=== PATIENT | female | born 1980 | race Caucasian/White ===

== ENCOUNTER → 2016-10-14 | Outpatient (CLI) | payer OTHER ==
[~2016-10-14] MED LIST: ACET-2267 PO; AMOX-358 PO; BPR150TCR PO; BUPR-168 PO; CATHETER FLUSH 10 ML SYR IV PRN; CEFD300C3 PO; CLIN-62 PO; CLIN150C2 PO; CLIN300C11 PO; CYAN250014 PO; DESV50TA PO; DOCU-143 PO; ESTR10TA PO; FLC100T1 PO; FLC150T PO; HORMONE CREAM TOP; HYDR-1231 PO; HYDR-2890 PO; HYDR-3583 PO; HYDR-3714 PO; HYDR-3812 PO; HYOS0.1217 PO; IBUP-15 PO; IBUP-2055 PO; IOHEXOL 350 MG/ML 100 ML (OMNIPAQUE 350) VIAL IV ONE; LEVO750T6 PO; LISD40CA3 PO; METR500T PO; MINO100C2 PO; MTR500T PO; MULT1CAP27 PO; MUPI15CR TP; NAPR-243 PO; NITR100C3 PO; NS 100 ML (IVPB) BAG IV ONE; NYST1000 PO; OMEG10005 PO; ONDA-42 SL; OXYC-197 PO; PHEN200T27 PO; PHEN37.555 PO; SULF-222 PO; SULF1TAB35 PO; SULF1TAB38 PO; TETR500C2 PO; TRAM50TA2 PO; TRM50T PO; VICODIN; VICODIN 5 MG
--- OUTSIDE RECORDS SUMMARY | 2016-10-14 09:13 | XMS REPORT | Continuity of Care Document ---
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 Name Role Phone FINN SALAS DO PCP Insurance Providers Payer Name Policy Number Subscriber Name Relationship [facility] [id number] Deirdre Milligan 18 Self / Same As Patient Advance Directives Directive Response Recorded Date/Time Advance Directives No 02/19/16 10:00am Health Care Power of Associate Director Of Biostatistics No 02/19/16 10:00am Organ Donor Yes 02/19/16 10:00am Problems Active Problems Medical Problem Onset Date Status Abscess of abdominal wall Unknown Acute Abscess of breast Unknown Acute Cellulitis Unknown Acute Cellulitis of abdominal wall Unknown Acute Diarrhea Unknown Acute Encounter for incision and drainage procedure Unknown Acute Generalized abdominal pain Unknown Acute Generalized abdominal pain Unknown Acute Impetigo Unknown Acute Leukocytosis Unknown Acute Nausea and vomiting Unknown Acute Pain, abdominal, RLQ Unknown Acute Pain, abdominal, RUQ Unknown Acute Rectal bleeding Unknown Acute Vomiting and diarrhea Unknown Acute Vomiting and diarrhea Unknown Acute Wound check, abscess Unknown Acute Medications Current Home Medications Medication Dose Units Route Directions Days/Qty Instructions Start Date Docusate Sodium 100 Mg 100 Mg Oral Twice A Day 30 02/19/16 Hydrocodone/Acetaminophen 1 Each 1 Tab Oral Every 4HRS as needed for 20 02/19/16 Past Home Medications Medication Directions Ordered Status Estradiol 10 Mcg Tablet, 10 Mg Oral Twice A Day 08/28/10 Discontinued Naproxen 500 Mg Tablet, 1 Each Oral Three Times A Day And Prn 08/28/10 Discontinued Tramadol Hcl 50 Mg Tab, 50 Mg Oral Q4-6HOURS as needed 08/28/10 Discontinued Bupropion Hcl 75 Mg Tab, 150 Mg Oral Daily 01/16/11 Discontinued [Vicodin 5MG] , 01/21/11 Discontinued Hydrocodone Bit/Acetaminophen 1 Each Tablet, 1 Each Oral As Needed 06/16/11 Discontinued Desvenlafaxine Succinate 50 Mg Tab.sr.24h, 50 Mg Oral Daily 10/17/11 Discontinued [Hormone Cream] , Topically Daily 10/17/11 Discontinued Metronidazole 500 Mg Tab, 1 Each Oral Four Times Daily 10/26/11 Discontinued Trimethoprim/Sulfamethoxazole 1 Ea Tablet, 1 Ea Oral Twice A Day 10/26/11 Discontinued Fluconazole 100 Mg Tablet, 1 Each Oral Daily 10/26/11 Discontinued Tetracycline Hcl 500 Mg Capsule, 500 Mg Oral Four Times Daily 10/26/11 Discontinued Acetaminophen/Hydrocodone Bitart 1 Tab Tab, 1 - 2 Ea Oral Q 4 - 6 Hr Prn 07/27 Discontinued Nystatin (Mycostatin Oral Suspension) 60 Ml Btl, 0 Oral Four Times Daily 07/27 Discontinued Multivitamins 1 Each Capsule, 1 Each Oral Daily 03/05/12 Discontinued [place]-3 Fatty Acids 1,000 Mg Capsule, 1000 Mg Oral Daily 03/05/12 Discontinued Lisdexamfetamine Dimesylate 40 Mg Capsule, 40 Mg Oral Daily 10/21/12 Discontinued Trimethoprim/Sulfamethoxazole 1 Ea Tablet, 1 Ea Oral Twice A Day 03/21/13 Discontinued Phenazopyridine Hcl 200 Mg Tablet, 1 Each Oral Three Times A Day And Prn 03/27 Discontinued Tramadol Hcl 50 Mg Tablet, 50 Mg Oral Every 4HRS 03/21/13 Discontinued Levofloxacin 750 Mg Tablet, 750 Mg Oral Daily 07/18/13 Discontinued Clindamycin Hcl 150 Mg Cap, 3 Each Oral Every 8HRS 07/18/13 Discontinued Trimethoprim/Sulfamethoxazole 1 Ea Tablet, 1 Ea Oral Twice A Day 07/18/13 Discontinued Fluconazole 150 Mg Tablet, 1 Each Oral Once 07/18/13 Discontinued Phentermine Hcl 37.5 Mg Capsule, 37.5 Mg Oral As Needed 03/15/14 Discontinued Acetaminophen/Hydrocodone Bitart 1 Each Tablet, 1 Each Oral Every 4HRS as needed for Pain 07/01/14 Discontinued Clindamycin Hcl 150 Mg Capsule, 150 Mg Oral Three Times A Day 02/15/15 Discontinued Trimethoprim/Sulfamethoxazole 1 Ea Tablet, 1 Tab Oral Twice A Day 02/15/15 Discontinued Metronidazole Tab, 500 Mg Oral Twice A Day 02/15/15 Discontinued Hydrocodone Bit/Acetaminophen 1 Tab Tablet, 1 Tab Oral Every 4HRS as needed for Pain 02/15/15 Discontinued Clindamycin Hcl 150 Mg Capsule, 150 Mg Oral Every 6 Hours 02/15/15 Discontinued Hyoscyamine Sulfate (Levsin) 0.125 Mg/Tab Tab.rapdis, 1 Each Oral Every 4HRS as needed for Cramps 03/29/15 Discontinued Ondansetron Hcl 4 Mg Tab, 4 Mg Sublingual Every 4HRS as needed for Nausea Discontinued Hydrocodone Bit/Acetaminophen 1 Tab Tablet, 1 Tab Oral Every 6 Hours as needed for Pain 03/29/15 Discontinued Ibuprofen 200 Mg Tablet, 800 Mg Oral Every 6 Hours 05/30/15 Discontinued Clindamycin Hcl 300 Mg Capsule, 450 Mg Oral Every 6 Hours 05/30/15 Discontinued Ibuprofen 200 Mg Tablet, 800 Mg Oral Every 6 Hours as needed for Pain Discontinued Amoxicillin/Potassium Clav 1 Each Tablet, 1 Each Oral Twice A Day 06/11/15 Discontinued Amoxicillin/Potassium Clav 1 Each Tablet, 1 Tab Oral Twice A Day 06/26/15 Discontinued Ibuprofen 200 Mg Tablet, 600 Mg Oral Every 6 Hours as needed for Pain Discontinued Sulfamethoxazole/Trimethoprim 1 Each Tablet, 1 Each Oral Twice A Day Discontinued Minocycline Hcl 100 Mg Capsule, 100 Mg Oral Twice A Day 12/20/15 Discontinued Tramadol Hcl 50 Mg Tablet, 50 Mg Oral Every 4HRS as needed for Pain 12/20/15 Discontinued Social History Social History Problem Response Recorded Date/Time Alcohol Use Denies Use 02/19/2016 10:00am Recreational Drug Use No 02/19/2016 10:00am Recent Foreign Travel No 03/15/2014 9:57am Recent Infectious Disease Exposure No 03/15/2014 9:57am Hospitalization with Isolation Denies 03/15/2014 9:57am Sexually Transmitted Disease No 02/19/2016 10:00am HIV/AIDS No 02/19/2016 10:00am Do you dip or chew tobacco? No 12/20/2015 10:15pm Sexually Transmitted Disease No 02/19/2016 10:00am Hospitalization with Isolation Denies 03/15/2014 9:57am Hx Sexually Transmitted Disorders No 10/26/2012 11:18am Hospital Discharge Instructions No hospital discharge instructions. Plan of Care Prescriptions See Medication Section Functional Status No functional status results. Allergies, Adverse Reactions, Alerts Allergen Type Severity Reaction Status Last Updated ciprofloxacin HCl Allergy Unknown Active 12/20/15 ciprofloxacin ([id number]) Allergy Unknown Active 12/20/15 duloxetine ([id number]) Allergy Unknown Active 12/20/15 Immunizations No immunization records. Vital Signs No known vital signs results. Results Microbiology Results Procedure Source Result Collection Date/Time Result Date/Time Anaerobic Culture Tissue, Abdomen No anaerobes isolated 03/29/2016 10:59am 04/02/2016 10:59am Wound Culture Tissue, Abdomen STAPHYLOCOCCUS AUREUS 03/29/2016 10:59am 10:59am Anaerobic Culture Tissue, Abdominal No anaerobes isolated 05/10/2016 10: 00am 05/13/2016 12:33pm Wound Culture Tissue, Abdominal STAPHYLOCOCCUS AUREUS 05/10/2016 10:00am 7:28am Procedures No known history of procedures. Encounters Encounter Location Arrival/Admit Date Discharge/Depart Date Attending Provider Discharged Recurring [facility] 05/10/16 9:40am 11:59pm EMILIANA HUNT MD
--- NOTE | 2016-10-14 10:02 | Diagnostic Imaging Report ---
PROCEDURE: CT abdomen with contrast only. TECHNIQUE: Multiple contiguous axial images were obtained through the abdomen after the administration of intravenous contrast. INDICATION: Infected mesh. 100 mL of Omnipaque 350 is administered intravenously. FINDINGS: The lung bases are clear. The liver, the spleen, the adrenals, and the pancreas appear unremarkable. Cholecystectomy clips are seen. There are hernia defects in the anterior abdominal wall above the level of the umbilicus with two separate defects and question of a third small defect all around the midline above the umbilicus level along the anterior abdominal wall. Radiopaque markers of a mesh are seen along the anterior abdominal wall below the level of the umbilicus. There is diastases of the recti and bulging of the abdominal contents around the umbilicus level. There is no fluid collection or abscess. The herniated content is mostly omental fat in the above-mentioned hernias with minimal portion of bowel loops projecting into the anterior bulge and in the diastasis area and into one of the abdominal wall defects without CT evidence of incarceration or obstruction. The appendix is normal. The kidneys have symmetric enhancement and contrast excretion. No peritoneal fluid collection or free fluid in the abdomen identified. The osseous structures appear grossly unremarkable. IMPRESSION: There is diastasis of the recti with supraumbilical small ventral hernias. No fluid collection or abscess seen. Dictated by: Dictated on workstation # [id number]
== END ==
LOC: RAD 09:09
PROVIDERS: ATTEND Surgery
DX: Q79.59 Other congenital malformations of abdominal wall (principal); K43.9 Ventral hernia without obstruction or gangrene
CPT/HCPCS: 74160

== ENCOUNTER 2016-10-24 10:40 | Outpatient (CLI) | payer OTHER ==
[~2016-10-24] VITALS: Ht 165.1 cm; Wt 101.2 kg
[~2016-10-24 10:40] MED LIST changes: -ACET-2267 PO; -CATHETER FLUSH 10 ML SYR IV PRN; -CYAN250014 PO; -IOHEXOL 350 MG/ML 100 ML (OMNIPAQUE 350) VIAL IV ONE; -NS 100 ML (IVPB) BAG IV ONE; -OXYC-197 PO
--- OUTSIDE RECORDS SUMMARY | 2016-10-24 10:46 | XMS REPORT | Continuity of Care Document ---
Author Author [facility] Organization [facility] Address Unknown Phone Unavailable Care Team Providers Care Workers Compensation Coordinator Name Role Phone FINN SALAS DO PCP Insurance Providers Payer Name Policy Number Subscriber Name Relationship [facility] [id number] Deirdre Milligan 18 Self / Same As Patient Advance Directives Directive Response Recorded Date/Time Advance Directives No 02/19/16 10:00am Health Care Power of General Supervisor No 02/19/16 10:00am Organ Donor Yes 02/19/16 [...] Capsule, 1 Each Oral Daily 03/05/12 Discontinued [place]-3 Fatty Acids 1,000 Mg Capsule, 1000 Mg [...] ciprofloxacin HCl Allergy Unknown Active 12/20/15 ciprofloxacin ([id number]) Allergy Unknown Active 12/20/15 duloxetine ([id number]) Allergy Unknown Active 12/20/15 Immunizations No immunization [...] Discharge/Depart Date Attending Provider Discharged Recurring [facility] 05/10/16 9:40am 11:59pm EMILIANA HUNT MD
[2016-10-24 10:49] VITALS: BP 128/78
[2016-10-24 11:12] LABS: BASOPHILS % (AUTO) 0 % (0-10); EOSINOPHILS # (AUTO) 0.1 10^3/uL (0.0-0.3); EOSINOPHILS % (AUTO) 1 % (0-10); LYMPHOCYTES # (AUTO) 2.5 X 10^3 (1.0-4.0); LYMPHOCYTES % (AUTO) 25 % (12-44); MEAN CORPUSCULAR HEMOGLOBIN 31 PG (25-34); MEAN CORPUSCULAR HGB CONC 34 G/DL (32-36); MEAN CORPUSCULAR VOLUME 93 FL (80-99); MEAN PLATELET VOLUME 10.4 FL (7.4-10.4); MONOCYTES # (AUTO) 0.6 X 10^3 (0.0-1.0); MONOCYTES % (AUTO) 6 % (0-12); NEUTROPHILS # (AUTO) 6.6 X 10^3 (1.8-7.8); NEUTROPHILS % (AUTO) 67 % (42-75); PLATELET COUNT 204 10^3/uL (130-400); RED BLOOD COUNT 4.71 10^6/uL (4.35-5.85); RED CELL DISTRIBUTION WIDTH 12.4 % (10.0-14.5); WHITE BLOOD COUNT 9.8 10^3/uL (4.3-11.0)
== END 2016-10-24 11:05 | disposition home or self-care (01) ==
LOC: PREOP 10:40
PROVIDERS: ATTEND Surgery
DX: Z01.812 Encounter for preprocedural laboratory examination (principal); Z11.2 Encounter for screening for other bacterial diseases; T81.4XXA Infection following a procedure, initial encounter
CPT/HCPCS: 36415; 85025; 87081

== ENCOUNTER 2016-10-30 07:45 | Inpatient (IN) | payer OTHER ==
[~2016-10-30] VITALS: Ht 165.1 cm; Wt 101.2 kg
--- OUTSIDE RECORDS SUMMARY | 2016-10-30 07:48 | XMS REPORT | Continuity of Care Document ---
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 Name Role Phone FINN SALAS DO PCP Insurance Providers Payer Name Policy Number Subscriber Name Relationship [facility] [id number] Deirdre Milligan 18 Self / Same As Patient Advance Directives Directive Response Recorded Date/Time Advance Directives No 02/19/16 10:00am Health Care Power of Psychiatric Nursing Aide No 02/19/16 10:00am Organ Donor Yes 02/19/16 [...] Capsule, 1 Each Oral Daily 03/05/12 Discontinued [place]-3 Fatty Acids 1,000 Mg Capsule, 1000 Mg [...] ciprofloxacin HCl Allergy Unknown Active 12/20/15 ciprofloxacin ([id number]) Allergy Unknown Active 12/20/15 duloxetine ([id number]) Allergy Unknown Active 12/20/15 Immunizations No immunization [...] Discharge/Depart Date Attending Provider Discharged Recurring [facility] 05/10/16 9:40am 11:59pm EMILIANA HUNT MD
--- OUTSIDE RECORDS SUMMARY | 2016-10-30 07:49 | XMS REPORT | Continuity of Care Document ---
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 Name Role Phone FINN SALAS DO PCP Insurance Providers Payer Name Policy Number Subscriber Name Relationship [facility] [id number] Deirdre Milligan 18 Self / Same As Patient Advance Directives Directive Response Recorded Date/Time Advance Directives No 02/19/16 10:00am Health Care Power of Field Training Manager No 02/19/16 10:00am Organ Donor Yes 02/19/16 [...] Capsule, 1 Each Oral Daily 03/05/12 Discontinued [place]-3 Fatty Acids 1,000 Mg Capsule, 1000 Mg [...] ciprofloxacin HCl Allergy Unknown Active 12/20/15 ciprofloxacin ([id number]) Allergy Unknown Active 12/20/15 duloxetine ([id number]) Allergy Unknown Active 12/20/15 Immunizations No immunization [...] Date Attending Provider Discharged Recurring [facility] 05/10/16 9:40am 11:59pm EMILIANA HUNT MD
[2016-10-30] MEDS ORDERED: VANCOMYCIN 1 GM ADD-VANTAGE VIAL IV ONE (07:51)
[2016-10-30] MEDS ORDERED: SODIUM CHLORIDE (ADD-VANTAGE) 250 ML ONE (07:51)
[2016-10-30] MEDS ORDERED: metroNIDAZOLE 500MG/100ML IVPB 100 ML ONE (07:51)
[2016-10-30] MEDS ORDERED: MIDAZOLAM 2 MG/2 ML (VERSED) VIAL ONE ×2 (07:52→08:07)
[2016-10-30] MEDS ORDERED: ONDANSETRON 4 MG/2 ML (SDV) Z0FRAN ONE ×2 (07:53→08:06)
[2016-10-30] MEDS ORDERED: FAMOTIDINE 20MG/2ML IV (PEPCID) ONE (07:53)
[2016-10-30] MEDS ORDERED: BUP/EPI 0.25% 1:200,000 (MARCAINE) 30 ML VIAL ONE (07:54)
[2016-10-30] MEDS ORDERED: ONDANSETRON 4 MG/2 ML (SDV) Z0FRAN IV ONE (08:00)
[2016-10-30] MEDS ORDERED: MIDAZOLAM 2 MG/2 ML (VERSED) VIAL IV ONE (08:00)
[2016-10-30] MEDS ORDERED: metroNIDAZOLE 500 MG/100 ML IVPB (PRE-MIX) IV ONE (08:00)
[2016-10-30] MEDS ORDERED: FAMOTIDINE 20MG/2ML IV (PEPCID) IV ONE (08:00)
[2016-10-30] MEDS ORDERED: VANCOMYCIN 1 GM/NS 250 ML IVPB IV ONE ×2 (08:00)
[2016-10-30] MEDS ORDERED: LACTATED RINGERS 1,000 ML IV ONE ×3 (08:06→10:52)
[2016-10-30] MEDS ORDERED: SUCCINYLCHOLINE INJ 100 MG/5 ML SYR ONE ×2 (08:06→10:16)
[2016-10-30] MEDS ORDERED: proPOfol 200 MG/20 ML (DIPRIVAN) VIAL IV ONE (08:06)
[2016-10-30] MEDS ORDERED: LIDOCAINE PF 2% 10 ML (XYLOCAINE) AMP ONE (08:06)
[2016-10-30] MEDS ORDERED: ROCURONIUM 50 MG/5 ML (ZEMURON) VIAL IV ONE (08:06)
[2016-10-30] MEDS ORDERED: fentaNYL INJECTION 100 MCG/2 ML AMP ONE ×3 (08:07→10:56)
[2016-10-30] MEDS ORDERED: DEXAMETHASONE PF 10 MG/ML (DECADRON) VIAL ONE (08:09)
[2016-10-30] MEDS ORDERED: LIDOCAINE 1% 10 MG/ML 0.2 ML SYR (FOR IV START) ONE (08:26)
[2016-10-30] MEDS: LACTATED RINGERS 1,000 ML IV PRN ×2 (08:27→09:30)
[2016-10-30 08:30] VITALS: BP 124/69
--- NOTE | 2016-10-30 08:48 | Progress Note-Pre Operative ---
Pre-Operative Progress Note H&P Reviewed The H&P was reviewed, patient examined and no changes noted. Date H&P Reviewed: Oct 30, 2016 Time H&P Reviewed: 08:48 Pre-Operative Diagnosis: Persistent abdominal sinus with infected mesh BRAYDON OAKLEY MD Oct 30, 2016 8:48 am
[2016-10-30] MEDS ORDERED: MEPERIDINE (DEMEROL) INJ 50 MG/ML IVP PRN (09:00)
[2016-10-30] MEDS ORDERED: ONDANSETRON 4 MG/2 ML (SDV) Z0FRAN IVP PRN (09:00)
[2016-10-30] MEDS ORDERED: LIDOCAINE 1% INJ 20 ML (XYLOCAINE) VIAL INJ ONE (10:00)
[2016-10-30] MEDS ORDERED: SEVOFLURANE (ULTANE) 15 ML INHAL SOLN ONE ×2 (10:16→11:03)
[2016-10-30] MEDS ORDERED: NEOSTIGMINE (BLOXIVERZ ) 1 MG/1ML 10 ML VIAL ONE (10:22)
[2016-10-30] MEDS ORDERED: GLYCOPYRROLATE 0.2 MG/ML (ROBINUL) 2 ML VIAL ONE (10:22)
[2016-10-30] MEDS ORDERED: morphine INJ 10 MG/ML 1ML (SYR OR VIAL) ONE (11:40)
[2016-10-30] MEDS ORDERED: HYDROmorphone (DILAUDID) 2 MG/ML VIAL ONE (11:41)
[2016-10-30] MEDS: morphine INJ 10 MG/ML 1ML (SYR OR VIAL) IVP PRN ×2 (11:46→12:00)
--- NOTE | 2016-10-30 12:04 | Progress Note-Post Operative ---
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 Small bowel resection Anesthesia Type Gen. Estimated blood loss (mL): 200 mL Specimen(s) collected infected mesh and enterocutaneous fistula BRAYDON OAKLEY MD Oct 30, 2016 12:04 pm
[2016-10-30] MEDS: HYDROmorphone (DILAUDID) 2 MG/ML VIAL IVP PRN ×2 (12:10→12:20)
[2016-10-30 13:00] VITALS: BP 104/71
[2016-10-30] MEDS: ONDANSETRON 4 MG/2 ML (SDV) Z0FRAN IVP PRN ×2 (13:01→18:52)
[2016-10-30] MEDS: LACTATED RINGERS 1,000 ML IV SCH ×2 (13:13→15:57)
[2016-10-30] MEDS ORDERED: KETOROLAC 30 MG/ML VIAL IVP ONE (14:30)
[2016-10-30 15:35] VITALS: BP 102/66
[2016-10-30] MEDS: ceFAZolin INJECTION 1,000 MG in NS (IVPB) 50 ML IV SCH ×2 (15:57→23:12)
[2016-10-30] MEDS: fentaNYL INJECTION 100 MCG/2 ML AMP IV PRN ×3 (15:57→20:09)
[2016-10-30 17:00] VITALS: BP 104/70
[2016-10-30] MEDS: metroNIDAZOLE 500MG/100ML IVPB 100 ML IV SCH (17:38)
[2016-10-30] MEDS ORDERED: SCOPOLAMINE 1.5 MG (TRANSDERM-SCOP) PATCH TOP SCH (20:00)
[2016-10-30 20:10] VITALS: BP 99/66
[2016-10-31] VITALS (7 sets, daily range): BP systolic 97–114; BP diastolic 54–71
[2016-10-31] MEDS: metroNIDAZOLE 500MG/100ML IVPB 100 ML IV SCH (00:37)
[2016-10-31] MEDS: fentaNYL INJECTION 100 MCG/2 ML AMP IV PRN (02:24)
[2016-10-31] MEDS: LACTATED RINGERS 1,000 ML IV SCH ×2 (04:40→12:04)
--- NOTE | 2016-10-31 08:56 | Anesthesia-General Post-Op ---
General Patient Condition Mental Status/LOC: Same as Preop Cardiovascular: Satisfactory Nausea/Vomiting: Absent Respiratory: Satisfactory Pain: Controlled Complications: Absent Post Op Complications Complications None Follow Up Care/Instructions Patient Instructions None needed. Anesthesia/Patient Condition Patient Condition Patient is doing well, no complaints, stable vital signs, no apparent adverse anesthesia problems. No complications reported per nursing. NICOLE SNEED CRNA Oct 31, 2016 08:56
[2016-10-31] MEDS: oxyCODONE/APAP 5/325MG (PERCOCET 5) TABLET PO PRN ×3 (09:18→18:50)
[2016-10-31] MEDS ORDERED: CATHETER FLUSH 10 ML SYR IV PRN (12:00)
[2016-10-31] MEDS: ENOXAPARIN 40 MG/0.4 ML (LOVENOX) SYR SC SCH (12:30)
--- NOTE | 2016-10-31 13:31 | OPERATIVE REPORT ---
PROCEDURE PHYSICIAN: BRAYDON OAKLEY DATE OF PROCEDURE: 10/30/2016 PREOPERATIVE DIAGNOSIS: 1. Persistent abdominal sinus. 2. Infected polypropylene mesh. POSTOPERATIVE DIAGNOSIS: 1. Enterocutaneous fistula. 2. Infected polypropylene mesh. OPERATION: 1. Exploratory laparotomy. 2. Removal of infected polypropylene mesh. 3. Small bowel resection with anastomosis. SURGEON: Chris. ANESTHESIA: General anesthesia. BLOOD LOSS: 200 mL. FLUIDS: 2200 mL of crystalloids. TYPE OF WOUND: Type III (contaminant wound). INDICATION FOR THE PROCEDURE: This lady underwent laparoscopic cholecystectomy with repair of a ventral hernia with permanent mesh in 2009. She has suffered persistent and unresolved drainage from the central aspect of the wound. Two years ago, she had undergone wound exploration and removal of what was reported as infected mesh. However, her symptoms continued and therefore, further exploration with a view to encountering additional pieces of the infected mesh and possibly performing small bowel resection were discussed with her. Informed consent was obtained after reviewing the operative details and highlighting increased complications and the possibility of persistent symptoms requiring additional surgery. DESCRIPTION OF PROCEDURE: She underwent mechanical bowel preparation including oral antibiotics the day before surgery. She was brought to the operating room and general anesthesia induced using an endotracheal tube. A gram of vancomycin and 500 mg of Flagyl were administered intravenously as prophylaxis against infection. Sequential compression devices were placed around her legs, to minimize the risk of venous thrombosis. A Foy catheter was placed to decompress the bladder during surgery. It was removed at the end of the operation. Abdomen was prepared and draped in the usual sterile manner. An elliptical incision about 12 cm long was made, incorporating the draining sinus at the center of the wound. The anterior rectus sheath was defined. Probing of the sinus led to a conglomerate mass incorporating pieces of polypropylene mesh, metallic tackers used to anchor the mesh and a segment of the small bowel. There was involvement of the small bowel leading to an enterocutaneous fistula. All the tackers were removed individually. The mass involving the infected mesh and the associated segment of the small bowel leading to enterocutaneous fistula were . The small bowel was resected (a total 15 cm in length) and a [id number] anastomosis created using a [id number]-75 stapler. The common enterotomy was closed using a TA 55 stapler. 3-0 silk suture was placed along the crotch of the anastomosis to avoid any tension on the staple line. The bowel was then placed back in the peritoneal cavity, which was thoroughly irrigated with saline. Further exploration did not reveal any other abnormality. Omentum was from the superior aspect of the incision and the transverse colon was found to be uninvolved. The fascia was then approximated using number 2 Prolene in a continuous fashion. Subcutaneous tissue was gently approximated using 0 PDS. Skin was left open in anticipation of healing by secondary intention. She tolerated the procedure well, was extubated in the operating room and taken to the recovery room in a stable condition. Auxier, sponges, and instruments were correct at the end of the operation. Job ID: [id number] Dictated Date: 10/30/2016 11:07:39 Transportation Equipment Painter Date: 10/31/2016 13:20:48 / yoel GEORGE
--- NOTE | 2016-10-31 16:35 | Progress Note-Standard ---
Standard Progress Note Progress Notes/Assess & Plan Progress/Assessment & Plan 10/31/16:pain control better. Postoperative nausea vomiting resolved. Tolerating a soft diet. Wound inspected and found to be acceptable. Encourage ambulation. 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
[2016-11-01 00:29] VITALS: BP 95/60
[2016-11-01] MEDS: oxyCODONE/APAP 5/325MG (PERCOCET 5) TABLET PO PRN ×2 (00:42→08:37)
[2016-11-01 08:00] VITALS: BP 116/74
[2016-11-01] MEDS ORDERED: OXYC-197 PO (08:47)
--- NOTE | 2016-11-01 08:48 | Discharge Inst-Simple/Standard ---
Discharge Inst-Standard Discharge Medications New, Converted or Re-Newed RX: RX on Chart Patient Instructions/Follow Up Plan of Care/Instructions/FU: dressing changes Xeroform and ABDs once a day. Follow-up with me in 10 days Activity as Tolerated: No Goal: no lifting over 10 pounds Discharge Diet: No Restrictions BRAYDON OAKLEY MD Nov 01, 2016 08:48
[2016-11-01] MEDS ORDERED: MAGNESIUM CITRATE 300 ML BTL PO NR (11:00)
[2016-11-01] MEDS: ENOXAPARIN 40 MG/0.4 ML (LOVENOX) SYR SC SCH (11:55)
[2016-11-01] MEDS ORDERED: ONDANSETRON 4 MG (ZOFRAN) ORAL DISSOLVE TAB PO NR (13:15)
[2016-11-01] MEDS ORDERED: ONDANSETRON 4 MG (ZOFRAN) ORAL DISSOLVE TAB ONE (13:17)
[2016-11-01 14:19] VITALS: BP 116/74
[2016-11-02] MEDS ORDERED: SCOPOLAMINE PATCH REMOVAL TP SCH (19:59)
== END 2016-11-01 14:24 | disposition home or self-care (01) | DRG 330 ==
LOC: SDC 07:45 → 4TH 12:02
PROVIDERS: ADMIT Surgery; ATTEND Surgery
PROC: 0DC80ZZ Extirpation of Matter from Small Intestine, Open Approach (ICD-10-PCS; 2016-10-30)
PROC: 0DT80ZZ Resection of Small Intestine, Open Approach (ICD-10-PCS; principal; 2016-10-30 08:45)
DX: K63.2 Fistula of intestine (principal); T85.79XA Infection and inflammatory reaction due to other internal prosthetic devices, implants and grafts, initial encounter; K21.9 Gastro-esophageal reflux disease without esophagitis; F17.210 Nicotine dependence, cigarettes, uncomplicated; E66.01 Morbid (severe) obesity due to excess calories; Z68.37 Body mass index [BMI] 37.0-37.9, adult
CPT/HCPCS: 88300; 88305; 94664

== ENCOUNTER 2017-01-21 22:47 | Inpatient (IN) | payer OTHER ==
[~2017-01-21] VITALS: Ht 165.1 cm; Wt 97.2 kg
[~2017-01-21 22:47] MED LIST changes: +OXYC-197 PO
[2017-01-21 23:37] LABS: BILIRUBIN,URINE NEGATIVE (NEGATIVE); KETONES,URINE 1+ (NEGATIVE); LEUKOCYTE ESTERASE ,URINE 2+ (NEGATIVE); NITRITE,URINE NEGATIVE (NEGATIVE); PH,URINE 5 (5-9); PROTEIN,URINE 2+ (NEGATIVE); UROBILINOGEN,URINE 4 MG/DL (NORMAL)
[2017-01-21 23:43] LABS: BASOPHILS % (AUTO) 0 % (0-10); EOSINOPHILS # (AUTO) 0.2 10^3/uL (0.0-0.3); EOSINOPHILS % (AUTO) 1 % (0-10); LYMPHOCYTES # (AUTO) 3.1 X 10^3 (1.0-4.0); LYMPHOCYTES % (AUTO) 26 % (12-44); MEAN CORPUSCULAR HEMOGLOBIN 31 PG (25-34); MEAN CORPUSCULAR HGB CONC 34 G/DL (32-36); MEAN CORPUSCULAR VOLUME 92 FL (80-99); MEAN PLATELET VOLUME 10.2 FL (7.4-10.4); MONOCYTES % (AUTO) 8 % (0-12); NEUTROPHILS # (AUTO) 7.7 X 10^3 (1.8-7.8); NEUTROPHILS % (AUTO) 64 % (42-75); PLATELET COUNT 220 10^3/uL (130-400); RED BLOOD COUNT 4.71 10^6/uL (4.35-5.85); RED CELL DISTRIBUTION WIDTH 12.4 % (10.0-14.5)
[2017-01-21 23:50] LABS: SQUAMOUS EPITHELIAL CELL,UR 0-2 /HPF
[2017-01-22] VITALS (7 sets, daily range): BP systolic 93–110; BP diastolic 59–68
[2017-01-22] LABS: ALANINE AMINOTRANSFERASE 26 U/L (0-55); ALBUMIN 4.3 G/DL (3.2-4.5); ANION GAP 11 MMOL/L (5-14); ASPARTATE AMINO TRANSFERASE 18 U/L (5-34); BILIRUBIN,TOTAL 0.4 MG/DL (0.1-1.0); BLOOD UREA NITROGEN 10 MG/DL (7-18); BUN/CREATININE RATIO 10; CALCIUM 9.6 MG/DL (8.5-10.1); CARBON DIOXIDE 27 MMOL/L (21-32); CHLORIDE 104 MMOL/L (98-107); CREATININE SERUM 1.02 MG/DL (0.60-1.30); GFR ESTIMATED > 60; GLUCOSE 100 MG/DL (70-105); POTASSIUM 3.6 MMOL/L (3.6-5.0); SODIUM 142 MMOL/L (135-145); TOTAL PROTEIN 7.3 G/DL (6.4-8.2)
[2017-01-22] MEDS ORDERED: NS IV 1000 ML 1,000 ML IV ONE (00:19)
[2017-01-22] MEDS ORDERED: RT-ALBUTEROL/IPRATROPIUM 3 ML (DUONEB) VIAL INH ONE (00:30)
--- NOTE | 2017-01-22 01:56 | ED Abdominal Pain ---
General Chief Complaint: Abdominal/GI Problems Stated Complaint: POST SURGERY STOMACH PAIN,DIZZY Nursing Triage Note: PT REPORTS TO ER WITH COMPLAINTS OF ABDOMINAL PAIN. SHE HAS HAD SHARP SPASMS OVER THE PAST TWO WEEKS AND WITHIN THE LAST TWO DAYS HER ABDOMEN HAS BECOME DISTENDED AND SHE IS EXPERIENCING MORE RADIATING PAIN AND BLOATING. SHE HAD SURGERY ON Oct AND STATES THAT THE PAIN IS CENTERED AROUND HER INCISION SITE. PT HAS A FOLLOW-UP APPOINTMENT WITH DR. OAKLEY TOMORROW 01/22 BUT STATES THAT THE PAIN WAS TOO BAD TO WAIT. Sepsis Screen: No Definite Risk Source of Information: Patient Exam Limitations: No Limitations History of Present Illness Time Seen By Provider: 23:05 Initial Comments This 36-year-old young woman presents to the emergency room with complaints of abdominal pain increasing in intensity over the past 2 weeks. She has a history of an enterocutaneous fistula and infected polypropylene mesh for which she underwent surgery October 31. She had the mesh removed and a small bowel resection performed by Dr. Oakley. She did fairly well postoperatively but the past 2 weeks pain and spasms have been increasing. She feels bloated and swollen. She reports a small hole has developed in her abdominal scar that is draining a small amount of fluid. She reports her pain now is actually worse then it was before her surgery. She has had no measured fevers but she has felt feverish subjectively over the past couple of days. Associated symptoms include loose stools and nausea. She feels overly full when eating. She has had some recent wheezing as well. She denies urinary symptoms. She also reports some recent wheezing. Allergies and Home Medications Allergies Coded Allergies: ciprofloxacin (Unverified Allergy, Unknown, 12/20/15) ciprofloxacin HCl (Unverified Allergy, Unknown, 12/20/15) duloxetine (Verified Allergy, Unknown, 12/20/15) Home Medications Oxycodone HCl/Acetaminophen 1 Each Tablet, 1 EACH PO Q4H PRN for ABDOMINAL PAIN , #30 Prescribed by: BRAYDON OAKLEY on 11/01/16 4733 Review of Systems Constitutional: see HPI EENTM: No Symptoms Reported Respiratory: No Symptoms Reported Cardiovascular: No Symptoms Reported Gastrointestinal: See HPI Genitourinary: No Symptoms Reported Musculoskeletal: no symptoms reported Skin: see HPI Psychiatric/Neurological: No Symptoms Reported Endocrine: No Symptoms Reported Hematologic/Lymphatic: No Symptoms Reported Past Jemgkdv-Pmxjqg-Egluqk Hx Patient Social History Alcohol Use: Denies Use Recreational Drug Use: No Smoking Status: Current Everyday Smoker Type Used: Cigarettes 2nd Hand Smoke Exposure: Yes Recent Foreign Travel: No Contact w/Someone Who Travel: No Recent Infectious Disease Expo: No Recent Hopitalizations: No Immunizations Up To Date Tetanus Booster (TDap): Less than 5yrs Date of Pneumonia Vaccine: Sep 15, 2009 Date of Influenza Vaccine: Jul 11, 2016 Seasonal Allergies Seasonal Allergies: No Surgeries HX Surgeries: Yes (LT BREAST BX AND MULTIPLE LT BREAST DEBRIDEMENTS, HERNIA SX x6, C/S x4) Surgeries: Abdominal (enterocutaneous fistula. 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 Genitourinary Hx Genitourinary Disorders: Yes (HX OF URINARY TRACT INFECTIONS) Genitourinary Disorders: UTI-Chronic Gastrointestinal Hx Gastrointestinal Disorders: Yes (UMBILICAL & INCISIONAL HERNIA, GASTRITIS) Gastrointestinal Disorders: Abdominal Hernia, Gastroesophageal Reflux, Gall Bladder Disease Musculoskeletal Hx Musculoskeletal Disorders: Yes Musculoskeletal Disorders: Degenerate Disk Disease, Scoliosis Endocrine Hx Endocrine Disorders: No HEENT HX ENT Disorders: No Loss of Vision: Denies Hearing Impairment: Denies Cancer Hx Cancer: No Psychosocial Hx Psychiatric Problems: Yes Behavioral Health Disorders: ADD/ADHD, Depression Integumentary HX Skin/Integumentary Disorder: Yes (CHRONIC BREAST INFECTIONS, ABDOMINAL WALL CELLULITIS) Skin/Integumentary Disorders: Psoriasis Blood Transfusions Hx Blood Disorders: No Adverse Reaction to a Blood Tr: No Family Medical History Significant Family History: Cancer, GI Disease Family Medial History: Arthritis 19 MOTHER Asthma 19 MOTHER G8 BROTHER Cardiovascular disease 19 FATHER Colon cancer Deafness or hearing loss 19 MOTHER (grandfather) Diabetes mellitus 19 FATHER Drug abuse G8 BROTHER Gastroenteritis G8 SISTER (CROHNS) Headache disorder 19 MOTHER Hypertension 19 FATHER 19 MOTHER Myocardial infarction 19 FATHER Psychosocial problem 19 MOTHER Respiratory disorder 19 FATHER Physical Exam Vital Signs VS - Last 72 Hours, by Label 01/21/17 01/22/17 23:08 00:28 Temp 98.8 Pulse 121 Resp 24 B/P (MAP) 133/102 Pulse Ox 97 97 O2 Delivery Room Air Capillary Refill : Less Than 3 Seconds General Appearance: WD/WN, no apparent distress HEENT: PERRL/EOMI, normal ENT inspection, pharynx normal Neck: normal inspection Respiratory: no respiratory distress, no accessory muscle use, wheezing Cardiovascular: regular rate, rhythm, no edema, no murmur Gastrointestinal: normal bowel sounds, soft, tenderness (tenderness in the area surrounding her scar. 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 as tested, no motor/sensory deficits, alert, normal mood/affect, oriented x 3 Skin: normal color, warm/dry Focused Exam Lactic Acid Level Progress/Results/Core Measures Results/Orders Lab Results Laboratory Tests Test 01/21/17 23:27 01/21/17 23:32 Range/Units Urine Color LIANNA H Urine Clarity SLIGHTLY CLOUDY Urine pH 5 5-9 Urine Specific [place] 1.030 H 1.016-1.022 Urine Protein 2+ H NEGATIVE Urine Glucose (UA) NEGATIVE NEGATIVE Urine Ketones 1+ H NEGATIVE Urine Nitrite NEGATIVE NEGATIVE Urine Bilirubin NEGATIVE NEGATIVE Urine Urobilinogen 4 H NORMAL MG/DL Urine Leukocyte Esterase 2+ H NEGATIVE Urine RBC (Auto) NEGATIVE NEGATIVE Urine RBC NONE /HPF Urine WBC 2-5 /HPF Urine Squamous Epithelial Cells 0-2 /HPF Urine Crystals NONE /LPF Urine Bacteria FEW H /HPF Urine Casts NONE /LPF Urine Mucus LARGE H /LPF Urine Culture Indicated YES White Blood Count 12.0 H 4.3-11.0 10^3/uL Red Blood Count 4.71 4.35-5.85 10^6/uL Hemoglobin 14.8 11.5-16.0 G/DL Hematocrit 44 35-52 % Mean Corpuscular Volume 92 80-99 FL Mean Corpuscular Hemoglobin 31 25-34 PG Mean Corpuscular Hemoglobin Concent 34 32-36 G/DL Red Cell Distribution Width 12.4 10.0-14.5 % Platelet Count 220 130-400 10^3/uL Mean Platelet Volume 10.2 7.4-10.4 FL Neutrophils (%) (Auto) 64 42-75 % Lymphocytes (%) (Auto) 26 12-44 % Monocytes (%) (Auto) 8 0-12 % Eosinophils (%) (Auto) 1 0-10 % Basophils (%) (Auto) 0 0-10 % Neutrophils # (Auto) 7.7 1.8-7.8 X 10^3 Lymphocytes # (Auto) 3.1 1.0-4.0 X 10^3 Monocytes # (Auto) 1.0 0.0-1.0 X 10^3 Eosinophils # (Auto) 0.2 0.0-0.3 10^3/uL Basophils # (Auto) 0.0 0.0-0.1 10^3/uL Sodium Level 142 135-145 MMOL/L Potassium Level 3.6 3.6-5.0 MMOL/L Chloride Level 104 98-107 MMOL/L Carbon Dioxide Level 27 21-32 MMOL/L Anion Gap 11 5-14 MMOL/L Blood Urea Nitrogen 10 7-18 MG/DL Creatinine 1.02 0.60-1.30 MG/DL Estimat Glomerular Filtration Rate > 60 BUN/Creatinine Ratio 10 Glucose Level 100 70-105 MG/DL Calcium Level 9.6 8.5-10.1 MG/DL Total Bilirubin 0.4 0.1-1.0 MG/DL Aspartate Amino Transf (AST/SGOT) 18 5-34 U/L Alanine Aminotransferase (ALT/SGPT) 26 0-55 U/L Alkaline Phosphatase 80 40-136 U/L Total Protein 7.3 6.4-8.2 G/DL Albumin 4.3 3.2-4.5 G/DL My Orders Orders - TYE ADKINS MD Cbc With Automated Diff (01/21/17 23:04) Comprehensive Metabolic Panel (01/21/17 23:04) Ua Culture If Indicated (01/21/17 23:04) Saline Lock/Iv-Start (01/21/17 23:04) Urine Culture (01/21/17 23:27) Ns Iv 1000 Ml (Sodium Chloride 0.9%) (01/22/17 00:19) Ct Abdomen/Pelvis W (01/22/17 00:19) Albuterol/Ipra Inhalation Soln (Duoneb I (01/22/17 00:30) Svn Sm Volume Nebulizer Rt-Rfs (01/22/17 00:19) Wound Culture (01/22/17 00:21) Blood Culture (01/22/17 01:46) Lactic Acid Analyzer (01/22/17 01:46) Piperacillin Sodium/Tazobactam (Zosyn Vi (01/22/17 02:00) Fentanyl Injection (Sublimaze Injection (01/22/17 02:00) Medications Given in ED Current Medications Medications Dose Ordered Sig/Sheila Route Start Time Stop Time Status Last Admin Dose Admin Albuterol/ Ipratropium 3 ml ONCE ONCE INH 01/22/17 00:30 01/22/17 00:31 DC 01/22/17 00:28 3 ML Sodium Chloride 1,000 ml @ 0 mls/hr Q0M ONCE IV 01/22/17 00:19 01/22/17 00:21 DC 01/22/17 00:52 1,000 MLS/HR Vital Signs/I&O Vital Sign - Last 12Hours 01/21/17 01/22/17 23:08 00:28 Temp 98.8 Pulse 121 Resp 24 B/P (MAP) 133/102 Pulse Ox 97 97 O2 Delivery Room Air Blood Pressure Mean: 112 Progress Note : Progress Note CT viewed by me and report reviewed. Infectious process cannot be ruled out. Cellulitis with suspected sepsis is now considered. Case was reviewed with Dr. Echeverria. We agree that the patient should be admitted and started on IV antibiotics. Zosyn was ordered to initiate in the emergency room after blood cultures drawn. Fentanyl was ordered for pain. Diagnostic Imaging Diagonstic Imaging: CT Plain Films/CT/US/NM/MRI: abdomen, pelvis Comments CT abdomen and pelvis viewed by me and [facility] report reviewed. There are inflammatory changes surrounding the post surgical scar. There is a low- density fluid collection measuring 1.5 x 2 cm. Seroma versus infectious process suspected. Departure Communication Time/Spoke to Admitting Phy: 01:[address] Echeverria Impression Impression: Primary Impression: Sepsis Qualified Codes: A41.9 - Sepsis, unspecified organism Additional Impression: Abdominal wall cellulitis Disposition: ADMITTED INPATIENT Condition: Improved Time/Decision to Admit Time: 01:40 Departure-Patient Inst. Referrals: FABI ABDALLA DO (PCP/Family) Primary Care Physician TYE ADKINS MD January 22, 2017 01:56
[2017-01-22] MEDS ORDERED: fentaNYL INJECTION 100 MCG/2 ML AMP IVP ONE (02:00)
[2017-01-22] MEDS ORDERED: PIPERACILLIN SODIUM/TAZOBACTAM 4.5 GM in NS (IVPB) 100 ML IV ONE (02:00)
[2017-01-22] MEDS ORDERED: NS IV 1000 ML 1,000 ML ONE (03:56)
[2017-01-22] MEDS ORDERED: fentaNYL INJECTION 100 MCG/2 ML AMP IV PRN (04:00)
[2017-01-22] MEDS: NS IV 1000 ML 1,000 ML IV SCH ×2 (04:13→12:13)
[2017-01-22] MEDS ORDERED: ONDANSETRON 4 MG/2 ML (SDV) Z0FRAN IV PRN (04:15)
[2017-01-22] MEDS ORDERED: VANCOMYCIN 1 GM/NS 250 ML IVPB IV ONE ×2 (04:15)
[2017-01-22] MEDS: PIPERACILLIN/TAZOBACTAM 4.5 GM/NS100 ML IVPB IV SCH ×6 (06:25→21:12)
--- NOTE | 2017-01-22 07:24 | Diagnostic Imaging Report ---
PROCEDURE: CT abdomen and pelvis with contrast. TECHNIQUE: Multiple contiguous axial images were obtained through the abdomen and pelvis after administration of intravenous contrast. INDICATION: Abdominal pain. History of bowel resection three months ago. Persistent pain. Comparison with 10/14/2016. FINDINGS: Lung bases are clear. Liver appears normal. Gallbladder is absent. Bile ducts are normal. Pancreas and spleen are normal. Adrenal glands are normal. The kidneys appear normal. There is normal enhancement of the abdominal organs and vessels following IV contrast. Aorta appears normal. The bowel gas pattern is normal with no distended loops of bowel. Anastomotic suture line in the left lower abdomen appears widely patent. The appendix is visualized and normal. The colon is decompressed. There are few diverticula in the sigmoid colon with no evidence of diverticulitis. Uterus is absent. There is no free air or free fluid present. Midline abdominal incision is noted. There is mild induration along the incision line. There is a small area of decreased density measuring approximately 2 x 1.4 cm near the umbilicus that likely represent small seroma. IMPRESSION: 1. No evidence of bowel obstruction. Anastomotic suture line in right lower quadrant is widely patent. No evidence of anastomotic leak. 2. Mild induration along the midline incision with a small fluid collection near the umbilicus and subcutaneous fat. This likely represents seroma. Clinical correlation. These findings are in agreement with the preliminary report. Dictated by: Dictated on workstation # [id number]
[2017-01-22] MEDS: VANCOMYCIN 1250 MG/NS 250 ML IVPB IV SCH ×2 (10:03)
[2017-01-22] MEDS ORDERED: IBUP-2055 PO (11:25)
[2017-01-22] MEDS ORDERED: CYAN250014 PO (11:25)
[2017-01-22] MEDS ORDERED: ACET-2267 PO (11:25)
[2017-01-22] MEDS ORDERED: IBUPROFEN 600 MG (MOTRIN) TAB PO ONE (14:25)
--- NOTE | 2017-01-22 17:30 | History & Physicial ---
History of Present Illness History of Present Illness Reason for visit/HPI Increased abdominal pain Date of Admission January 22, 2017 at 1:53 am I consulted on this patient on 01/22/17 17:28 Attending Physician Braydon Oakley MD Admitting Physician Anders Fernandes DO Consult Allergies and Home Medications Allergies Coded Allergies: ciprofloxacin (Unverified Allergy, Unknown, 12/20/15) ciprofloxacin HCl (Unverified Allergy, Unknown, 12/20/15) duloxetine (Verified Allergy, Unknown, 12/20/15) Home Medications Acetaminophen 500 Mg Tablet, 500-1,000 MG PO Q6H PRN for PAIN-MILD, (Reported) ALTERNATE WITH ADVIL Cyanocobalamin (Vitamin B-12) 2,500 Mcg Tab.chew, 2,500 MCG PO DAILY, (Reported) Ibuprofen 200 Mg Tablet, 400-600 MG PO Q6H PRN for PAIN-MILD, (Reported) TAKES 2-3 (200MG) TABLETS Past Redxkcc-Bcnbaw-Clxbnv Hx Patient Social History Alcohol Use: Denies Use Recreational Drug Use: No Smoking Status: Current Everyday Smoker Type Used: Cigarettes 2nd Hand Smoke Exposure: Yes Physical Abuse Screen: No Sexual Abuse: No Recent Foreign Travel: No Contact w/other who traveled: No Recent Hopitalizations: No Recent Infectious Disease Expo: No Immunizations Up To Date Tetanus Booster (TDap): Less than 5yrs Date of Pneumonia Vaccine: Sep 15, 2009 Date of Influenza Vaccine: Jul 11, 2016 Seasonal Allergies Seasonal Allergies: No Surgeries HX Surgeries: Yes (LT BREAST BX AND MULTIPLE LT BREAST DEBRIDEMENTS, HERNIA SX x6, C/S x4) Surgeries: Abdominal (enterocutaneous fistula. Partial small bowel resection) , Breast, Section, Gallbladder, 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 Respiratory Hx Respiratory Disorders: Yes Cardiovascular Hx Cardiovascular Disorders: Yes (MITRAL VALVE PROLAPSE) Cardiac Disorders: Heart Murmur Neurological Hx Neurological Disorders: Yes Neurological Disorders: Headaches /Migraines 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 System Hx 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 Disorders: No Sexually Transmitted Disease: No HIV/AIDS: No Female 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 Disorders: Endometriosis Genitourinary Hx Genitourinary Disorders: Yes (HX OF URINARY TRACT INFECTIONS) Genitourinary Disorders: UTI-Chronic Gastrointestinal Hx Gastrointestinal Disorders: Yes (UMBILICAL & INCISIONAL HERNIA, GASTRITIS) Gastrointestinal Disorders: Abdominal Hernia Musculoskeletal Hx Musculoskeletal Disorders: Yes Musculoskeletal Disorders: Degenerate Disk Disease, Scoliosis Endocrine Hx Endocrine Disorders: No HEENT HX ENT Disorders: No Loss of Vision: Denies Hearing Impairment: Denies Cancer Hx Cancer: No Psychosocial Hx Psychiatric Problems: Yes Behavioral Health Disorders: ADD/ADHD, Depression Integumentary HX Skin/Integumentary Disorder: Yes (CHRONIC BREAST INFECTIONS, ABDOMINAL WALL CELLULITIS) Skin/Integumentary Disorders: Psoriasis Blood Transfusions Hx Blood Disorders: No Adverse Reaction to a Blood Tr: No Family Medical History Significant Family History: Cancer, GI Disease Family Hx: Arthritis 19 MOTHER Asthma 19 MOTHER G8 BROTHER Cardiovascular disease 19 FATHER Colon cancer Deafness or hearing loss 19 MOTHER (grandfather) Diabetes mellitus 19 FATHER Drug abuse G8 BROTHER Gastroenteritis G8 SISTER (CROHNS) Headache disorder 19 MOTHER Hypertension 19 FATHER 19 MOTHER Myocardial infarction 19 FATHER Psychosocial problem 19 MOTHER Respiratory disorder 19 FATHER Constitutional: no symptoms reported EENTM: no symptoms reported Respiratory: no symptoms reported Cardiovascular: no symptoms reported Gastrointestinal: abdominal pain (LLQ) Genitourinary: no symptoms reported Musculoskeletal: no symptoms reported Skin: no symptoms reported Psychiatric/Neurological: Anxiety, Emotional Problems Physical Exam Vital Signs Vital Sign - Last 12Hours 01/21/17 23:08 Temp 98.8 Pulse 121 Resp 24 B/P (MAP) 133/102 Pulse Ox 97 O2 Delivery Room Air Capillary Refill : Less Than 3 Seconds General Appearance: Anxious HEENT: Normal ENT Inspection Neck: Normal Inspection Respiratory: Lungs Clear Cardiovascular: Regular Rate, Rhythm Gastrointestinal: Non Tender, Soft Neurologic/Psychiatric: Alert, Oriented x3 Comments Mild erythema along the central aspect of the midline scar. No drainage Assessment/Plan Assessment and Plan Cellulitis of abdominal wall Problems: Clinical Quality Measures DVT/VTE Risk/Contraindication: Risk Factor Score Per Nursin RFS Level Per Nursing on Admit: 4+=Very High BRAYDON OAKLEY MD January 22, 2017 5:30 pm
[2017-01-22] MEDS ORDERED: IBUPROFEN 600 MG (MOTRIN) TAB PO SCH (18:00)
[2017-01-22] MEDS ORDERED: IBUPROFEN 600 MG (MOTRIN) TAB PO PRN (18:30)
[2017-01-22] MEDS ORDERED: HYDROcodone/APAP 5 MG/325 MG (LORTAB) TAB PO PRN (18:30)
[2017-01-22] MEDS ORDERED: CATHETER FLUSH 10 ML SYR IV PRN (18:45)
[2017-01-22] MEDS: CATHETER FLUSH 10 ML SYR IV SCH (22:00)
[2017-01-23] VITALS: BP 109/65
[2017-01-23] MEDS: VANCOMYCIN 1250 MG/NS 250 ML IVPB IV SCH ×2 (01:38)
[2017-01-23 04:00] VITALS: BP 94/55
[2017-01-23] MEDS: CATHETER FLUSH 10 ML SYR IV SCH (05:07)
[2017-01-23] MEDS: PIPERACILLIN/TAZOBACTAM 4.5 GM/NS100 ML IVPB IV SCH ×2 (05:07)
[2017-01-23 08:10] VITALS: BP 97/52
[2017-01-23] MEDS ORDERED: TROUGH ORDER-PHARMACY XX NR (10:00)
--- NOTE | 2017-01-24 11:38 | Physician Query ---
PQ-Conflicting Diagnosis Admission/Discharge Admission Date: January 22, 2017 at 01:53 Discharge Date: January 23, 2017 at 09:45 The medical record reflects the following clinical scenario: History/Risk Factors: Recent small bowel resection and removal of mesh. Clinical Findings: Pain at incision site. Mild erythema along the central aspect of the midline scar. WBC 12.0, T 98.8, Pulse 121, Resp 24 BP 133/102 Treatment: IV Vancomycin IV Piperacillin/Tazobactam/Sodium Chloride Question: Do you agree with the impression of the (Sepsis) per ED physician, Dr. Elmore. Please document a response below. PHYSICIAN RESPONSE Do you agree w/Consulting Dx?: No Please remember a lack of response to the above will prompt a phone page by [facility]/ coding staff. In responding to this query, please exercise your independent professional judgment. The purpose of this communication is to more accurately reflect the complexity of your patients condition. The fact that a question is asked does not imply that any particular answer is desired or expected. Thank you for your timely response to this clarification. Requestors name: Diana Darling [facility] Phone # ext [phone] or [phone] THIS PHYSICIAN QUERY FORM IS A PERMANENT PART OF THE MEDICAL RECORD DIANA DARLING January 24, 2017 11:38 BRAYDON OAKLEY MD January 25, 2017 22:38
== END 2017-01-23 09:45 | disposition home or self-care (01) | DRG 863 ==
LOC: EDUNIT# 22:47 → ER 22:49 → 4TH 01-22 01:53
PROVIDERS: ADMIT Surgery; ATTEND Surgery
DX: T81.4XXA Infection following a procedure, initial encounter (principal); L03.311 Cellulitis of abdominal wall; F17.210 Nicotine dependence, cigarettes, uncomplicated; I34.1 Nonrheumatic mitral (valve) prolapse; K21.9 Gastro-esophageal reflux disease without esophagitis; F41.9 Anxiety disorder, unspecified; Z90.49 Acquired absence of other specified parts of digestive tract
CPT/HCPCS: 36415; 74177; 80053; 81000; 83605; 85025; 87040; 87070; 87077; 87088; 87186; 87205; 94640; 96361; 96365; 96375

== ENCOUNTER 2017-01-28 22:30 | Emergency (ER) | payer OTHER ==
[~2017-01-28] VITALS: Ht 165.1 cm; Wt 90.7 kg
[~2017-01-28 22:30] MED LIST changes: +ACET-2267 PO; +CYAN250014 PO
[2017-01-29 01:05] LABS: MEAN CORPUSCULAR HEMOGLOBIN 31 PG (25-34); MEAN CORPUSCULAR VOLUME 94 FL (80-99); RED BLOOD COUNT 4.36 10^6/uL (4.35-5.85); WHITE BLOOD COUNT 11.1 10^3/uL (4.3-11.0)
[2017-01-29 01:06] LABS: BASOPHILS % (AUTO) 0 % (0-10); EOSINOPHILS # (AUTO) 0.3 10^3/uL (0.0-0.3); EOSINOPHILS % (AUTO) 3 % (0-10); LYMPHOCYTES # (AUTO) 2.8 X 10^3 (1.0-4.0); LYMPHOCYTES % (AUTO) 25 % (12-44); MEAN CORPUSCULAR HGB CONC 33 G/DL (32-36); MEAN PLATELET VOLUME 9.7 FL (7.4-10.4); MONOCYTES % (AUTO) 9 % (0-12); NEUTROPHILS # (AUTO) 6.9 X 10^3 (1.8-7.8); NEUTROPHILS % (AUTO) 62 % (42-75); PLATELET COUNT 257 10^3/uL (130-400); RED CELL DISTRIBUTION WIDTH 12.2 % (10.0-14.5)
[2017-01-29 01:07] LABS: ALANINE AMINOTRANSFERASE 20 U/L (0-55); ANION GAP 12 MMOL/L (5-14); ASPARTATE AMINO TRANSFERASE 15 U/L (5-34); BILIRUBIN,TOTAL 0.3 MG/DL (0.1-1.0); BLOOD UREA NITROGEN 12 MG/DL (7-18); BUN/CREATININE RATIO 13; CALCIUM 9.4 MG/DL (8.5-10.1); CARBON DIOXIDE 26 MMOL/L (21-32); CHLORIDE 105 MMOL/L (98-107); CREATININE SERUM 0.91 MG/DL (0.60-1.30); GFR ESTIMATED > 60; GLUCOSE 98 MG/DL (70-105); POTASSIUM 3.3 MMOL/L (3.6-5.0); SODIUM 143 MMOL/L (135-145); TOTAL PROTEIN 6.9 G/DL (6.4-8.2); hs C REACTIVE PROTEIN 2.42 MG/DL (0.00-0.50)
[2017-01-29] MEDS ORDERED: KETOROLAC 30 MG/ML VIAL IVP ONE (01:15)
[2017-01-29] MEDS ORDERED: DOXYCYCLINE 100 MG (VIBRAMYCIN) TABLET PO ONE (01:15)
[2017-01-29] MEDS ORDERED: DOXY100T2 PO (01:56)
--- NOTE | 2017-01-29 01:56 | ED Integumentary General ---
General Chief Complaint: Skin/Wound Problems Stated Complaint: ILLNESS Source: patient Exam Limitations: no limitations History of Present Illness Time seen by provider: 23:16 Initial Comments This 36-year-old woman presents to the emergency room with complaints of increasing abdominal wall pain and tenderness. 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 She was having difficulty sleeping due to the pain. She was unable to contact her surgeon this evening. She was recently admitted for treatment of abdominal wall cellulitis. Wound cultures were reviewed and demonstrated staph aureus. The old surgical wound on her abdomen at the center of the affected area is no longer draining but there is significant heat and erythema. There is also an area of fullness to the right of her surgical scar. Allergies and Home Medications Allergies Coded Allergies: ciprofloxacin (Unverified Allergy, Unknown, 12/20/15) ciprofloxacin HCl (Unverified Allergy, Unknown, 12/20/15) duloxetine (Verified Allergy, Unknown, 12/20/15) Home Medications Acetaminophen 500 Mg Tablet, 500-1,000 MG PO Q6H PRN for PAIN-MILD, (Reported) ALTERNATE WITH ADVIL Cyanocobalamin (Vitamin B-12) 2,500 Mcg Tab.chew, 2,500 MCG PO DAILY, (Reported) Doxycycline Hyclate 100 Mg Tablet, 100 MG PO BID, #20 Prescribed by: TYE ROGERS on 01/29/17 0156 Ibuprofen 200 Mg Tablet, 400-600 MG PO Q6H PRN for PAIN-MILD, (Reported) TAKES 2-3 (200MG) TABLETS Constitutional: no symptoms reported EENTM: no symptoms reported Respiratory: no symptoms reported Cardiovascular: no symptoms reported Gastrointestinal: see HPI Genitourinary: no symptoms reported : No Musculoskeletal: no symptoms reported Skin: see HPI Psychiatric/Neurological: No Symptoms Reported Endocrine: No Symptoms Reported Past Gnrtxvz-[id number]-Wjlqxp Hx Patient Social History Type Used: Cigarettes 2nd Hand Smoke Exposure: Yes Recent Foreign Travel: No Contact w/Someone Who Travel: No Recent Hopitalizations: No Immunizations Up To Date Tetanus Booster (TDap): Less than 5yrs Date of Pneumonia Vaccine: Sep 15, 2009 Date of Influenza Vaccine: Jul 11, 2016 Seasonal Allergies Seasonal Allergies: No Surgeries HX Surgeries: Yes (LT BREAST BX AND MULTIPLE LT BREAST DEBRIDEMENTS, HERNIA SX x6, C/S x4) Surgeries: Abdominal (repair of enterocutaneous fistula and removal of infected mesh), Breast, Section, Gallbladder, 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 Respiratory Hx Respiratory Disorders: Yes Respiratory Disorders: Pneumonia Cardiovascular Hx Cardiac Disorders: Yes (MITRAL VALVE PROLAPSE) Cardiac Disorders: Heart Murmur Neurological Hx Neurological Disorders: Yes Neurological Disorders: Headaches /Migraines 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 System Hx 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 Disorders: No Sexually Transmitted Disease: No HIV/AIDS: No Female 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 Disorders: Endometriosis [employer] History: 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 Genitourinary Hx Genitourinary Disorders: Yes (HX OF URINARY TRACT INFECTIONS) Genitourinary Disorders: UTI-Chronic Gastrointestinal Hx Gastrointestinal Disorders: Yes (UMBILICAL & INCISIONAL HERNIA, GASTRITIS) Gastrointestinal Disorders: Abdominal Hernia Musculoskeletal Hx Musculoskeletal Disorders: Yes Musculoskeletal Disorders: Degenerate Disk Disease, Scoliosis Endocrine Hx Endocrine Disorders: No HEENT HX ENT Disorders: No Loss of Vision: Denies Hearing Impairment: Denies Cancer Hx Cancer: No Psychosocial Hx Psychiatric Problems: Yes Behavioral Health Disorders: ADD/ADHD, Depression Integumentary HX Skin/Integumentary Disorder: Yes (CHRONIC BREAST INFECTIONS, ABDOMINAL WALL CELLULITIS) Skin/Integumentary Disorders: Psoriasis Blood Transfusions Hx Blood Disorders: No Adverse Reaction to a Blood Tr: No Family Medical History Significant Family History: Cancer, GI Disease Family Medial History: Arthritis 19 MOTHER Asthma 19 MOTHER G8 BROTHER Cardiovascular disease 19 FATHER Colon cancer Deafness or hearing loss 19 MOTHER (grandfather) Diabetes mellitus 19 FATHER Drug abuse G8 BROTHER Gastroenteritis G8 SISTER (CROHNS) Headache disorder 19 MOTHER Hypertension 19 FATHER 19 MOTHER Myocardial infarction 19 FATHER Psychosocial problem 19 MOTHER Respiratory disorder 19 FATHER Physical Exam Vital Signs Vital Sign - Last 12Hours 01/28/ 22:55 Temp 98.6 Pulse 97 Resp 20 B/P (MAP) 128/79 Pulse Ox 95 O2 Delivery Room Air Capillary Refill : General Appearance: WD/WN, no apparent distress HEENT: normal ENT inspection Neck: normal inspection Cardiovascular: regular rate, rhythm, no edema, no murmur Respiratory: lungs clear, normal breath sounds, no respiratory distress, no accessory muscle use Gastrointestinal: normal bowel sounds, soft, other (fullness to the right of the central abdominal incisional scar. No active draining. Warmth and patchy erythema surrounding the surgical scar) Extremities: normal inspection, no pedal edema Neurologic/Psychiatric: windows consultant II-XII nml as tested, no motor/sensory deficits, alert, normal mood/affect, oriented x 3, EOM palsy, depressed affect Skin: normal color, warm/dry, other (see above) Progress/Results/Core Measures Results/Orders Lab Results Laboratory Tests Test 01/28/17 23:23 Range/Units White Blood Count 11.1 H 4.3-11.0 10^3/uL Red Blood Count 4.36 4.35-5.85 10^6/uL Hemoglobin 13.5 11.5-16.0 G/DL Hematocrit 41 35-52 % Mean Corpuscular Volume 94 80-99 FL Mean Corpuscular Hemoglobin 31 25-34 PG Mean Corpuscular Hemoglobin Concent 33 32-36 G/DL Red Cell Distribution Width 12.2 10.0-14.5 % Platelet Count 257 130-400 10^3/uL Mean Platelet Volume 9.7 7.4-10.4 FL Neutrophils (%) (Auto) 62 42-75 % Lymphocytes (%) (Auto) 25 12-44 % Monocytes (%) (Auto) 9 0-12 % Eosinophils (%) (Auto) 3 0-10 % Basophils (%) (Auto) 0 0-10 % Neutrophils # (Auto) 6.9 1.8-7.8 X 10^3 Lymphocytes # (Auto) 2.8 1.0-4.0 X 10^3 Monocytes # (Auto) 1.0 0.0-1.0 X 10^3 Eosinophils # (Auto) 0.3 0.0-0.3 10^3/uL Basophils # (Auto) 0.0 0.0-0.1 10^3/uL Sodium Level 143 135-145 MMOL/L Potassium Level 3.3 L 3.6-5.0 MMOL/L Chloride Level 105 98-107 MMOL/L Carbon Dioxide Level 26 21-32 MMOL/L Anion Gap 12 5-14 MMOL/L Blood Urea Nitrogen 12 7-18 MG/DL Creatinine 0.91 0.60-1.30 MG/DL Estimat Glomerular Filtration Rate > 60 BUN/Creatinine Ratio 13 Glucose Level 98 70-105 MG/DL Calcium Level 9.4 8.5-10.1 MG/DL Total Bilirubin 0.3 0.1-1.0 MG/DL Aspartate Amino Transf (AST/SGOT) 15 5-34 U/L Alanine Aminotransferase (ALT/SGPT) 20 0-55 U/L Alkaline Phosphatase 70 40-136 U/L C-Reactive Protein High Sensitivity 2.42 H 0.00-0.50 MG/DL Total Protein 6.9 6.4-8.2 G/DL Albumin 4.0 3.2-4.5 G/DL My Orders Orders - TYE ADKINS MD Cbc With Automated Diff (01/28/17 23:23) Comprehensive Metabolic Panel (01/28/17 23:23) Hs C Reactive Protein (01/28/17 23:23) Ketorolac Injection (Toradol Injection) (01/29/17 01:15) Doxycycline Hyclate Tablet (Vibramycin T (01/29/17 01:15) Rx-Hydrocodone/Apap 5-325 Mg (Rx-Vicodin (01/29/17 02:00) Medications Given in ED Current Medications Medications Dose Ordered Sig/Sheila Route Start Time Stop Time Status Last Admin Dose Admin Acetaminophen/ Hydrocodone Bitart 1 ea Q4H PRN PO 01/29/17 02:00 01/29/17 04:06 DC 01/29/17 02:04 1 EA Doxycycline Hyclate 100 mg ONCE ONCE PO 01/29/17 01:15 01/29/17 01:16 DC 01/29/17 01:23 100 MG Ketorolac Tromethamine 30 mg ONCE ONCE IVP 01/29/17 01:15 01/29/17 01:16 DC 01/29/17 01:23 30 MG Vital Signs/I&O Vital Sign - Last 12Hours 01/28/17 01/29/17 22:55 02:04 Temp 98.6 Pulse 97 101 Resp 20 18 B/P (MAP) 128/79 Pulse Ox 95 99 O2 Delivery Room Air Progress Note : Progress Note Labs were reviewed. Cultures from prior admission were reviewed. She was given Toradol for pain management. A take-home packet of hydrocodone was dispensed. Margins of the cellulitis were marked. Bedside ultrasound was performed by this provider. There was a small pocket of approximately 1 cm in diameter about 1 cm beneath the skin surface in the most fluctuant area. This appeared to be simple fluid and could relate to extension of seroma versus abscess. I elected to defer further management to Dr. Oakley. Patient was started on doxycycline for treatment of cellulitis based on prior culture. Departure Impression Impression: Primary Impression: Cellulitis of abdominal wall Disposition: HOME, SELF-CARE Condition: Improved Departure-Patient Inst. Decision time for Depature: 01:45 Referrals: FABI ABDALLA DO (PCP/Family) Primary Care Physician Patient Instructions: Cellulitis (Skin Infection), Adult (DC) Add. Discharge Instructions: Complete the doxycycline as prescribed. Follow-up with Dr. Oakley as soon as possible. Call his office early in the morning. Return to the ER if symptoms worsen. You may use ibuprofen up to 800 mg every 8 hours as needed for pain. Use hydrocodone for pain not controlled by ibuprofen. All discharge instructions reviewed with patient and/or family. Voiced understanding. Scripts Doxycycline Hyclate (Doxycycline Hyclate) 100 Mg Tablet 100 MG PO BID, #20 TAB Prov: TYE ADKINS MD 01/29/17 Work/School Note: Work Release Form Date Seen in the Emergency Department: January 29, 2017 Return to Work: January 30, 2017 Copy Copies To 1: BRAYDON OAKLEY MD, JOSHUA T MD January 29, 2017 01:56
[2017-01-29] MEDS ORDERED: RX-HYDROCODONE/APAP 5/325 MG #4 TAB PK PO PRN (02:00)
[2017-01-29 02:04] VITALS: BP 112/82
== END 2017-01-29 02:04 | disposition home or self-care (01) ==
LOC: EDUNIT# 22:30 → ER 01-29 00:39
DX: L03.311 Cellulitis of abdominal wall (principal)
CPT/HCPCS: 36415; 80053; 85025; 86141; 96374

== ENCOUNTER → 2017-04-03 | Outpatient (CLI) | payer OTHER ==
[~2017-04-03] MED LIST changes: +CATHETER FLUSH 10 ML SYR IV PRN; +DOXY100T2 PO; +HYDR-3820 PO; +IOHEXOL 350 MG/ML 100 ML (OMNIPAQUE 350) VIAL IV ONE; +NS 100 ML (IVPB) BAG IV ONE
--- NOTE | 2017-04-03 09:47 | Diagnostic Imaging Report ---
PROCEDURE: CT abdomen with contrast only. TECHNIQUE: Multiple contiguous axial images were obtained through the abdomen after the administration of intravenous contrast. INDICATION: History of abdominal surgery with bowel resection and fistula repair. Mesh removal. Persistent abdominal pain with leakage from wound site. COMPARISON: 01/22/2017. FINDINGS: Included views of the lung bases are clear. Area of stranding within the subcutaneous fat of the anterior abdomen is again identified, midline. Overall appearance is improved. Previous described small fluid collection is no longer identified. There is no soft tissue emphysema. No unexpected radiopaque foreign bodies are seen. Included small bowel loops are nondistended. Appendix is only partially included on this exam. Portions of the included appendix are within normal limits. There is no loculated fluid collection, free fluid, or free air within the abdomen. The kidneys, adrenal glands, spleen, pancreas, and liver have a normal CT appearance. No abnormal mesenteric or retroperitoneal adenopathy is seen. Bony structures show no acute abnormalities. IMPRESSION: 1. Persistent induration of the subcutaneous fat of the anterior abdomen, midline. Previous described focal fluid collection has since resolved. 2. No new acute abnormalities or other adverse change is seen within the abdomen. Dictated by: Dictated on workstation # [id number]
== END ==
LOC: RAD 08:03
PROVIDERS: ATTEND Surgery
DX: R10.9 Unspecified abdominal pain (principal); Z98.890 Other specified postprocedural states
CPT/HCPCS: 74160

== ENCOUNTER 2017-05-11 23:33 | Inpatient (IN) | payer OTHER ==
[~2017-05-11] VITALS: Ht 165.1 cm; Wt 99.5 kg
[~2017-05-11 23:33] MED LIST changes: -CATHETER FLUSH 10 ML SYR IV PRN; -HYDR-3820 PO; -IOHEXOL 350 MG/ML 100 ML (OMNIPAQUE 350) VIAL IV ONE; -NS 100 ML (IVPB) BAG IV ONE
[2017-05-12] MEDS ORDERED: NS IV 1000 ML 1,000 ML IV ONE (00:41)
[2017-05-12] MEDS ORDERED: ONDANSETRON 4 MG/2 ML (SDV) Z0FRAN IVP ONE (00:45)
--- NOTE | 2017-05-12 00:45 | ED Abdominal Pain ---
General Chief Complaint: Abdominal/GI Problems Stated Complaint: AB PAIN CRAMPING HEART FLUTTERS WEAK Nursing Triage Note: c/o nausea with abdominal skin infection. patient reports fever and not being able to eat much Sepsis Screen: No Definite Risk Source of Information: Patient, Other Exam Limitations: No Limitations History of Present Illness Time Seen By Provider: 00:36 Initial Comments Patient presents to ER by private conveyance with chief complaint of midline umbilical abdominal pain and drainage from a draining fistula. She has had a history of colon resection by a Dr. Oakley, General Surgery most recently in October,. Since then she has developed a draining fistula tract and then put on a couple courses of antibiotics. She was last seen about a month ago by a surgeon in time they discussed doing otherwise antibiotics or a cleanout. She is not having a surgery scheduled at this time. 2 weeks ago her tract started getting larger and draining from 3 different sites in the middle of her abdomen. She has having fevers this morning of 102 agrees Fahrenheit MAXIMUM TEMPERATURE. She is having some nausea but very little vomiting She is also very anorexic. She is had a bowel movement yesterday that was very little output which she attributes to the fact she has not been eating much because she has poor appetite. She is very frustrated with her course. She smokes a pack of cigarettes per day. She is not diabetic. She is not presently on antibiotic's. Allergies and Home Medications Allergies Coded Allergies: ciprofloxacin (Unverified Allergy, Unknown, 12/20/15) ciprofloxacin HCl (Unverified Allergy, Unknown, 12/20/15) duloxetine (Verified Allergy, Unknown, 12/20/15) Review of Systems Constitutional: chills, diaphoresis, fever, malaise EENTM: No Eye Pain, No Ear Pain Respiratory: Denies Cough, Denies Shortness of Air Cardiovascular: Denies Chest Pain, Denies Irregular Heart Rate, Denies Lightheadedness Gastrointestinal: See HPI, Abdomen Distended, Abdominal Pain, Denies Constipated, Denies Diarrhea, Nausea, Vomiting Genitourinary: Denies Burning, Denies Discharge, Denies Drainage Musculoskeletal: No back pain, No joint pain Skin: No dryness, No pruritus, No rash Psychiatric/Neurological: Denies Headache, Denies Numbness, Denies Paresthesia Past Bodqdxi-Uhfysu-Xswxbc Hx Patient Social History Alcohol Use: Denies Use Recreational Drug Use: No Smoking Status: Current Everyday Smoker Type Used: Cigarettes 2nd Hand Smoke Exposure: Yes Recent Foreign Travel: No Contact w/Someone Who Travel: No Recent Infectious Disease Expo: No Recent Hopitalizations: No Immunizations Up To Date Tetanus Booster (TDap): Less than 5yrs Date of Pneumonia Vaccine: Sep 15, 2009 Date of Influenza Vaccine: Jul 11, 2016 Seasonal Allergies Seasonal Allergies: No Surgeries History of Surgeries: Yes (LT BREAST BX AND MULTIPLE LT BREAST DEBRIDEMENTS, HERNIA SX x6, C/S x4) Surgeries: Abdominal, Breast, Section, Gallbladder, 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 Respiratory History of Respiratory Disorde: Yes Respiratory Disorders: Pneumonia Currently Using CPAP: No Currently Using BIPAP: No Cardiovascular History of Cardiac Disorders: Yes (MITRAL VALVE PROLAPSE) Cardiac Disorders: Heart Murmur Neurological History of Neurological Disord: Yes Neurological Disorders: Headaches /Migraines 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 System Hx 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 Disorders: No Sexually Transmitted Disease: No HIV/AIDS: No Female 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 Disorders: 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 Genitourinary History of Genitourinary Disor: No Genitourinary Disorders: UTI-Chronic Gastrointestinal History of Gastrointestinal Di: Yes (UMBILICAL & INCISIONAL HERNIA, GASTRITIS) Gastrointestinal Disorders: Abdominal Hernia Musculoskeletal History of Musculoskeletal Dis: Yes Musculoskeletal Disorders: Degenerate Disk Disease, Scoliosis Endocrine History of Endocrine Disorders: No HEENT Loss of Vision: Denies Hearing Impairment: Denies Cancer History of Cancer: No Psychosocial History of Psychiatric Problem: Yes Behavioral Health Disorders: ADD/ADHD, Depression Integumentary History of Skin or Integumenta: Yes (CHRONIC BREAST INFECTIONS, ABDOMINAL WALL CELLULITIS) Skin/Integumentary Disorders: Psoriasis Blood Transfusions History of Blood Disorders: No Adverse Reaction to a Blood Tr: No Family Medical History Significant Family History: Cancer, GI Disease Family Medial History: Arthritis 19 MOTHER Asthma 19 MOTHER G8 BROTHER Cardiovascular disease 19 FATHER Colon cancer Deafness or hearing loss 19 MOTHER (grandfather) Diabetes mellitus 19 FATHER Drug abuse G8 BROTHER Gastroenteritis G8 SISTER (CROHNS) Headache disorder 19 MOTHER Hypertension 19 FATHER 19 MOTHER Myocardial infarction 19 FATHER Psychosocial problem 19 MOTHER Respiratory disorder 19 FATHER Physical Exam Vital Signs VS - Last 72 Hours, by Label 05/12/17 00:07 Temp 100.5 Pulse 139 Resp 18 B/P (MAP) 123/74 Pulse Ox 99 Capillary Refill : Less Than 3 Seconds General Appearance: WD/WN, mild distress HEENT: PERRL/EOMI, pharynx normal Neck: supple, normal inspection Respiratory: lungs clear, normal breath sounds, no respiratory distress Cardiovascular: normal peripheral pulses, regular rate, rhythm, no edema Peripheral Pulses: 2+ Dorsalis Pedis (R), 2+ Left Dors-Pedis (L) Gastrointestinal: normal bowel sounds, soft, no organomegaly, distended, guarding, tenderness, other (no mesenteric signs. There is a what appears to be possible fistula with a yellow purulent looking drainage without malodor to the right side of the umbilicus and the scar line from the previous surgeries. Quite tender to palpation around this area and mildly erythematous and indurated with an area of fluctuance directly under.) Extremities: non-tender, normal inspection, no pedal edema, normal capillary refill Neurologic/Psychiatric: alert, oriented x 3 Skin: normal color, warm/dry Lymphatic: no adenopathy Focused Exam Evaluation Lactate Level Laboratory Tests 05/12/17 00:20: Lactic Acid Level 0.70 Lactic Acid Level Laboratory Tests Test 05/12/17 00:20 Lactic Acid Level 0.70 MMOL/L (0.50-2.00) Progress/Results/Core Measures Results/Orders Lab Results Laboratory Tests Test 05/12/17 00:20 Range/Units White Blood Count 14.7 H 4.3-11.0 10^3/uL Red Blood Count 4.43 4.35-5.85 10^6/uL Hemoglobin 13.5 11.5-16.0 G/DL Hematocrit 41 35-52 % Mean Corpuscular Volume 92 80-99 FL Mean Corpuscular Hemoglobin 31 25-34 PG Mean Corpuscular Hemoglobin Concent 33 32-36 G/DL Red Cell Distribution Width 12.0 10.0-14.5 % Platelet Count 226 130-400 10^3/uL Mean Platelet Volume 10.0 7.4-10.4 FL Neutrophils (%) (Auto) 77 H 42-75 % Lymphocytes (%) (Auto) 13 12-44 % Monocytes (%) (Auto) 9 0-12 % Eosinophils (%) (Auto) 1 0-10 % Basophils (%) (Auto) 0 0-10 % Neutrophils # (Auto) 11.3 H 1.8-7.8 X 10^3 Lymphocytes # (Auto) 2.0 1.0-4.0 X 10^3 Monocytes # (Auto) 1.3 H 0.0-1.0 X 10^3 Eosinophils # (Auto) 0.1 0.0-0.3 10^3/uL Basophils # (Auto) 0.0 0.0-0.1 10^3/uL Sodium Level 141 135-145 MMOL/L Potassium Level 3.6 3.6-5.0 MMOL/L Chloride Level 106 98-107 MMOL/L Carbon Dioxide Level 22 21-32 MMOL/L Anion Gap 13 5-14 MMOL/L Blood Urea Nitrogen 12 7-18 MG/DL Creatinine 0.86 0.60-1.30 MG/DL Estimat Glomerular Filtration Rate > 60 BUN/Creatinine Ratio 14 Glucose Level 109 H 70-105 MG/DL Lactic Acid Level 0.70 0.50-2.00 MMOL/L Calcium Level 9.4 8.5-10.1 MG/DL Phosphorus Level 1.7 L 2.3-4.7 MG/DL Magnesium Level 1.9 1.8-2.4 MG/DL Total Bilirubin 0.4 0.1-1.0 MG/DL Aspartate Amino Transf (AST/SGOT) 16 5-34 U/L Alanine Aminotransferase (ALT/SGPT) 19 0-55 U/L Alkaline Phosphatase 90 40-136 U/L Total Protein 7.5 6.4-8.2 GM/DL Albumin 4.0 3.2-4.5 GM/DL Lipase 12 8-78 U/L My Orders Orders - HAMMAD BEARD Cbc With Automated Diff (05/12/17 00:41) Comprehensive Metabolic Panel (05/12/17 00:41) Lactic Acid Analyzer (05/12/17 00:41) Lipase (05/12/17 00:41) Magnesium (05/12/17 00:41) Ua Culture If Indicated (05/12/17 00:41) Phosphorus (05/12/17 00:41) Ct Abdomen/Pelvis W (05/12/17 00:41) Saline Lock/Iv-Start (05/12/17 00:41) Ns Iv 1000 Ml (Sodium Chloride 0.9%) (05/12/17 00:41) Ondansetron Injection (Zofran Injectio (05/12/17 00:45) Iohexol Injection (Omnipaque 350 Mg/Ml 1 (05/12/17 01:15) Ns (Ivpb) (Sodium Chloride 0.9% Ivpb Bag (05/12/17 01:15) Medications Given in ED Current Medications Medications Dose Ordered Sig/Sheila Route Start Time Stop Time Status Last Admin Dose Admin Iohexol 100 ml ONCE ONCE IV 05/12/17 01:15 05/12/17 02:00 DC 05/12/17 01:12 100 ML Ondansetron HCl 4 mg ONCE ONCE IVP 05/12/17 00:45 05/12/17 00:46 DC 05/12/17 01:23 4 MG Sodium Chloride 80 ml ONCE ONCE IV 05/12/17 01:15 05/12/17 02:00 DC 05/12/17 01:12 80 ML Sodium Chloride 1,000 ml @ 0 mls/hr Q0M ONCE IV 05/12/17 00:41 05/12/17 00:44 DC 05/12/17 01:23 0 MLS/HR Vital Signs/I&O Vital Sign - Last 12Hours 05/12/17 00:07 Temp 100.5 Pulse 139 Resp 18 B/P (MAP) 123/74 Pulse Ox 99 Blood Pressure Mean: 90 Diagnostic Imaging Diagonstic Imaging: CT Plain Films/CT/US/NM/MRI: abdomen (with contrast), pelvis Comments Postsurgical changes noted within the anterior abdominal wall where there is a small fluid collection in subcutaneous space measuring 3.3 x 2.5 cm. Findings may represent resolving hematoma, seroma or abscess. Ventral wall hernia containing nonobstructive small bowel. There is a mild bowel wall thickening of the proximal small bowel loops which may represent nonspecific enteritis. Incidentally the lower thorax is unremarkable, gallbladder surgically absent, the liver spleen pancreas and adrenal glands are unremarkable. The kidney ureters and urinary bladder are unremarkable. The surgical changes are seen in the small bowel. The appendix is unremarkable. Noninflamed clinic diverticulosis. Prominent right ileocolic lymph nodes. No acute osseous abnormalities noted. Reviewed: Reviewed Night Hawk Study, Reviewed by Me Consults Consults : Consulting Physician: LOTUS LEWIS DO Consults Notes Discussed the case with the surgeon and he recommends we go ahead and put the patient in under Dr. Oakley name but he will cover until Liya comes on duty tomorrow. He will call Dr. Oakley in the morning and passed the case over. He recommends no antibiotics but fluids are okay. Make her nothing by mouth at this time. Departure Communication Time/Spoke to Admitting Phy: 02:[address] Lewis who will take care of the patient until he transitions care to Dr. Oakley who will be admitting physician tomorrow morning. Dr. Oakley is education program specialist tomorrow morning. When the case and he wants no antibiotic is okay with IV fluids. Nothing by mouth as of now. She's not had anything to eat or drink since prior to arrival. Impression Impression: Primary Impression: Abscess of abdominal wall Disposition: ADMITTED INPATIENT Condition: Stable Admissions Decision to Admit Reason: Admit from ER (General) Decision to Admit/Date: May 12, 2017 Time/Decision to Admit Time: 02:18 Departure-Patient Inst. Referrals: FABI ABDALLA DO (PCP/Family) Primary Care Physician Copy Copies To 1: FABI ABDALLA DO Copies To 2: BRAYDON OAKLEY MD, TITUS J May 12, 2017 00:45
[2017-05-12 00:51] LABS: BASOPHILS % (AUTO) 0 % (0-10); EOSINOPHILS # (AUTO) 0.1 10^3/uL (0.0-0.3); EOSINOPHILS % (AUTO) 1 % (0-10); LYMPHOCYTES % (AUTO) 13 % (12-44); MEAN CORPUSCULAR HEMOGLOBIN 31 PG (25-34); MEAN CORPUSCULAR HGB CONC 33 G/DL (32-36); MEAN CORPUSCULAR VOLUME 92 FL (80-99); MONOCYTES # (AUTO) 1.3 X 10^3 (0.0-1.0); MONOCYTES % (AUTO) 9 % (0-12); NEUTROPHILS # (AUTO) 11.3 X 10^3 (1.8-7.8); NEUTROPHILS % (AUTO) 77 % (42-75); PLATELET COUNT 226 10^3/uL (130-400); RED BLOOD COUNT 4.43 10^6/uL (4.35-5.85); WHITE BLOOD COUNT 14.7 10^3/uL (4.3-11.0)
[2017-05-12 01:02] LABS: ALANINE AMINOTRANSFERASE 19 U/L (0-55); ANION GAP 13 MMOL/L (5-14); ASPARTATE AMINO TRANSFERASE 16 U/L (5-34); BILIRUBIN,TOTAL 0.4 MG/DL (0.1-1.0); BLOOD UREA NITROGEN 12 MG/DL (7-18); BUN/CREATININE RATIO 14; CALCIUM 9.4 MG/DL (8.5-10.1); CARBON DIOXIDE 22 MMOL/L (21-32); CHLORIDE 106 MMOL/L (98-107); CREATININE SERUM 0.86 MG/DL (0.60-1.30); GFR ESTIMATED > 60; GLUCOSE 109 MG/DL (70-105); LIPASE 12 U/L (8-78); MAGNESIUM 1.9 MG/DL (1.8-2.4); PHOSPHORUS 1.7 MG/DL (2.3-4.7); POTASSIUM 3.6 MMOL/L (3.6-5.0); SODIUM 141 MMOL/L (135-145); TOTAL PROTEIN 7.5 GM/DL (6.4-8.2)
[2017-05-12] MEDS ORDERED: NS 100 ML (IVPB) BAG IV ONE (01:15)
[2017-05-12] MEDS ORDERED: IOHEXOL 350 MG/ML 100 ML (OMNIPAQUE 350) VIAL IV ONE (01:15)
[2017-05-12] MEDS ORDERED: POTASSIUM PHOSPHATE INJ 15 MM in NS (IVPB) 250 ML IV ONE (02:15)
[2017-05-12 02:18] LABS: BILIRUBIN,URINE NEGATIVE (NEGATIVE); KETONES,URINE NEGATIVE (NEGATIVE); LEUKOCYTE ESTERASE ,URINE 1+ (NEGATIVE); NITRITE,URINE NEGATIVE (NEGATIVE); PH,URINE 8 (5-9); PROTEIN,URINE 1+ (NEGATIVE); UROBILINOGEN,URINE NORMAL (NORMAL)
[2017-05-12 02:25] LABS: WBC,URINE RARE /HPF
[2017-05-12 02:50] VITALS: BP 122/59
[2017-05-12] MEDS ORDERED: NS IV 1000 ML 1,000 ML IV SCH (03:15)
[2017-05-12] MEDS: 1/2 NS IV SOLUTION 1,000 ML IV SCH ×3 (03:40→20:19)
[2017-05-12] MEDS: fentaNYL INJECTION 100 MCG/2 ML AMP IV PRN ×6 (03:40→21:13)
[2017-05-12 05:48] VITALS: BP 99/54
[2017-05-12 06:15] LABS: BASOPHILS % (AUTO) 0 % (0-10); EOSINOPHILS # (AUTO) 0.1 10^3/uL (0.0-0.3); EOSINOPHILS % (AUTO) 0 % (0-10); LYMPHOCYTES % (AUTO) 15 % (12-44); MEAN CORPUSCULAR HEMOGLOBIN 31 PG (25-34); MEAN CORPUSCULAR HGB CONC 33 G/DL (32-36); MEAN CORPUSCULAR VOLUME 92 FL (80-99); MEAN PLATELET VOLUME 10.3 FL (7.4-10.4); MONOCYTES # (AUTO) 1.3 X 10^3 (0.0-1.0); MONOCYTES % (AUTO) 10 % (0-12); NEUTROPHILS # (AUTO) 10.2 X 10^3 (1.8-7.8); NEUTROPHILS % (AUTO) 75 % (42-75); PLATELET COUNT 201 10^3/uL (130-400); RED BLOOD COUNT 4.04 10^6/uL (4.35-5.85); WHITE BLOOD COUNT 13.6 10^3/uL (4.3-11.0)
[2017-05-12 06:31] LABS: ANION GAP 10 MMOL/L (5-14); BLOOD UREA NITROGEN 9 MG/DL (7-18); BUN/CREATININE RATIO 12; CALCIUM 8.5 MG/DL (8.5-10.1); CARBON DIOXIDE 21 MMOL/L (21-32); CHLORIDE 109 MMOL/L (98-107); CREATININE SERUM 0.76 MG/DL (0.60-1.30); GFR ESTIMATED > 60; GLUCOSE 91 MG/DL (70-105); PHOSPHORUS 2.2 MG/DL (2.3-4.7); POTASSIUM 3.8 MMOL/L (3.6-5.0); SODIUM 140 MMOL/L (135-145)
[2017-05-12] MEDS: ONDANSETRON 4 MG/2 ML (SDV) Z0FRAN IV PRN ×2 (07:53→16:27)
--- NOTE | 2017-05-12 07:57 | History & Physicial ---
History of Present Illness History of Present Illness Reason for visit/HPI patient came to the emergency room yesterday with a temperature of 102. Patient complaining of abdominal pain and cramping and heart fluttering. 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 Patient had surgery plan. Patient states she's been miserable for 2 weeks and not able to eat much. Patient states she has leakage from 3 spots by the umbilicus on her abdomen. Patient admits to headache and dizziness. Patient has history of mitral valve and heart murmur. Surgeries. 4 C-sections, 6 hernia repairs, and bowel resection for mesh in bowel. Date of Admission May 12, 2017 at 02:15 Time Seen by Provider: 07:45 I consulted on this patient on 05/12/17 07:51 Attending Physician Mati Perez MD Admitting Physician Anders Abdalla DO Consult LOTUS LEWIS DO Allergies and Home Medications Allergies Coded Allergies: ciprofloxacin (Unverified Allergy, Unknown, 12/20/15) ciprofloxacin HCl (Unverified Allergy, Unknown, 12/20/15) duloxetine (Verified Allergy, Unknown, 12/20/15) Past Vmblmkm-Zdffaw-Dwadlk Hx Patient Social History Employed/Student: employed Alcohol Use: Denies Use Recreational Drug Use: No Smoking Status: Current Everyday Smoker Type Used: Cigarettes 2nd Hand Smoke Exposure: Yes Physical Abuse Screen: No Sexual Abuse: No Recent Foreign Travel: No Contact w/other who traveled: No Recent Hopitalizations: No Recent Infectious Disease Expo: No Immunizations Up To Date Tetanus Booster (TDap): Less than 5yrs Date of Pneumonia Vaccine: Sep 15, 2009 Date of Influenza Vaccine: Jul 11, 2016 Seasonal Allergies Seasonal Allergies: No Surgeries Yes (LT BREAST BX AND MULTIPLE LT BREAST DEBRIDEMENTS, HERNIA SX x6, C/S x4) Abdominal, Breast, Section, Gallbladder, 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 Respiratory Yes Currently Using CPAP: No Currently Using BIPAP: No Cardiovascular Yes (MITRAL VALVE PROLAPSE) Heart Murmur Neurological Yes Headaches /Migraines 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 System Hx 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 Disorders: No Sexually Transmitted Disease: No HIV/AIDS: No Female 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 Disorders: 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 Genitourinary No UTI-Chronic Gastrointestinal Yes (UMBILICAL & INCISIONAL HERNIA, GASTRITIS) Abdominal Hernia Musculoskeletal Yes Degenerate Disk Disease, Scoliosis Endocrine History of Endocrine Disorders: No HEENT Loss of Vision: Denies Hearing Impairment: Denies Cancer No Psychosocial History of Psychiatric Problem: Yes Behavioral Health Disorders: ADD/ADHD, Depression Integumentary History of Skin or Integumenta: Yes (CHRONIC BREAST INFECTIONS, ABDOMINAL WALL CELLULITIS) Skin/Integumentary Disorders: Psoriasis Blood Transfusions History of Blood Disorders: No Adverse Reaction to a Blood Tr: No Family Medical History Significant Family History: Cancer, GI Disease Family Hx: Arthritis 19 MOTHER Asthma 19 MOTHER G8 BROTHER Cardiovascular disease 19 FATHER Colon cancer Deafness or hearing loss 19 MOTHER (grandfather) Diabetes mellitus 19 FATHER Drug abuse G8 BROTHER Gastroenteritis G8 SISTER (CROHNS) Headache disorder 19 MOTHER Hypertension 19 FATHER 19 MOTHER Myocardial infarction 19 FATHER Psychosocial problem 19 MOTHER Respiratory disorder 19 FATHER Constitutional: fever, weakness EENTM: no symptoms reported Respiratory: no symptoms reported Cardiovascular: palpitations Gastrointestinal: LLQ, abdominal pain, other (pain by umbilicus) Psychiatric/Neurological: No Symptoms Reported Physical Exam Vital Signs Vital Sign - Last 12Hours 05/12/17 05/12/17 00:07 02:45 Temp 100.5 Pulse 139 Resp 18 B/P (MAP) 123/74 Pulse Ox 99 O2 Delivery Room Air Capillary Refill : Less Than 3 Seconds General Appearance: No Apparent Distress, WD/WN Eyes: Bilateral Eye Normal Inspection HEENT: Normal ENT Inspection Neck: Full Range of Motion, Normal Inspection Respiratory: Chest Non Tender, No Accessory Muscle Use, No Respiratory Distress Cardiovascular: Regular Rate, Rhythm Gastrointestinal: Soft, Other (drainage around the umbilicus) Assessment/Plan Assessment and Plan abdominal fistula. Abdominal abscess around the umbilicus. Tachycardia. Febrile. Leukocytosis Problems: Clinical Quality Measures DVT/VTE Risk/Contraindication: Risk Factor Score Per Nursin RFS Level Per Nursing on Admit: 3=High ANDERS ABDALLA DO May 12, 2017 07:57
[2017-05-12] MEDS ORDERED: ACETAMINOPHEN 500 MG TAB (TYLENOL) PO PRN (08:00)
[2017-05-12 08:05] VITALS: BP 116/68
[2017-05-12] MEDS: ACETAMINOPHEN 500 MG TAB (TYLENOL) PO PRN ×2 (08:21→12:19)
--- NOTE | 2017-05-12 09:03 | Diagnostic Imaging Report ---
INDICATION: Abdominal pain, nausea, and vomiting. Wound leakage with history of hernia repair. TECHNIQUE: A CT of the abdomen and pelvis was obtained with IV contrast bolus. COMPARISON: 04/03/2017. FINDINGS: The visualized portions of the lung bases are clear. There are no pleural fluid collections. There is no free intraperitoneal air. The liver shows mild low-density change, compatible with fatty infiltration. The patient has had cholecystectomy. The spleen, adrenals, and pancreas are normal. The kidneys bilaterally appear unremarkable. There is no retroperitoneal mass. There are some mildly prominent nodes in the right lower quadrant mesentery which may be reactive. There is no ascites or overt bowel obstruction. There is a residual ventral hernia in the anterior abdominal wall to the left of the midline in the periumbilical region. This contains some loops of small bowel which are not obstructed. There is a small fluid collection in the midline in the upper pelvis measuring about 2.8 x 2.7 cm. IMPRESSION: There is a residual hernia in the left periumbilical region which contains some fat as well as bowel loops which are nonobstructed. There is some scarring in the anterior abdominal wall. There is a small fluid collection in the midline in the upper pelvis in the anterior abdominal wall measuring about 2.8 x 2.7 cm. This may represent a seroma, hematoma, or abscess. There is a surgical anastomosis in the right side of the abdomen. The patient has had cholecystectomy. There are some mildly prominent nodes in the right lower quadrant mesentery which may be reactive, consider followup as clinically warranted. Dictated by: Dictated on workstation # [id number]
[2017-05-12] MEDS ORDERED: VANCOMYCIN INJECTION 1,000 MG in NS (IVPB) 250 ML IV SCH (09:15)
[2017-05-12] MEDS ORDERED: VANCOMYCIN 1500 MG/NS 500 ML IVPB IV NR ×2 (10:00)
[2017-05-12 12:00] VITALS: BP 111/57
[2017-05-12] MEDS ORDERED: diphenhydrAMINE 50 MG/ML INJ (BENADRYL) IV ONE (12:15)
--- NOTE | 2017-05-12 14:54 | Progress Note-Pre Operative ---
Pre-Operative Progress Note H&P Reviewed The H&P was reviewed, patient examined and no changes noted. Date Seen by Provider: May 12, 2017 Time Seen by Provider: 14:53 Date H&P Reviewed: May 12, 2017 Time H&P Reviewed: 14:53 Pre-Operative Diagnosis: aBSCESS OF ABDOMINAL WALL BRAYDON OAKLEY MD May 12, 2017 2:54 pm
[2017-05-12] MEDS ORDERED: morphine INJ 10 MG/ML 1ML (SYR OR VIAL) ONE (15:05)
[2017-05-12] MEDS ORDERED: fentaNYL INJECTION 100 MCG/2 ML AMP ONE ×2 (15:05→18:51)
[2017-05-12 15:35] VITALS: BP 115/75
[2017-05-12] MEDS ORDERED: LACTATED RINGERS 1,000 ML IV PRN (18:48)
[2017-05-12] MEDS ORDERED: proPOfol 200 MG/20 ML (DIPRIVAN) VIAL IV ONE (18:50)
[2017-05-12] MEDS ORDERED: LIDOCAINE PF 2% 5 ML (XYLOCAINE) VIAL ONE (18:50)
[2017-05-12] MEDS ORDERED: MIDAZOLAM 2 MG/2 ML (VERSED) VIAL ONE (18:51)
[2017-05-12] MEDS ORDERED: FAMOTIDINE 20MG/2ML IV (PEPCID) IV ONE (19:00)
[2017-05-12] MEDS ORDERED: SCOPOLAMINE 1.5 MG (TRANSDERM-SCOP) PATCH TOP ONE (19:00)
[2017-05-12] MEDS ORDERED: ONDANSETRON 4 MG/2 ML (SDV) Z0FRAN IV ONE (19:00)
[2017-05-12] MEDS ORDERED: LACTATED RINGERS 1,000 ML IV ONE (19:35)
[2017-05-12] MEDS ORDERED: SEVOFLURANE (ULTANE) 15 ML INHAL SOLN ONE (19:40)
--- NOTE | 2017-05-12 19:48 | Operative Report ---
Operative Report Date of Procedure/Surgery May 12, 2017 Surgeon (s) BRAYDON OAKLEY MD Carpenter Foreman (s): Le Rey(Medical student) Post-Operative Diagnosis same Procedure Performed incision and drainage of abscess of abdominal wall Description of Procedure Anesthesia Type: General Estimated blood loss (mL): minimal Specimen(s) collected/removed pus Description of the Procedure Indication for procedure: This lady presented with what appeared to be a subcutaneous abscess involving a midline abdominal scar resulting from previous excision of an enterocutaneous fistula along with removal of an infected mesh. She was offered drainage under general anesthetic in anticipation of symptom relief. Informed consent was obtained after reviewing the operative details and highlighting the possibility of further recurrence and additional procedures. Description of the procedure: She was placed supine on the operative table and general anesthesia induced using an endotracheal tube. Abdomen was prepared and draped in the usual sterile manner. Pus was found to be extruding from a small sinus just superior lateral to the umbilicus. Therefore, I made an incision about 2 cm long initially. Subsequently, I extended it by additional 2 cm both cephalad and caudad to achieve adequate drainage. The subcutaneous tissue was probed digitally in both directions and I did not encounter any additional pockets. The fascia appeared to be intact. Hemostasis was achieved using cautery and 2 separate Fluker drains were left both superiorly and inferiorly. These were secured using 2-0 silk sutures. A nonadherent dressing was then applied She tolerated the procedure well, was extubated in the operating room and taken to the recovery room in a stable condition. Findings of the Procedure see operative report Allergies and Home Medications Allergies Coded Allergies: vancomycin (Verified Allergy, Intermediate, RED MAN SYNDRONE, 05/12/17) ciprofloxacin (Unverified Allergy, Unknown, 12/20/15) ciprofloxacin HCl (Unverified Allergy, Unknown, 12/20/15) duloxetine (Verified Allergy, Unknown, 12/20/15) Home Medications No Active Prescriptions or Reported Meds BRAYDON OAKLEY MD May 12, 2017 7:48 pm
[2017-05-12 19:55] VITALS: BP 123/80
[2017-05-12] MEDS ORDERED: MEPERIDINE (DEMEROL) INJ 50 MG/ML IVP PRN (20:15)
[2017-05-12] MEDS ORDERED: ONDANSETRON 4 MG/2 ML (SDV) Z0FRAN IVP PRN (20:15)
[2017-05-12] MEDS ORDERED: PROMETHAZINE INJ 25 MG/ML (PHENERGAN) AMP IVP PRN (20:15)
[2017-05-12] MEDS ORDERED: HYDROmorphone (DILAUDID) 2 MG/ML VIAL IVP PRN (20:15)
[2017-05-12] MEDS ORDERED: morphine INJ 10 MG/ML 1ML (SYR OR VIAL) IVP PRN (20:15)
[2017-05-12] MEDS ORDERED: VANCOMYCIN 1250 MG/NS 250 ML IVPB IV SCH ×2 (21:00)
[2017-05-12] MEDS: CLINDAMYCIN 600 MG/NS 50 ML IVPB IV SCH ×2 (21:14)
[2017-05-12] MEDS ORDERED: CLINDAMYCIN INJECTION 600 MG in NS (IVPB) 50 ML IV SCH (22:00)
[2017-05-12] MEDS: NICOTINE 21 MG (NICODERM) PATCH TD SCH (22:30)
[2017-05-13] VITALS: BP 109/56
[2017-05-13] MEDS: ACETAMINOPHEN 500 MG TAB (TYLENOL) PO PRN ×4 (00:25→23:58)
[2017-05-13] MEDS: 1/2 NS IV SOLUTION 1,000 ML IV SCH ×3 (03:00→21:46)
[2017-05-13] MEDS ORDERED: NS IV ONE ×2 (03:13)
[2017-05-13] MEDS ORDERED: SODIUM PHOSPHATE MM IV ONE ×2 (03:13)
[2017-05-13 04:15] VITALS: BP 120/60
[2017-05-13] MEDS: CLINDAMYCIN 600 MG/NS 50 ML IVPB IV SCH ×6 (05:26→21:46)
[2017-05-13] MEDS: fentaNYL INJECTION 100 MCG/2 ML AMP IV PRN (05:26)
[2017-05-13 05:45] LABS: BASOPHILS % (AUTO) 0 % (0-10); EOSINOPHILS # (AUTO) 0.1 10^3/uL (0.0-0.3); EOSINOPHILS % (AUTO) 1 % (0-10); LYMPHOCYTES # (AUTO) 1.2 X 10^3 (1.0-4.0); LYMPHOCYTES % (AUTO) 10 % (12-44); MEAN CORPUSCULAR HEMOGLOBIN 31 PG (25-34); MEAN CORPUSCULAR HGB CONC 33 G/DL (32-36); MEAN CORPUSCULAR VOLUME 93 FL (80-99); MEAN PLATELET VOLUME 9.8 FL (7.4-10.4); MONOCYTES % (AUTO) 8 % (0-12); NEUTROPHILS # (AUTO) 10.3 X 10^3 (1.8-7.8); NEUTROPHILS % (AUTO) 82 % (42-75); PLATELET COUNT 192 10^3/uL (130-400); RED BLOOD COUNT 4.14 10^6/uL (4.35-5.85); WHITE BLOOD COUNT 12.5 10^3/uL (4.3-11.0)
[2017-05-13 06:06] LABS: ALANINE AMINOTRANSFERASE 14 U/L (0-55); ALBUMIN 3.3 GM/DL (3.2-4.5); ANION GAP 8 MMOL/L (5-14); ASPARTATE AMINO TRANSFERASE 14 U/L (5-34); BILIRUBIN,TOTAL 0.3 MG/DL (0.1-1.0); BLOOD UREA NITROGEN 5 MG/DL (7-18); BUN/CREATININE RATIO 7; CALCIUM 8.1 MG/DL (8.5-10.1); CARBON DIOXIDE 23 MMOL/L (21-32); CHLORIDE 109 MMOL/L (98-107); CREATININE SERUM 0.76 MG/DL (0.60-1.30); GFR ESTIMATED > 60; GLUCOSE 106 MG/DL (70-105); POTASSIUM 3.9 MMOL/L (3.6-5.0); SODIUM 140 MMOL/L (135-145)
--- NOTE | 2017-05-13 07:53 | Progress Note (SOAP) ---
Subjective Time Seen by Provider: 07:50 Subjective/Events-last exam patient had surgery yesterday to open up abscess by umbilicus. Patient ran an elevated temperature last night. Patient temperature this morning is 99. Patient still having a headache. Patient still not feeling good Objective Exam Vital Signs Date Time Temp Pulse Resp B/P (MAP) Pulse Ox O2 Delivery O2 Flow Rate FiO2 05/13/17 06:00 101.2 05/13/17 05:26 102.5 05/13/17 04:45 101.2 05/13/17 04:15 102.5 109 18 120/60 97 Room Air 05/13/17 01:00 97 05/13/17 00:00 100.6 105 22 109/56 92 Room Air 05/12/17 20:55 OxyMask 5.00 05/12/17 19:55 99.6 94 18 123/80 95 OxyMask 5.00 05/12/17 19:00 107 05/12/17 18:42 101.6 05/12/17 15:35 99.3 98 18 115/75 93 Room Air 05/12/17 12:00 97.7 87 18 111/57 93 Room Air 05/12/17 09:00 Room Air 05/12/17 08:05 102.7 113 18 116/68 91 Room Air Capillary Refill : Less Than 3 Seconds General Appearance: No Apparent Distress, WD/WN HEENT: Normal ENT Inspection Neck: Full Range of Motion, Normal Inspection Respiratory: Chest Non Tender, Lungs Clear, No Accessory Muscle Use, No Respiratory Distress Cardiovascular: Regular Rate, Rhythm, No Murmur Results Lab Laboratory Tests 05/13/17 05:30 Laboratory Tests 05/13/17 05:30: White Blood Count 12.5H, Red Blood Count 4.14L, Hemoglobin 12.8, Hematocrit 38, Mean Corpuscular Volume 93, Mean Corpuscular Hemoglobin 31, Mean Corpuscular Hemoglobin Concent 33, Red Cell Distribution Width 12.0, Platelet Count 192, Mean Platelet Volume 9.8, Neutrophils (%) (Auto) 82H, Lymphocytes (%) (Auto) 10L , Monocytes (%) (Auto) 8, Eosinophils (%) (Auto) 1, Basophils (%) (Auto) 0, Neutrophils # (Auto) 10.3H, Lymphocytes # (Auto) 1.2, Monocytes # (Auto) 1.0, Eosinophils # (Auto) 0.1, Basophils # (Auto) 0.0, Sodium Level 140, Potassium Level 3.9, Chloride Level 109H, Carbon Dioxide Level 23, Anion Gap 8, Blood Urea Nitrogen 5L, Creatinine 0.76, Estimat Glomerular Filtration Rate > 60, BUN/ Creatinine Ratio 7, Glucose Level 106H, Calcium Level 8.1L, Total Bilirubin 0.3 , Aspartate Amino Transf (AST/SGOT) 14, Alanine Aminotransferase (ALT/SGPT) 14, Alkaline Phosphatase 73, Total Protein 6.0L, Albumin 3.3 Microbiology 05/12/17 Gram Stain - Final, Resulted 05/12/17 Wound Culture - Preliminary, Resulted Staph, Coag Neg (Online Editor) Assessment/Plan Assessment/Plan Assess & Plan/Chief Complaint abscess around the umbilicus. Headache. Febrile. Patient states this morning temperature better. Headache.. Had surgery yesterday. Patient work in progress Clinical Quality Measures DVT/VTE Risk/Contraindication: Risk Factor Score Per Nursin RFS Level Per Nursing on Admit: 3=High Contraindications-Pharm: Other *list below* FABI ABDALLA DO May 13, 2017 07:53
[2017-05-13] MEDS ORDERED: TROUGH ORDER-PHARMACY XX ONE (08:00)
--- NOTE | 2017-05-13 08:07 | Progress Note-Standard ---
Standard Progress Note Progress Notes/Assess & Plan Date Seen by Provider: May 13, 2017 Time Seen by Provider: 08:06 Progress/Assessment & Plan Fever down, reports headache. Coag neg staph on initial cultures. Will continue wound care and possibly discharge in am. Drains to stay till 05/20 Final Diagnosis Abscess of abdominal wall. BRAYDON OAKLEY MD May 13, 2017 8:07 am
[2017-05-13] MEDS ORDERED: HYDR-3820 PO (08:08)
[2017-05-13] MEDS: NICOTINE 21 MG (NICODERM) PATCH TD SCH (08:16)
[2017-05-13] MEDS: NICOTINE PATCH REMOVAL TP SCH (08:16)
[2017-05-13] MEDS: HYDROcodone/APAP 5 MG/325 MG (LORTAB) TAB PO PRN (08:17)
[2017-05-13 08:55] VITALS: BP 103/56
[2017-05-13] MEDS ORDERED: NICOTINE 21 MG (NICODERM) PATCH TD SCH (09:00)
[2017-05-13 12:54] VITALS: BP 110/58
[2017-05-13] MEDS: IBUPROFEN 600 MG (MOTRIN) TAB PO SCH ×2 (15:13→21:46)
[2017-05-13 16:00] VITALS: BP 107/65
[2017-05-13 19:38] VITALS: BP 99/53
[2017-05-13 21:14] LABS: BILIRUBIN,URINE NEGATIVE (NEGATIVE); KETONES,URINE NEGATIVE (NEGATIVE); LEUKOCYTE ESTERASE ,URINE 1+ (NEGATIVE); NITRITE,URINE NEGATIVE (NEGATIVE); PH,URINE 6.5 (5-9); PROTEIN,URINE NEGATIVE (NEGATIVE); UROBILINOGEN,URINE NORMAL (NORMAL)
[2017-05-14] VITALS (7 sets, daily range): BP systolic 98–133; BP diastolic 55–82
[2017-05-14] MEDS: HYDROcodone/APAP 5 MG/325 MG (LORTAB) TAB PO PRN (01:28)
[2017-05-14] MEDS: 1/2 NS IV SOLUTION 1,000 ML IV SCH ×4 (05:43→23:36)
[2017-05-14] MEDS: IBUPROFEN 600 MG (MOTRIN) TAB PO SCH ×3 (05:43→21:27)
[2017-05-14] MEDS: CLINDAMYCIN 600 MG/NS 50 ML IVPB IV SCH ×6 (05:44→21:27)
[2017-05-14 06:38] LABS: BASOPHILS % (AUTO) 0 % (0-10); EOSINOPHILS # (AUTO) 0.1 10^3/uL (0.0-0.3); EOSINOPHILS % (AUTO) 1 % (0-10); LYMPHOCYTES % (AUTO) 15 % (12-44); MEAN CORPUSCULAR HEMOGLOBIN 31 PG (25-34); MEAN CORPUSCULAR HGB CONC 33 G/DL (32-36); MEAN CORPUSCULAR VOLUME 92 FL (80-99); MEAN PLATELET VOLUME 9.7 FL (7.4-10.4); MONOCYTES # (AUTO) 1.4 X 10^3 (0.0-1.0); MONOCYTES % (AUTO) 10 % (0-12); NEUTROPHILS # (AUTO) 10.1 X 10^3 (1.8-7.8); NEUTROPHILS % (AUTO) 74 % (42-75); PLATELET COUNT 185 10^3/uL (130-400); RED BLOOD COUNT 3.95 10^6/uL (4.35-5.85); RED CELL DISTRIBUTION WIDTH 11.9 % (10.0-14.5); WHITE BLOOD COUNT 13.6 10^3/uL (4.3-11.0)
[2017-05-14 06:55] LABS: ANION GAP 11 MMOL/L (5-14); BLOOD UREA NITROGEN 5 MG/DL (7-18); BUN/CREATININE RATIO 7; CALCIUM 8.3 MG/DL (8.5-10.1); CARBON DIOXIDE 22 MMOL/L (21-32); CHLORIDE 110 MMOL/L (98-107); CREATININE SERUM 0.71 MG/DL (0.60-1.30); GFR ESTIMATED > 60; GLUCOSE 99 MG/DL (70-105); POTASSIUM 3.5 MMOL/L (3.6-5.0); SODIUM 143 MMOL/L (135-145)
--- NOTE | 2017-05-14 07:52 | Progress Note (SOAP) ---
Subjective Time Seen by Provider: 07:45 Subjective/Events-last exam patient feeling a little better. Patient had an elevated temperature last night. White blood cell count increased a little. Cutaneous fistula. Headache. Objective Exam Vital Signs Date Time Temp Pulse Resp B/P (MAP) Pulse Ox O2 Delivery O2 Flow Rate FiO2 05/14/17 07:24 98.5 90 20 108/68 95 Room Air 05/14/17 04:15 98.6 97 20 98/58 93 Room Air 05/14/17 01:45 100.7 05/14/17 01:25 101.0 05/14/17 01:00 104 05/14/17 00:45 101.6 05/14/17 00:45 101.6 05/14/17 00:20 102.1 101 20 106/55 97 Room Air 05/13/17 23:58 102.1 05/13/17 20:30 Room Air 05/13/17 19:38 97.8 90 20 99/53 91 Room Air 05/13/17 19:00 98 05/13/17 17:45 97.8 05/13/17 16:50 99.5 05/13/17 16:00 100.6 124 21 107/65 92 Room Air 05/13/17 12:54 102.7 110 22 110/58 90 Room Air 05/13/17 12:36 102.5 05/13/17 09:00 Room Air 05/13/17 08:55 99.8 111 18 103/56 90 Room Air Capillary Refill : Less Than 3 Seconds General Appearance: No Apparent Distress, WD/WN HEENT: Normal ENT Inspection Neck: Full Range of Motion, Normal Inspection Respiratory: Chest Non Tender, Lungs Clear, No Accessory Muscle Use, No Respiratory Distress Cardiovascular: Regular Rate, Rhythm Gastrointestinal: soft Results Lab Laboratory Tests 05/14/17 06:20 Laboratory Tests 05/13/17 21:05: Urine Color YELLOW, Urine Clarity SLIGHTLY CLOUDY, Urine pH 6.5, Urine Specific [place] 1.010L, Urine Protein NEGATIVE, Urine Glucose (UA) NEGATIVE, Urine Ketones NEGATIVE, Urine Nitrite NEGATIVE, Urine Bilirubin NEGATIVE, Urine Urobilinogen NORMAL, Urine Leukocyte Esterase 1+H, Urine RBC (Auto) NEGATIVE, Urine RBC NONE, Urine WBC 2-5, Urine Squamous Epithelial Cells 10-25H, Urine Crystals NONE, Urine Bacteria TRACE, Urine Casts NONE, Urine Mucus NEGATIVE, Urine Culture Indicated NO 05/14/17 06:20: White Blood Count 13.6H, Red Blood Count 3.95L, Hemoglobin 12.2, Hematocrit 37, Mean Corpuscular Volume 92, Mean Corpuscular Hemoglobin 31, Mean Corpuscular Hemoglobin Concent 33, Red Cell Distribution Width 11.9, Platelet Count 185, Mean Platelet Volume 9.7, Neutrophils (%) (Auto) 74, Lymphocytes (%) (Auto) 15, Monocytes (%) (Auto) 10, Eosinophils (%) (Auto) 1, Basophils (%) (Auto) 0, Neutrophils # (Auto) 10.1H, Lymphocytes # (Auto) 2.0, Monocytes # (Auto) 1.4H, Eosinophils # (Auto) 0.1, Basophils # (Auto) 0.0, Sodium Level 143, Potassium Level 3.5L, Chloride Level 110H, Carbon Dioxide Level 22, Anion Gap 11, Blood Urea Nitrogen 5L, Creatinine 0.71, Estimat Glomerular Filtration Rate > 60, BUN/ Creatinine Ratio 7, Glucose Level 99, Calcium Level 8.3L Microbiology 05/12/17 MRSA Screen - Final, Complete MRSA not isolated 05/12/17 Gram Stain - Final, Resulted 05/12/17 Wound Culture, Resulted Pending Assessment/Plan Assessment/Plan Assess & Plan/Chief Complaint abscess around the umbilicus. Headache. Febrile. Patient states this morning temperature better. Headache.. Had surgery yesterday. Patient work in progress. . 05/14/70. Abscess around the umbilicus. Headache. Febrile last night. Patient feeling a little better. White blood cell count was in wrong direction Clinical Quality Measures DVT/VTE Risk/Contraindication: Risk Factor Score Per Nursin RFS Level Per Nursing on Admit: 3=High Contraindications-Pharm: Other *list below* FABI ABDALLA DO May 14, 2017 07:52
[2017-05-14] MEDS: NICOTINE PATCH REMOVAL TP SCH (09:42)
[2017-05-14] MEDS: NICOTINE 21 MG (NICODERM) PATCH TD SCH (09:42)
[2017-05-14] MEDS: ACETAMINOPHEN 500 MG TAB (TYLENOL) PO PRN ×2 (10:16→23:36)
--- NOTE | 2017-05-14 13:04 | Anesthesia-General Post-Op ---
General Patient Condition Mental Status/LOC: Same as Preop Cardiovascular: Satisfactory Nausea/Vomiting: Absent Respiratory: Satisfactory Pain: Controlled Complications: Absent Post Op Complications Complications None Follow Up Care/Instructions Patient Instructions None needed. Anesthesia/Patient Condition Patient Condition Patient is doing well, no complaints, stable vital signs, no apparent adverse anesthesia problems. No complications reported per nursing. [place] [facility] [place] No DEV MAST CRNA May 14, 2017 13:04
--- NOTE | 2017-05-14 13:09 | Diagnostic Imaging Report ---
EXAMINATION: PA and lateral chest at 0954 hours. INDICATION: Fever. FINDINGS: The heart size is within normal limits and stable when compared to 06/25/2015. The lungs are clear. There is no sign of failure, pneumonia, or pleural effusion to suggest an acute abnormality. The mediastinum is not widened. The osseous structures are intact. IMPRESSION: There is no evidence for active disease. Dictated by: Dictated on workstation # [id number]
--- NOTE | 2017-05-14 13:10 | Progress Note-Standard ---
Standard Progress Note Progress Notes/Assess & Plan Date Seen by Provider: May 14, 2017 Time Seen by Provider: 13:00 Progress/Assessment & Plan Fever last night but better today. Headache. No N/V. No Diarrhea/constipation. Minimal abdominal tenderness. Abdominal incision with [place] drains in place with SS drainage. Dressing C/D/I. Mild erythema noted around incision. WBC slightly increased. Will continue to monitor labs. Continue with wound care and IV abx. Final Diagnosis abdominal wall abscess MACEY JOSEPH APRN May 14, 2017 1:10 pm
--- NOTE | 2017-05-14 15:16 | Progress Note-Standard ---
Standard Progress Note Progress Notes/Assess & Plan Date Seen by Provider: May 14, 2017 Time Seen by Provider: 15:00 Progress/Assessment & Plan patient seen and evaluated and agree with denise HANKINS. subcutaneous abscess x2. complicated hx with multiple wound infections, recurrent hernias, infected meshes, and small bowel fistulas. patient a heavy smoker. C&S staph and corynebacterium ss to clinda. JANIE GALLARDO MD May 14, 2017 15:16
[2017-05-15 03:10] VITALS: BP 100/65
[2017-05-15] MEDS: CLINDAMYCIN 600 MG/NS 50 ML IVPB IV SCH ×4 (05:57→14:44)
[2017-05-15] MEDS: IBUPROFEN 600 MG (MOTRIN) TAB PO SCH ×2 (05:58→14:44)
[2017-05-15 06:44] LABS: BASOPHILS % (AUTO) 0 % (0-10); EOSINOPHILS # (AUTO) 0.2 10^3/uL (0.0-0.3); EOSINOPHILS % (AUTO) 2 % (0-10); LYMPHOCYTES # (AUTO) 1.9 X 10^3 (1.0-4.0); LYMPHOCYTES % (AUTO) 19 % (12-44); MEAN CORPUSCULAR HEMOGLOBIN 30 PG (25-34); MEAN CORPUSCULAR HGB CONC 33 G/DL (32-36); MEAN CORPUSCULAR VOLUME 93 FL (80-99); MEAN PLATELET VOLUME 10.2 FL (7.4-10.4); MONOCYTES # (AUTO) 0.8 X 10^3 (0.0-1.0); MONOCYTES % (AUTO) 8 % (0-12); NEUTROPHILS # (AUTO) 7.2 X 10^3 (1.8-7.8); NEUTROPHILS % (AUTO) 72 % (42-75); PLATELET COUNT 195 10^3/uL (130-400); RED BLOOD COUNT 3.68 10^6/uL (4.35-5.85)
[2017-05-15 07:09] LABS: ALANINE AMINOTRANSFERASE 18 U/L (0-55); ANION GAP 6 MMOL/L (5-14); ASPARTATE AMINO TRANSFERASE 18 U/L (5-34); BILIRUBIN,TOTAL 0.2 MG/DL (0.1-1.0); BLOOD UREA NITROGEN 5 MG/DL (7-18); BUN/CREATININE RATIO 7; CALCIUM 8.2 MG/DL (8.5-10.1); CARBON DIOXIDE 27 MMOL/L (21-32); CHLORIDE 111 MMOL/L (98-107); CREATININE SERUM 0.71 MG/DL (0.60-1.30); GFR ESTIMATED > 60; GLUCOSE 100 MG/DL (70-105); POTASSIUM 3.4 MMOL/L (3.6-5.0); SODIUM 144 MMOL/L (135-145); TOTAL PROTEIN 5.5 GM/DL (6.4-8.2)
[2017-05-15] MEDS ORDERED: PIPERACILLIN SODIUM/TAZOBACTAM 4.5 GM in NS (IVPB) 100 ML IV NR (08:00)
[2017-05-15] MEDS: NICOTINE PATCH REMOVAL TP SCH (08:11)
[2017-05-15] MEDS: NICOTINE 21 MG (NICODERM) PATCH TD SCH (08:11)
--- NOTE | 2017-05-15 08:12 | Progress Note (SOAP) ---
Subjective Time Seen by Provider: 08:10 Subjective/Events-last exam patient spiked temperature of 103. Patient has multiple organisms from culture. Added Zosyn. White blood cell count better. Still has drainage from abscess Objective Exam Vital Signs Date Time Temp Pulse Resp B/P (MAP) Pulse Ox O2 Delivery O2 Flow Rate FiO2 05/15/17 03:10 98.5 85 18 100/65 96 Room Air 05/15/17 02:31 99.0 05/15/17 01:00 91 05/14/17 23:36 103.0 05/14/17 23:20 97.9 104 20 106/67 93 Room Air 05/14/17 21:00 Room Air 05/14/17 19:20 98.9 90 20 112/71 94 Room Air 05/14/17 19:00 97 05/14/17 15:35 99.6 86 18 121/75 95 Room Air 05/14/17 11:55 98.9 109 20 133/82 95 Room Air 05/14/17 10:16 98.5 Capillary Refill : Less Than 3 Seconds General Appearance: No Apparent Distress, WD/WN HEENT: Normal ENT Inspection Neck: Full Range of Motion, Normal Inspection Respiratory: Chest Non Tender, Lungs Clear, Normal Breath Sounds, No Accessory Muscle Use, No Respiratory Distress Cardiovascular: Regular Rate, Rhythm, No Murmur Results Lab Laboratory Tests 05/15/17 06:10 Laboratory Tests 05/15/17 06:10: White Blood Count 10.0, Red Blood Count 3.68L, Hemoglobin 11.2L, Hematocrit 34L , Mean Corpuscular Volume 93, Mean Corpuscular Hemoglobin 30, Mean Corpuscular Hemoglobin Concent 33, Red Cell Distribution Width 12.0, Platelet Count 195, Mean Platelet Volume 10.2, Neutrophils (%) (Auto) 72, Lymphocytes (%) (Auto) 19 , Monocytes (%) (Auto) 8, Eosinophils (%) (Auto) 2, Basophils (%) (Auto) 0, Neutrophils # (Auto) 7.2, Lymphocytes # (Auto) 1.9, Monocytes # (Auto) 0.8, Eosinophils # (Auto) 0.2, Basophils # (Auto) 0.0, Sodium Level 144, Potassium Level 3.4L, Chloride Level 111H, Carbon Dioxide Level 27, Anion Gap 6, Blood Urea Nitrogen 5L, Creatinine 0.71, Estimat Glomerular Filtration Rate > 60, BUN/ Creatinine Ratio 7, Glucose Level 100, Calcium Level 8.2L, Total Bilirubin 0.2, Aspartate Amino Transf (AST/SGOT) 18, Alanine Aminotransferase (ALT/SGPT) 18, Alkaline Phosphatase 75, Total Protein 5.5L, Albumin 3.0L Microbiology 05/12/17 MRSA Screen - Final, Complete MRSA not isolated 05/12/17 Gram Stain - Final, Resulted 05/12/17 Anaerobic Culture - Preliminary, Resulted Prob Anaerobic Gram Neg Ángel Prob Anaerobic Gram Pos Cocci 05/12/17 Surgical Culture - Preliminary, Resulted Corynebacterium Species Assessment/Plan Assessment/Plan Assess & Plan/Chief Complaint abscess around the umbilicus. Headache. Febrile. Patient states this morning temperature better. Headache.. Had surgery yesterday. Patient work in progress. . 05/14/70. Abscess around the umbilicus. Headache. Febrile last night. Patient feeling a little better. White blood cell count was in wrong direction. . 05/15/17. Abscess around the umbilicus. Still has some drainage. Cultures came back multiple organisms. Patient ran a temperature 103 last night area White blood cell count improved. Clinical Quality Measures DVT/VTE Risk/Contraindication: Risk Factor Score Per Nursin RFS Level Per Nursing on Admit: 3=High Contraindications-Pharm: Other *list below* FABI ABDALLA DO May 15, 2017 08:12
[2017-05-15 08:55] VITALS: BP 115/72
--- NOTE | 2017-05-15 10:30 | Progress Note-Standard ---
Standard Progress Note Progress Notes/Assess & Plan Date Seen by Provider: May 15, 2017 Time Seen by Provider: 10:25 Progress/Assessment & Plan Seen with Dr. Goyal. Spiked fever last night, switched to zosyn. WBC improved. No Headache. No N/V. No Diarrhea does report constipation. Minimal abdominal tenderness. Abdominal incision with [place] drains in place with SS drainage. Dressing C/D/I. Mild erythema noted around incision. Will continue to monitor labs. Continue with wound care and IV abx. Will plan to DC tomorrow AM. Final Diagnosis Abdominal abscess MACEY JOSEPH APRN May 15, 2017 10:30 am
[2017-05-15] MEDS: 1/2 NS IV SOLUTION 1,000 ML IV SCH (10:52)
[2017-05-15] MEDS ORDERED: POLYETHYLENE GLYCOL 17 GM (MIRALAX) PACK PO SCH (11:00)
[2017-05-15 12:00] VITALS: BP 116/71
[2017-05-15] MEDS ORDERED: PIPERACILLIN SODIUM/TAZOBACTAM 4.5 GM in NS (IVPB) 100 ML IV SCH (14:00)
[2017-05-15 16:00] VITALS: BP 108/63
[2017-05-15] MEDS ORDERED: SULF1TAB35 PO (19:50)
== END 2017-05-15 20:10 | disposition home or self-care (01) | DRG 357 ==
LOC: EDUNIT# 23:33 → ER 23:35 → 4TH 05-12 02:15
PROVIDERS: ADMIT Surgery; ATTEND Surgery
PROC: 0W9F0ZZ Drainage of Abdominal Wall, Open Approach (ICD-10-PCS; principal; 2017-05-12 19:06)
DX: K63.2 Fistula of intestine (principal); L02.211 Cutaneous abscess of abdominal wall; F17.210 Nicotine dependence, cigarettes, uncomplicated; I34.1 Nonrheumatic mitral (valve) prolapse; F90.9 Attention-deficit hyperactivity disorder, unspecified type; F32.9 Major depressive disorder, single episode, unspecified; Z90.49 Acquired absence of other specified parts of digestive tract
CPT/HCPCS: 36415; 71020; 74177; 80048; 80053; 81000; 83605; 83690; 83735; 84100; 85025; 87040; 87070; 87075; 87077; 87081; 87186; 87205; 93005; 96361; 96374

== ENCOUNTER 2017-05-19 13:30 | Outpatient (RCR) | payer OTHER ==
[2017-05-16 14:53] VITALS: BP 128/76
[2017-05-17 09:07] VITALS: BP 110/67
[2017-05-18 12:15] VITALS: BP 112/68
[~2017-05-19] VITALS: Ht 165.1 cm; Wt 99.5 kg
[2017-05-19 13:30] VITALS: BP 118/72
[~2017-05-19 13:30] MED LIST changes: +HYDR-3820 PO
== END 2017-06-14 | disposition home or self-care (01) ==
LOC: 4TH RCR 13:30
PROVIDERS: ATTEND Family Medicine
DX: Z48.01 Encounter for change or removal of surgical wound dressing (principal)
CPT/HCPCS: 99211; 99212

== ENCOUNTER 2017-05-20 12:53 | Outpatient (RCR) | payer OTHER ==
[2017-05-20 13:06] LABS: BASOPHILS % (AUTO) 0 % (0-10); EOSINOPHILS # (AUTO) 0.2 10^3/uL (0.0-0.3); EOSINOPHILS % (AUTO) 2 % (0-10); LYMPHOCYTES # (AUTO) 2.7 X 10^3 (1.0-4.0); LYMPHOCYTES % (AUTO) 23 % (12-44); MEAN CORPUSCULAR HEMOGLOBIN 31 PG (25-34); MEAN CORPUSCULAR HGB CONC 33 G/DL (32-36); MEAN CORPUSCULAR VOLUME 92 FL (80-99); MEAN PLATELET VOLUME 9.3 FL (7.4-10.4); MONOCYTES # (AUTO) 0.9 X 10^3 (0.0-1.0); MONOCYTES % (AUTO) 8 % (0-12); NEUTROPHILS # (AUTO) 7.6 X 10^3 (1.8-7.8); NEUTROPHILS % (AUTO) 67 % (42-75); PLATELET COUNT 346 10^3/uL (130-400); RED BLOOD COUNT 4.47 10^6/uL (4.35-5.85); RED CELL DISTRIBUTION WIDTH 12.1 % (10.0-14.5); WHITE BLOOD COUNT 11.4 10^3/uL (4.3-11.0)
== END 2017-06-14 | disposition home or self-care (01) ==
LOC: LAB 12:53
PROVIDERS: ATTEND Family Medicine
DX: L02.211 Cutaneous abscess of abdominal wall (principal)
CPT/HCPCS: 36415; 85025

== ENCOUNTER → 2017-07-07 | Outpatient (CLI) | payer OTHER ==
[~2017-07-07] MED LIST changes: +BARIUM SUSPENSION 2.1% (VANILLA SILQ) 450 ML PO ONE; +CATHETER FLUSH 10 ML SYR IV PRN; +IOHEXOL 350 MG/ML 100 ML (OMNIPAQUE 350) VIAL IV ONE; +NS 100 ML (IVPB) BAG IV ONE
--- NOTE | 2017-07-07 12:57 | Diagnostic Imaging Report ---
PROCEDURE: CT abdomen with contrast only. TECHNIQUE: Multiple contiguous axial images were obtained through the abdomen after the administration of intravenous contrast. INDICATION: Abdominal pain and distention. 100 mL of Omnipaque 350 is administered intravenously. COMPARISON: 05/12/2017. FINDINGS: There is minimal atelectasis in the left lung base. The liver, the spleen, the pancreas, and the adrenal glands appear unremarkable. Cholecystectomy clips are seen. The kidneys have symmetric enhancement and contrast excretion. There is no hydronephrosis. The abdominal aorta is normal in caliber. No para-aortic significantly enlarged lymph nodes seen. There is a left periumbilical ventral hernia containing nonobstructed small bowel loops. The hernia is enlarged when compared to the previous exam and the hernia defect at the abdominal wall measures 4.5 cm in transverse dimension and 6.6 cm craniocaudally. The osseous structures appear grossly unremarkable. IMPRESSION: Left periumbilical ventral hernia containing small bowel loops without obstruction is seen. It is larger when compared to the previous exam. Dictated by: Dictated on workstation # [id number]
== END ==
LOC: RAD 11:43
PROVIDERS: ATTEND Surgery
DX: K43.9 Ventral hernia without obstruction or gangrene (principal); Z90.49 Acquired absence of other specified parts of digestive tract
CPT/HCPCS: 74160

== ENCOUNTER 2017-10-12 22:53 | Emergency (ER) | payer SELFPAY ==
[~2017-10-12] VITALS: Ht 165.1 cm; Wt 93.4 kg
[~2017-10-12 22:53] MED LIST changes: +ACHD5005 PO; -BARIUM SUSPENSION 2.1% (VANILLA SILQ) 450 ML PO ONE; -CATHETER FLUSH 10 ML SYR IV PRN; -HYDR-3812 PO; -IBUP-15 PO; +IBUP-16 PO; -IOHEXOL 350 MG/ML 100 ML (OMNIPAQUE 350) VIAL IV ONE; -NS 100 ML (IVPB) BAG IV ONE
--- OUTSIDE RECORDS SUMMARY | 2017-10-12 23:03 | XMS REPORT ---
Author Author IVAN MEJIA [facility] Address [address] [place] [address] Care Team Providers Care Laborer Orchard Name Role Phone IVAN MEJIA Unavailable PROBLEMS Type Condition ICD9-CM Code [id number] Code Onset Dates Condition Status SNOMED Code Problem Gastroesophageal reflux disease with hiatal hernia K21.9 Active 220741073 Problem Abdominal pain, recurrent R10.9 Active 352660145 Problem Abdominal abscess K65.1 Active 80709577 Problem Mitral valve prolapse I34.1 Active 707153398 Problem S/P umbilical hernia repair, follow-up exam Z09 Active 179748971 Problem Hx of umbilical hernia repair Z98.89 Active 333841522 Problem ADHD (attention deficit hyperactivity disorder) F90.9 Active 484478358 Problem Hypercholesterolemia E78.0 Active 87259911 ALLERGIES Unknown Allergies SOCIAL HISTORY No smoking Hx information available PLAN OF CARE VITAL SIGNS MEDICATIONS Medication Instructions Dosage Frequency Start Date End Date Duration Status Adderall XR 30 MG Orally Once a day one daily 24h January, Active RESULTS No Results PROCEDURES No Known procedures IMMUNIZATIONS No Known Immunizations
--- OUTSIDE RECORDS SUMMARY | 2017-10-12 23:06 | XMS REPORT | Continuity of Care Document ---
Author Author [facility] Address Unknown Phone Unavailable Allergies Active Description Code Type Severity Reaction Onset Reported/Identified Relationship to Patient Clinical Status Yes ampicillin [id number] Drug Allergy Unknown N/A 11/21/2006 Yes ampicillin Drug Allergy N/A N/A 09/29/2009 Yes ampicillin Drug Allergy 09/29/2009 Yes Cipro Drug Allergy N/A N/A 07/28/2012 Yes Cipro Drug Allergy 07/28/2012 Yes Cymbalta Drug Allergy N/A N/A 02/23/2013 Yes ciprofloxacin [id number] Drug Allergy Unknown N/A 12/20/2015 Yes ciprofloxacin HCl [id number] Drug Allergy Unknown N/A 12/20/2015 Yes duloxetine [id number] Drug Allergy Unknown N/A 12/20/2015 Yes vancomycin [id number] Drug Allergy Moderate RED MAN SYNDRON 05/12/2017 Medications There is no data. 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, 08/14/1199 EMILIANA HUNT MD Ot L98.491 NON-PRS CHRONIC ULCER SKIN/ SITES LIMITE 08/14/1199 EMILIANA HUNT MD Ot T81.31XA DISRUPTION OF EXTERNAL OPERATION (SURGIC 09/29/2009 SALAS DO, FINN K 780.79 OTHER MALAISE AND FATIGUE 09/29/2009 SALAS DO, FINN K 786.50 CHEST PAIN, UNSPECIFIED 09/29/2009 SALAS DO, FINN K 789.00 ABDOMINAL PAIN UNSPECIFIED SITE 09/29/2009 SALAS DO FINN K 780.79 OTHER MALAISE AND FATIGUE 09/29/2009 SALAS DO FINN K 786.50 CHEST PAIN, UNSPECIFIED 09/29/2009 SALAS DO FINN K 789.00 ABDOMINAL PAIN UNSPECIFIED SITE 09/29/2009 JOSUE MARAVILLA FINN K 780.79 OTHER MALAISE AND FATIGUE 09/29/2009 SALAS DO, FINN K 786.50 CHEST PAIN, UNSPECIFIED 09/29/2009 SALAS DO, FINN K 789.00 ABDOMINAL PAIN UNSPECIFIED SITE 09/29/2009 780.79 OTHER MALAISE AND FATIGUE 09/29/2009 786.50 CHEST PAIN, UNSPECIFIED 09/29/2009 789.00 ABDOMINAL PAIN UNSPECIFIED SITE 09/29/2009 780.79 OTHER MALAISE AND FATIGUE 09/29/2009 786.50 CHEST PAIN, UNSPECIFIED 09/29/2009 789.00 ABDOMINAL PAIN UNSPECIFIED SITE 09/29/2009 780.79 OTHER MALAISE AND FATIGUE 09/29/2009 786.50 CHEST PAIN, UNSPECIFIED 09/29/2009 789.00 ABDOMINAL PAIN UNSPECIFIED SITE 09/29/2009 780.79 OTHER MALAISE AND FATIGUE 09/29/2009 786.50 CHEST PAIN, UNSPECIFIED 09/29/2009 789.00 ABDOMINAL PAIN UNSPECIFIED SITE 09/29/2009 780.79 OTHER MALAISE AND FATIGUE 09/29/2009 786.50 CHEST PAIN, UNSPECIFIED 09/29/2009 789.00 ABDOMINAL PAIN UNSPECIFIED SITE 09/29/2009 SERA HOOD APRNIDI A 780.79 OTHER MALAISE AND FATIGUE 09/29/2009 SERA HOOD APRNIDI A 786.50 CHEST PAIN, UNSPECIFIED 09/29/2009 SERA HOOD APRNIDI A 789.00 ABDOMINAL PAIN UNSPECIFIED SITE 09/29/2009 DAVID SNYDER APRN 780.79 OTHER MALAISE AND FATIGUE 09/29/2009 DAVID SNYDER APRN 786.50 CHEST PAIN, UNSPECIFIED 09/29/2009 DAVID SNYDER APRN 789.00 ABDOMINAL PAIN UNSPECIFIED SITE 09/29/2009 SALAS DO, FINN K 780.79 OTHER MALAISE AND FATIGUE 09/29/2009 SALAS DO, FINN K 786.50 CHEST PAIN, UNSPECIFIED 09/29/2009 SALAS DO, FINN K 789.00 ABDOMINAL PAIN UNSPECIFIED SITE 09/29/2009 SANA HANKINS CAROLE A 780.79 OTHER MALAISE AND FATIGUE 09/29/2009 SANA HANKINS CAROLE A 786.50 CHEST PAIN, UNSPECIFIED 09/29/2009 SERA HOOD APRNIDI A 789.00 ABDOMINAL PAIN UNSPECIFIED SITE 02/08/2010 Ot 620.2 02/08/2010 Ot 784.0 02/08/2010 Ot 789.03 03/29/2010 Ot 550.92 03/29/2010 Ot 552.21 03/29/2010 Ot 575.11 03/29/2010 Ot 620.2 03/29/2010 Ot 786.9 08/28/2010 Ot 726.91 EXOSTOSIS, SITE NOS 08/28/2010 Ot 729.5 PAIN IN LIMB 10/15/2010 FINN SALAS DO 726.91 EXOSTOSIS OF UNSPECIFIED SITE 10/15/2010 FINN SALAS DO 726.91 EXOSTOSIS OF UNSPECIFIED SITE 10/15/2010 FINN SALAS DO 726.91 EXOSTOSIS OF UNSPECIFIED SITE 10/15/2010 726.91 EXOSTOSIS OF UNSPECIFIED SITE 10/15/2010 726.91 EXOSTOSIS OF UNSPECIFIED SITE 10/15/2010 726.91 EXOSTOSIS OF UNSPECIFIED SITE 10/15/2010 726.91 EXOSTOSIS OF UNSPECIFIED SITE 10/15/2010 726.91 EXOSTOSIS OF UNSPECIFIED SITE 10/15/2010 CAROLE HOOD APRN 726.91 EXOSTOSIS OF UNSPECIFIED SITE 10/15/2010 DAVID SNYDER APRN 726.91 EXOSTOSIS OF UNSPECIFIED SITE 10/15/2010 FINN SALAS DO 726.91 EXOSTOSIS OF UNSPECIFIED SITE 10/15/2010 CAROLE HOOD APRN A 726.91 EXOSTOSIS OF UNSPECIFIED SITE 10/19/2010 FINN SALAS DO 726.73 HEEL SPUR 10/19/2010 FINN SALAS DO 729.4 PLANTAR FASCIITIS 10/19/2010 FINN SALAS DO 726.73 HEEL SPUR 10/19/2010 FINN SALAS DO 729.4 PLANTAR FASCIITIS 10/19/2010 FINN SALAS DO 726.73 HEEL SPUR 10/19/2010 FINN SALAS DO 729.4 PLANTAR FASCIITIS 10/19/2010 726.73 HEEL SPUR 10/19/2010 729.4 PLANTAR FASCIITIS 10/19/2010 726.73 HEEL SPUR 10/19/2010 729.4 PLANTAR FASCIITIS 10/19/2010 726.73 HEEL SPUR 10/19/2010 729.4 PLANTAR FASCIITIS 10/19/2010 726.73 HEEL SPUR 10/19/2010 729.4 PLANTAR FASCIITIS 10/19/2010 726.73 HEEL SPUR 10/19/2010 729.4 PLANTAR FASCIITIS 10/19/2010 CAROLE HOOD APRN 726.73 HEEL SPUR 10/19/2010 CAROLE HOOD APRN A 729.4 PLANTAR FASCIITIS 10/19/2010 DAVID SNYDER APRN 726.73 HEEL SPUR 10/19/2010 DAVID SNYDER APRN 729.4 PLANTAR FASCIITIS 10/19/2010 FINN SALAS DO 726.73 HEEL SPUR 10/19/2010 FINN SALAS DO 729.4 PLANTAR FASCIITIS 10/19/2010 CAROLE HOOD APRN A 726.73 HEEL SPUR 10/19/2010 CAROLE HOOD APRN A 729.4 PLANTAR FASCIITIS 11/02/2010 FINN SALAS DO 726.79 TENDONITIS PERONEAL 11/02/2010 FINN SALAS DO 726.79 TENDONITIS PERONEAL 11/02/2010 FINN SALAS DO 726.79 TENDONITIS PERONEAL 11/02/2010 726.79 TENDONITIS PERONEAL 11/02/2010 726.79 TENDONITIS PERONEAL 11/02/2010 726.79 TENDONITIS PERONEAL 11/02/2010 726.79 TENDONITIS PERONEAL 11/02/2010 726.79 TENDONITIS PERONEAL 11/02/2010 CAROLE HOOD APRN A 726.79 TENDONITIS PERONEAL 11/02/2010 DAVID SNYDER APRN 726.79 TENDONITIS PERONEAL 11/02/2010 FINN SALAS DO 726.79 TENDONITIS PERONEAL 11/02/2010 CAROLE HOOD APRN A 726.79 TENDONITIS PERONEAL 12/09/2010 Ot 787.03 VOMITING ALONE 12/09/2010 Ot 789.09 ABDOMINAL PAIN, OTHER SPECIFIED SITE 12/14/2010 FINN SALAS DO 355.5 TARSAL TUNNEL SYNDROME 12/14/2010 FINN SALAS DO 611.71 BREAST PAIN 12/14/2010 SALAS DO, FINN K 355.5 TARSAL TUNNEL SYNDROME 12/14/2010 SALAS DO, FINN K 611.71 BREAST PAIN 12/14/2010 SALAS DO, FINN K 355.5 TARSAL TUNNEL SYNDROME 12/14/2010 SALAS DO, FINN K 611.71 BREAST PAIN 12/14/2010 355.5 TARSAL TUNNEL SYNDROME 12/14/2010 611.71 BREAST PAIN 12/14/2010 355.5 TARSAL TUNNEL SYNDROME 12/14/2010 611.71 BREAST PAIN 12/14/2010 355.5 TARSAL TUNNEL SYNDROME 12/14/2010 611.71 BREAST PAIN 12/14/2010 355.5 TARSAL TUNNEL SYNDROME 12/14/2010 611.71 BREAST PAIN 12/14/2010 355.5 TARSAL TUNNEL SYNDROME 12/14/2010 611.71 BREAST PAIN 12/14/2010 SANA [facility] UNIT NURSE, CAROLE A 355.5 TARSAL TUNNEL SYNDROME 12/14/2010 SANA CORONARY CARE UNIT NURSE, CAROLE A 611.71 BREAST PAIN 12/14/2010 DAVID SNYDER APRN T 355.5 TARSAL TUNNEL SYNDROME 12/14/2010 LILLIAN HANKINS DAVID T 611.71 BREAST PAIN 12/14/2010 SALAS DO, FINN K 355.5 TARSAL TUNNEL SYNDROME 12/14/2010 SALAS DO, FINN K 611.71 BREAST PAIN 12/14/2010 SANA CORONARY CARE UNIT NURSE, CAROLE A 355.5 TARSAL TUNNEL SYNDROME 12/14/2010 SANA CORONARY CARE UNIT NURSE, CAROLE A 611.71 BREAST PAIN 01/03/2011 SALAS DO, FINN K 300.4 DYSTHYMIC DISORDER 01/03/2011 SALAS DO FINN K 339.10 TENSION TYPE HEADACHE UNSPECIFIED 01/03/2011 SALAS DO, FINN K 536.8 DYSPEPSIA AND OTHER SPECIFIED DISORDERS OF FUNCTION OF STOMACH 01/03/2011 SALAS DO, FINN K 300.4 DYSTHYMIC DISORDER 01/03/2011 SALAS DO, FINN K 339.10 TENSION TYPE HEADACHE UNSPECIFIED 01/03/2011 SALAS DO, FINN K 536.8 DYSPEPSIA AND OTHER SPECIFIED DISORDERS OF FUNCTION OF STOMACH 01/03/2011 SALAS DO, FINN K 300.4 DYSTHYMIC DISORDER 01/03/2011 SALAS DO FINN K 339.10 TENSION TYPE HEADACHE UNSPECIFIED 01/03/2011 SALAS DO, FINN K 536.8 DYSPEPSIA AND OTHER SPECIFIED DISORDERS OF FUNCTION OF STOMACH 01/03/2011 300.4 DYSTHYMIC DISORDER 01/03/2011 339.10 TENSION TYPE HEADACHE UNSPECIFIED 01/03/2011 536.8 DYSPEPSIA AND OTHER SPECIFIED DISORDERS OF FUNCTION OF STOMACH 01/03/2011 300.4 DYSTHYMIC DISORDER 01/03/2011 339.10 TENSION TYPE HEADACHE UNSPECIFIED 01/03/2011 536.8 DYSPEPSIA AND OTHER SPECIFIED DISORDERS OF FUNCTION OF STOMACH 01/03/2011 300.4 DYSTHYMIC DISORDER 01/03/2011 339.10 TENSION TYPE HEADACHE UNSPECIFIED 01/03/2011 536.8 DYSPEPSIA AND OTHER SPECIFIED DISORDERS OF FUNCTION OF STOMACH 01/03/2011 300.4 DYSTHYMIC DISORDER 01/03/2011 339.10 TENSION TYPE HEADACHE UNSPECIFIED 01/03/2011 536.8 DYSPEPSIA AND OTHER SPECIFIED DISORDERS OF FUNCTION OF STOMACH 01/03/2011 300.4 DYSTHYMIC DISORDER 01/03/2011 339.10 TENSION TYPE HEADACHE UNSPECIFIED 01/03/2011 536.8 DYSPEPSIA AND OTHER SPECIFIED DISORDERS OF FUNCTION OF STOMACH 01/03/2011 CAROLE HOOD APRN A 300.4 DYSTHYMIC DISORDER 01/03/2011 SERA HOOD APRNIDI A 339.10 TENSION TYPE HEADACHE UNSPECIFIED 01/03/2011 SERA HOOD APRNIDI A 536.8 DYSPEPSIA AND OTHER SPECIFIED DISORDERS OF FUNCTION OF STOMACH 01/03/2011 DAVID SNYDER APRN 300.4 DYSTHYMIC DISORDER 01/03/2011 DAVID SNYDER APRN 339.10 TENSION TYPE HEADACHE UNSPECIFIED 01/03/2011 DAVID SNYDER APRN 536.8 DYSPEPSIA AND OTHER SPECIFIED DISORDERS OF FUNCTION OF STOMACH 01/03/2011 SALAS DO, FINN K 300.4 DYSTHYMIC DISORDER 01/03/2011 SALAS DO, FINN K 339.10 TENSION TYPE HEADACHE UNSPECIFIED 01/03/2011 SALAS DO, FINN K 536.8 DYSPEPSIA AND OTHER SPECIFIED DISORDERS OF FUNCTION OF STOMACH 01/03/2011 SERA HOOD APRNIDI A 300.4 DYSTHYMIC DISORDER 01/03/2011 SERA HOOD APRNIDI A 339.10 TENSION TYPE HEADACHE UNSPECIFIED 01/03/2011 SERA HOOD APRNIDI A 536.8 DYSPEPSIA AND OTHER SPECIFIED DISORDERS OF FUNCTION OF STOMACH 01/18/2011 FINN SALAS DO V70.0 ROUTINE GENERAL MEDICAL EXAMINATION AT A HEALTH CARE FACILITY 01/18/2011 FINN SALAS DO V70.0 ROUTINE GENERAL MEDICAL EXAMINATION AT A HEALTH CARE FACILITY 01/18/2011 FINN SALAS DO V70.0 ROUTINE GENERAL MEDICAL EXAMINATION AT A HEALTH CARE FACILITY 01/18/2011 V70.0 ROUTINE GENERAL MEDICAL EXAMINATION AT A HEALTH CARE FACILITY 01/18/2011 V70.0 ROUTINE GENERAL MEDICAL EXAMINATION AT A HEALTH CARE FACILITY 01/18/2011 V70.0 ROUTINE GENERAL MEDICAL EXAMINATION AT A HEALTH CARE FACILITY 01/18/2011 V70.0 ROUTINE GENERAL MEDICAL EXAMINATION AT A HEALTH CARE FACILITY 01/18/2011 V70.0 ROUTINE GENERAL MEDICAL EXAMINATION AT A HEALTH CARE FACILITY 01/18/2011 CAROLE HOOD APRN V70.0 ROUTINE GENERAL MEDICAL EXAMINATION AT A HEALTH CARE FACILITY 01/18/2011 DAVID SNYDER APRN V70.0 ROUTINE GENERAL MEDICAL EXAMINATION AT A HEALTH CARE FACILITY 01/18/2011 FINN SALAS DO V70.0 ROUTINE GENERAL MEDICAL EXAMINATION AT A HEALTH CARE FACILITY 01/18/2011 CAROLE HOOD APRN V70.0 ROUTINE GENERAL MEDICAL EXAMINATION AT A HEALTH CARE FACILITY 01/21/2011 Ot 728.71 PLANTAR FIBROMATOSIS 01/21/2011 Ot V57.1 PHYSICAL THERAPY NEC 06/16/2011 Ot 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 06/16/2011 Ot 786.52 PAINFUL RESPIRATION 08/14/2011 FINN SALAS DO 787.02 NAUSEA ALONE 08/14/2011 FINN SALAS DO 787.02 NAUSEA ALONE 08/14/2011 FINN SALAS DO 787.02 NAUSEA ALONE 08/14/2011 787.02 NAUSEA ALONE 08/14/2011 787.02 NAUSEA ALONE 08/14/2011 787.02 NAUSEA ALONE 08/14/2011 787.02 NAUSEA ALONE 08/14/2011 787.02 NAUSEA ALONE 08/14/2011 CAROLE HOOD APRN 787.02 NAUSEA ALONE 08/14/2011 DAVID SNYDER APRN 787.02 NAUSEA ALONE 08/14/2011 FINN SALAS DO 787.02 NAUSEA ALONE 08/14/2011 CAROLE HOOD APRN 787.02 NAUSEA ALONE 09/23/2011 SALAS DO, FINN K 553.21 INCISIONAL HERNIA WITHOUT OBSTRUCTION OR GANGRENE 09/23/2011 SALAS DO FINN K 611.72 LUMP OR MASS IN BREAST 09/23/2011 SALAS DO, FINN K 789.05 ABDOMINAL PAIN PERIUMBILIC 09/23/2011 SALAS DO, FINN K 789.06 ABDOMINAL PAIN EPIGASTRIC 09/23/2011 SALAS DO FINN K 553.21 INCISIONAL HERNIA WITHOUT OBSTRUCTION OR GANGRENE 09/23/2011 SALAS DO, FINN K 611.72 LUMP OR MASS IN BREAST 09/23/2011 SALAS DO, FINN K 789.05 ABDOMINAL PAIN PERIUMBILIC 09/23/2011 SALAS DO FINN K 789.06 ABDOMINAL PAIN EPIGASTRIC 09/23/2011 SALAS DO, FINN K 553.21 INCISIONAL HERNIA WITHOUT OBSTRUCTION OR GANGRENE 09/23/2011 SALAS DO FINN K 611.72 LUMP OR MASS IN BREAST 09/23/2011 JOSUE MARAVILLA FINN K 789.05 ABDOMINAL PAIN PERIUMBILIC 09/23/2011 SALAS DO FINN K 789.06 ABDOMINAL PAIN EPIGASTRIC 09/23/2011 553.21 INCISIONAL HERNIA WITHOUT OBSTRUCTION OR GANGRENE 09/23/2011 611.72 LUMP OR MASS IN BREAST 09/23/2011 789.05 ABDOMINAL PAIN PERIUMBILIC 09/23/2011 789.06 ABDOMINAL PAIN EPIGASTRIC 09/23/2011 553.21 INCISIONAL HERNIA WITHOUT OBSTRUCTION OR GANGRENE 09/23/2011 611.72 LUMP OR MASS IN BREAST 09/23/2011 789.05 ABDOMINAL PAIN PERIUMBILIC 09/23/2011 789.06 ABDOMINAL PAIN EPIGASTRIC 09/23/2011 553.21 INCISIONAL HERNIA WITHOUT OBSTRUCTION OR GANGRENE 09/23/2011 611.72 LUMP OR MASS IN BREAST 09/23/2011 789.05 ABDOMINAL PAIN PERIUMBILIC 09/23/2011 789.06 ABDOMINAL PAIN EPIGASTRIC 09/23/2011 553.21 INCISIONAL HERNIA WITHOUT OBSTRUCTION OR GANGRENE 09/23/2011 611.72 LUMP OR MASS IN BREAST 09/23/2011 789.05 ABDOMINAL PAIN PERIUMBILIC 09/23/2011 789.06 ABDOMINAL PAIN EPIGASTRIC 09/23/2011 553.21 INCISIONAL HERNIA WITHOUT OBSTRUCTION OR GANGRENE 09/23/2011 611.72 LUMP OR MASS IN BREAST 09/23/2011 789.05 ABDOMINAL PAIN PERIUMBILIC 09/23/2011 789.06 ABDOMINAL PAIN EPIGASTRIC 09/23/2011 CAROLE HOOD APRN 553.21 INCISIONAL HERNIA WITHOUT OBSTRUCTION OR GANGRENE 09/23/2011 CAROLE HOOD APRN A 611.72 LUMP OR MASS IN BREAST 09/23/2011 CAROLE HOOD APRN A 789.05 ABDOMINAL PAIN PERIUMBILIC 09/23/2011 CAROLE HOOD APRN A 789.06 ABDOMINAL PAIN EPIGASTRIC 09/23/2011 DAVID SNYDER APRN 553.21 INCISIONAL HERNIA WITHOUT OBSTRUCTION OR GANGRENE 09/23/2011 DAVID SNYDER APRN 611.72 LUMP OR MASS IN BREAST 09/23/2011 DAVID SNYDER APRN 789.05 ABDOMINAL PAIN PERIUMBILIC 09/23/2011 DAVID SNYDER APRN 789.06 ABDOMINAL PAIN EPIGASTRIC 09/23/2011 FINN SALAS DO K 553.21 INCISIONAL HERNIA WITHOUT OBSTRUCTION OR GANGRENE 09/23/2011 FINN SALAS DO K 611.72 LUMP OR MASS IN BREAST 09/23/2011 PRAFUL SALAS DOA K 789.05 ABDOMINAL PAIN PERIUMBILIC 09/23/2011 PRAFUL SALAS DOA K 789.06 ABDOMINAL PAIN EPIGASTRIC 09/23/2011 CAROLE HOOD APRN A 553.21 INCISIONAL HERNIA WITHOUT OBSTRUCTION OR GANGRENE 09/23/2011 CAROLE HOOD APRN A 611.72 LUMP OR MASS IN BREAST 09/23/2011 CAROLE HOOD APRN A 789.05 ABDOMINAL PAIN PERIUMBILIC 09/23/2011 CAROLE HOOD APRN A 789.06 ABDOMINAL PAIN EPIGASTRIC 10/26/2011 Ot 530.81 ESOPHAGEAL REFLUX 10/26/2011 Ot 535.40 OTH SPECIFIED GASTRITIS,W/O MENTION OF H 10/26/2011 Ot 553.21 INCISIONAL HERNIA 10/26/2011 Ot 610.3 FIBROSCLEROSIS OF BREAST 10/26/2011 Ot 610.8 BENIGN MAMM DYSPLAS NEC 10/26/2011 Ot 614.6 FEM PELVIC PERITON ADH-POST-OP/INF 11/24/2011 Ot 611.0 INFLAM DISEASE OF BREAST 11/24/2011 Ot 998.59 OTH POSTOPER INFECTION 07/28/2012 FINN SALAS DO 611.0 MASTITIS 07/28/2012 FINN SALAS DO K 611.0 MASTITIS 07/28/2012 FINN SALAS DO K 611.0 MASTITIS 07/28/2012 611.0 MASTITIS 07/28/2012 611.0 MASTITIS 07/28/2012 611.0 MASTITIS 07/28/2012 611.0 MASTITIS 07/28/2012 611.0 MASTITIS 07/28/2012 CAROLE HOOD APRN 611.0 MASTITIS 07/28/2012 DAVID SNYDER APRN 611.0 MASTITIS 07/28/2012 FINN SALAS DO K 611.0 MASTITIS 07/28/2012 CAROLE HOOD APRN A 611.0 MASTITIS 09/23/2012 FINN SALAS DO 682.9 CELLULITIS AND ABSCESS OF UNSPECIFIED SITES 09/23/2012 FINN SALAS DO 682.9 CELLULITIS AND ABSCESS OF UNSPECIFIED SITES 09/23/2012 682.9 CELLULITIS AND ABSCESS OF UNSPECIFIED SITES 09/23/2012 682.9 CELLULITIS AND ABSCESS OF UNSPECIFIED SITES 09/23/2012 682.9 CELLULITIS AND ABSCESS OF UNSPECIFIED SITES 09/23/2012 682.9 CELLULITIS AND ABSCESS OF UNSPECIFIED SITES 09/23/2012 682.9 CELLULITIS AND ABSCESS OF UNSPECIFIED SITES 09/23/2012 CAROLE HOOD APRN A 682.9 CELLULITIS AND ABSCESS OF UNSPECIFIED SITES 09/23/2012 DAVID SNYDER APRN 682.9 CELLULITIS AND ABSCESS OF UNSPECIFIED SITES 09/23/2012 FINN SALAS DO 682.9 CELLULITIS AND ABSCESS OF UNSPECIFIED SITES 09/23/2012 CAROLE HOOD APRN A 682.9 CELLULITIS AND ABSCESS OF UNSPECIFIED SITES 10/26/2012 Ot 611.0 INFLAM DISEASE OF BREAST 02/23/2013 728.87 WEAKNESS 02/23/2013 780.4 DIZZINESS AND VERTIGO 02/23/2013 728.87 WEAKNESS 02/23/2013 780.4 DIZZINESS AND VERTIGO 02/23/2013 728.87 WEAKNESS 02/23/2013 780.4 DIZZINESS AND VERTIGO 02/23/2013 CAROLE HOOD APRN A 728.87 WEAKNESS 02/23/2013 SERA HOOD APRNIDI A 780.4 DIZZINESS AND VERTIGO 02/23/2013 LILLIAN HANKINSDAVID 728.87 WEAKNESS 02/23/2013 LILLIAN HANKINS DAVID Cowan 780.4 DIZZINESS AND VERTIGO 02/23/2013 FINN SALAS DO K 728.87 WEAKNESS 02/23/2013 PRAFUL SALAS DOA K 780.4 DIZZINESS AND VERTIGO 02/23/2013 CAROLE HOOD APRN A 728.87 WEAKNESS 02/23/2013 SERA HOOD APRNIDI A 780.4 DIZZINESS AND VERTIGO 03/21/2013 SATNAM LOONEY Ot 339.10 TENSION TYPE HEADACHE, UNSPECIFIED 03/21/2013 SATNAM LOONEY Ot 599.0 URIN TRACT INFECTION NOS 03/21/2013 SATNAM LOONEY Ot 611.0 INFLAM DISEASE OF BREAST 04/05/2013 784.0 HEADACHE 04/05/2013 CAROLE HOOD APRN A 784.0 HEADACHE 04/05/2013 DAVID SNYDER APRN Camryn 784.0 HEADACHE 04/05/2013 FINN SALAS DO K 784.0 HEADACHE 04/05/2013 SERA HOOD APRNIDI A 784.0 HEADACHE 07/18/2013 JED CURRY, TYE Cowan Ot 611.0 INFLAM DISEASE OF BREAST 07/18/2013 JED CURRY, TYE T Ot 782.2 LOCAL SUPRFICIAL SWELLNG 12/09/2013 SHAWNA NG DEAN OF INSTRUCTION Ot 739.4 SOMAT DYSFUNC SACRAL REG 12/09/2013 SHAWNA NG DEAN OF INSTRUCTION Ot V57.1 PHYSICAL THERAPY NEC 03/15/2014 TRINA CURRY, AMARJIT Harrison Ot 569.3 RECTAL ANAL HEMORRHAGE 03/15/2014 AMARJIT MENA MD Ot 787.03 VOMITING ALONE 03/15/2014 TRINA CURRY, AMARJIT Harrison Ot 787.91 DIARRHEA 03/15/2014 AMARJIT MENA MD Ot 789.01 ABDOMINAL PAIN, RIGHT UPPER QUADRANT 03/15/2014 AMARJIT MENA MD D Ot 789.03 ABDOMINAL PAIN, RIGHT LOWER QUADRANT 09/02/2014 FINN SALAS DO K 530.81 GERD 09/02/2014 JOSUE MARAVILLA FINN K 535.50 UNSPECIFIED GASTRITIS AND GASTRODUODENITIS (WITHOUT HEMORRHAGE) 09/02/2014 FINN SALAS DO K 789.00 ABDOMINAL PAIN UNSPECIFIED SITE 09/02/2014 SANACAROLE MYERS APRN A 530.81 GERD 09/02/2014 CAROLE HOOD APRN A 535.50 UNSPECIFIED GASTRITIS AND GASTRODUODENITIS (WITHOUT HEMORRHAGE) 09/02/2014 CAROLE HOOD APRN A 789.00 ABDOMINAL PAIN UNSPECIFIED SITE 10/25/2014 CAROLE HOOD APRN A 611.0 INFLAMMATORY DISEASE OF BREAST 02/16/2015 SATNAM LOONEY Ot 611.0 INFLAM DISEASE OF BREAST 02/16/2015 SATNAM LOONEY Ot 682.3 CELLULITIS OF ARM 02/16/2015 SATNAM LOONEY Ot 729.5 PAIN IN LIMB 02/18/2015 Ot 789.01 02/18/2015 Ot 729.81 02/18/2015 Ot V45.89 02/18/2015 Ot 625.9 02/18/2015 Ot 789.00 02/18/2015 Ot 355.9 02/18/2015 Ot 611.71 02/18/2015 Ot 728.71 02/18/2015 Ot V72.83 02/18/2015 Ot V74.8 02/18/2015 Ot 787.02 02/18/2015 Ot 789.00 02/18/2015 Ot V70.0 02/18/2015 Ot 789.00 02/18/2015 Ot 611.72 02/18/2015 Ot 530.81 02/18/2015 Ot 553.21 02/18/2015 Ot 611.72 02/18/2015 Ot V72.63 02/18/2015 Ot V74.8 02/18/2015 Ot 611.0 02/18/2015 Ot 276.1 02/18/2015 Ot 276.8 02/18/2015 Ot V12.09 02/18/2015 Ot 786.50 02/18/2015 Ot 611.0 02/18/2015 Ot 611.0 02/18/2015 Ot V45.89 02/18/2015 Ot 611.0 02/18/2015 Ot V72.63 02/18/2015 Ot V74.8 02/18/2015 CELE CURRY, BRAYDON Burton Ot 611.0 02/18/2015 CELE CURRY, BRAYDON Burton Ot 611.0 02/18/2015 SANASERACAROLE A CORONARY CARE UNIT NURSE Ot 611.0 02/18/2015 NORRIS BROWNLEE CORONARY CARE UNIT NURSE Ot V58.49 OTHER SPECIFIED AFTERCARE FOLLOWING SURG 03/30/2015 JED CURRY, TYE Cowan Ot 787.01 NAUSEA WITH VOMITING 03/30/2015 JED CURRY, TYE Cowan Ot 787.91 DIARRHEA 03/30/2015 JED CURRY, TYE Cowan Ot 789.01 ABDOMINAL PAIN, RIGHT UPPER QUADRANT 05/30/2015 OLIVIA ROSE DO Ot 305.1 TOBACCO USE DISORDER 05/30/2015 OLIVIA ROSE DO Ot 424.0 MITRAL VALVE DISORDER 05/30/2015 OLIVIA ROSE DO Ot 682.2 CELLULITIS OF TRUNK 05/30/2015 OLIVIA ROSE DO Ot 784.0 HEADACHE 05/30/2015 OLIVIA ROSE DO Ot F17.200 NICOTINE DEPENDENCE, UNSPECIFIED, UNCOMP 05/30/2015 Ot 789.01 05/30/2015 Ot 729.81 05/30/2015 Ot V45.89 05/30/2015 Ot 625.9 05/30/2015 Ot 789.00 05/30/2015 Ot 355.9 05/30/2015 Ot 611.71 05/30/2015 Ot 728.71 05/30/2015 Ot V72.83 05/30/2015 Ot V74.8 05/30/2015 Ot 787.02 05/30/2015 Ot 789.00 05/30/2015 Ot V70.0 05/30/2015 Ot 789.00 05/30/2015 Ot 611.72 05/30/2015 Ot 530.81 05/30/2015 Ot 553.21 05/30/2015 Ot 611.72 05/30/2015 Ot V72.63 05/30/2015 Ot V74.8 05/30/2015 Ot 611.0 05/30/2015 Ot 276.1 05/30/2015 Ot 276.8 05/30/2015 Ot V12.09 05/30/2015 Ot 786.50 05/30/2015 Ot 611.0 05/30/2015 Ot 611.0 05/30/2015 Ot V45.89 05/30/2015 Ot 611.0 05/30/2015 Ot V72.63 05/30/2015 Ot V74.8 05/30/2015 CELE CURRY, BRAYDON Burton Ot 611.0 05/30/2015 ECLE CURRY, BRAYDON Burton Ot 611.0 05/30/2015 CAROLE HOOD APRN Ot 611.0 06/12/2015 OLIVIA ROSE DO Ot 682.2 CELLULITIS OF TRUNK 06/12/2015 OLIVIA ROSE DO Ot 996.69 INFEC INFLAM REACT DUE INTRN PROSTHTIC D 06/12/2015 Ot 789.01 06/12/2015 Ot 729.81 06/12/2015 Ot V45.89 06/12/2015 Ot 625.9 06/12/2015 Ot 789.00 06/12/2015 Ot 355.9 06/12/2015 Ot 611.71 06/12/2015 Ot 728.71 06/12/2015 Ot V72.83 06/12/2015 Ot V74.8 06/12/2015 Ot 787.02 06/12/2015 Ot 789.00 06/12/2015 Ot V70.0 06/12/2015 Ot 789.00 06/12/2015 Ot 611.72 06/12/2015 Ot 530.81 06/12/2015 Ot 553.21 06/12/2015 Ot 611.72 06/12/2015 Ot V72.63 06/12/2015 Ot V74.8 06/12/2015 Ot 611.0 06/12/2015 Ot 276.1 06/12/2015 Ot 276.8 06/12/2015 Ot V12.09 06/12/2015 Ot 786.50 06/12/2015 Ot 611.0 06/12/2015 Ot 611.0 06/12/2015 Ot V45.89 06/12/2015 Ot 611.0 06/12/2015 Ot V72.63 06/12/2015 Ot V74.8 06/12/2015 CELE CURRY, BRAYDON Micheal Ot 611.0 06/12/2015 CELE CURRY, BRAYDON Burton Ot 611.0 06/12/2015 CAROLE HOOD APRN Ot 611.0 06/26/2015 [facility] DO, CHANDROUTIE Ot T85.79XS INFECT/INFLM REACT DUE TO OTH INT PROSTH 07/04/2015 [place] DO, CHANDROUTIE Ot Z48.01 07/05/2015 [place] DO, CHANDROUTIE Ot Z48.01 07/07/2015 [place] DO, CHANDROUTIE Ot Z48.01 07/08/2015 [place] DO, CHANDROUTIE Ot Z48.01 07/09/2015 [place] DO, CHANDROUTIE Ot Z48.01 07/11/2015 [facility] DO, CHANDROUTIE Ot Z48.01 07/13/2015 [facility] DO, CHANDROUTIE Ot Z48.01 07/14/2015 [place] DO, CHANDROUTIE Ot Z48.01 07/15/2015 [facility] DO, CHANDROUTIE Ot Z48.01 07/16/2015 [facility] DO, CHANDROUTIE Ot Z48.01 07/19/2015 [facility] DO, CHANDROUTIE Ot Z48.01 07/20/2015 [facility] DO, CHANDROUTIE Ot Z48.01 07/21/2015 [facility] DO, CHANDROUTIE Ot Z48.01 2015 [facility] DO, CHANDROUTIE Ot Z48.01 07/23/2015 [place] DO, CHANDROUTIE Ot Z48.01 07/25/2015 [place] DO, CHANDROUTIE Ot Z48.01 07/26/2015 [place] DO, CHANDROUTIE Ot Z48.01 07/27/2015 [place] DO, CHANDROUTIE Ot Z48.01 07/28/2015 [place] DO, CHANDROUTIE Ot Z48.01 07/29/2015 [place] DO, CHANDROUTIE Ot Z48.01 07/30/2015 [place] DO, CHANDROUTIE Ot Z48.01 07/31/2015 [place] DO, CHANDROUTIE Ot Z48.01 08/01/2015 [place] DO, CHANDROUTIE Ot Z48.01 08/03/2015 [place] DO, CHANDROUTIE Ot Z48.01 08/04/2015 [place] DO, CHANDROUTIE Ot Z48.01 08/05/2015 [place] DO, CHANDROUTIE Ot Z48.01 08/06/2015 [place] DO, CHANDROUTIE Ot Z48.01 08/08/2015 [place] DO, CHANDROUTIE Ot Z48.01 08/09/2015 [place] DO, CHANDROUTIE Ot Z48.01 08/10/2015 [place] DO, CHANDROUTIE Ot Z48.01 08/11/2015 [place] DO, CHANDROUTIE Ot Z48.01 08/12/2015 [place] DO, CHANDROUTIE Ot Z48.01 08/13/2015 [place] DO, CHANDROUTIE Ot Z48.01 08/15/2015 [place] DO, CHANDROUTIE Ot Z48.01 08/16/2015 [place] DO, CHANDROUTIE Ot Z48.01 08/17/2015 [place] DO, CHANDROUTIE Ot Z48.01 08/18/2015 [place] DO, CHANDROUTIE Ot Z48.01 08/19/2015 [place] DO, CHANDROUTIE Ot Z48.01 08/19/2015 [place] DO, CHANDROUTIE Ot Z48.01 08/20/2015 [place] DO, CHANDROUTIE Ot Z48.01 08/21/2015 [place] DO, CHANDROUTIE Ot Z48.01 08/22/2015 [place] DO, CHANDROUTIE Ot Z48.01 08/23/2015 [place] DO, CHANDROUTIE Ot Z48.01 08/24/2015 [place] DO, CHANDROUTIE Ot Z48.01 08/25/2015 [place] DO, CHANDROUTIE Ot Z48.01 08/26/2015 [place] DO, CHANDROUTIE Ot Z48.01 08/27/2015 [place] DO, CHANDROUTIE Ot Z48.01 08/27/2015 [place] DO, CHANDROUTIE Ot Z48.01 08/28/2015 [place] DO, CHANDROUTIE Ot Z48.01 08/29/2015 [place] DO, CHANDROUTIE Ot Z48.01 08/30/2015 [place] DO, CHANDROUTIE Ot Z48.01 09/01/2015 [place] DO, CHANDROUTIE Ot Z48.01 09/02/2015 [place] DO, CHANDROUTIE Ot Z48.01 09/02/2015 [place] DO, CHANDROUTIE Ot Z48.01 09/03/2015 [place] DO, CHANDROUTIE Ot Z48.01 09/04/2015 MILTON DO, CHANDROUTIE Ot Z48.01 09/05/2015 MILTON DO, CHANDROUTIE Ot Z48.01 09/06/2015 MILTON DO, CHANDROUTIE Ot Z48.01 09/07/2015 MILTON DO, CHANDROUTIE Ot Z48.01 09/08/2015 MILTON DO, CHANDROUTIE Ot Z48.01 09/09/2015 MILTON DO, CHANDROUTIE Ot Z48.01 09/11/2015 MILTON DO, CHANDROUTIE Ot Z48.01 09/12/2015 MILTON DO, CHANDROUTIE Ot Z48.01 09/12/2015 Ot T85.79XS 09/12/2015 Ot Z01.812 09/12/2015 Ot Z11.2 09/13/2015 MILTON DO, CHANDROUTIE Ot Z48.01 09/15/2015 MILTON DO, CHANDROUTIE Ot Z48.01 09/16/2015 MILTON DO, CHANDROUTIE Ot Z48.01 09/16/2015 MILTON DO, CHANDROUTIE Ot Z48.01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 SKIN/ SITES LIMITE 04/02/2017 NATALIA MORENO DO Ot T81.31XA DISRUPTION OF EXTERNAL OPERATION (SURGIC 04/16/2017 CELE CURRY, BRAYDON Burton Ot R10.9 UNSPECIFIED ABDOMINAL PAIN 04/16/2017 CELE CURRY, BRAYDON Burton Ot Z98.890 OTHER SPECIFIED POSTPROCEDURAL STATES 05/11/2017 Ot 611.0 INFLAM DISEASE OF BREAST 05/11/2017 Ot 276.1 HYPOSMOLALITY 05/11/2017 Ot 276.8 HYPOPOTASSEMIA 05/11/2017 Ot V12.09 PERSONAL HISTORY OTH SPEC INFECT ANDRES 05/11/2017 Ot 786.50 CHEST PAIN NOS 05/11/2017 Ot 611.0 INFLAM DISEASE OF BREAST 05/11/2017 CELE CURRY, BRAYDON Burton Ot 611.0 INFLAM DISEASE OF BREAST 05/11/2017 CELE CURRY, BRAYDON Burton Ot 611.0 INFLAM DISEASE OF BREAST 05/11/2017 CAROLE HOOD CORONARY CARE UNIT NURSE Ot 611.0 INFLAM DISEASE OF BREAST 05/11/2017 SHAWNA NG DEAN OF INSTRUCTION Ot V70.0 ROUTINE MEDICAL EXAM 05/11/2017 RACHEL CARRERA MD Ot R10.9 UNSPECIFIED ABDOMINAL PAIN 05/11/2017 RACHEL CARRERA MD Ot L92.8 OTH GRANULOMATOUS DISORDERS OF THE SKIN, 05/11/2017 RACHEL CARRERA MD Ot L98.491 NON-PRS CHRONIC ULCER SKIN/ SITES LIMITE 05/11/2017 RACHEL CARRERA MD Ot T81.31XA DISRUPTION OF EXTERNAL OPERATION (SURGIC 05/11/2017 NATALIA MORENO DO Ot L92.8 OTH GRANULOMATOUS DISORDERS OF THE SKIN, 05/11/2017 NATALIA MORENO DO Ot L98.491 NON-PRS CHRONIC ULCER SKIN/ SITES LIMITE 05/11/2017 NATALIA MORENO DO Ot T81.31XA DISRUPTION OF EXTERNAL OPERATION (SURGIC 05/12/2017 Ot 611.0 INFLAM DISEASE OF BREAST 05/12/2017 Ot V45.89 POSTSURGICAL STATES NEC 05/12/2017 Ot 611.0 INFLAM DISEASE OF BREAST 05/12/2017 Ot V72.63 PRE- PROCEDURAL LABORATORY EXAMINATION 05/12/2017 Ot V74.8 SCREEN- BACTERIAL DIS NEC 05/12/2017 CELE CURRY, BRAYDON Burton Ot K43.9 VENTRAL HERNIA WITHOUT OBSTRUCTION OR GA 05/12/2017 BRAYDON OAKLEY MD Ot 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 05/12/2017 BRAYDON OAKLEY MD Ot R10.9 UNSPECIFIED ABDOMINAL PAIN 05/12/2017 BRAYDON OAKLEY MD Ot Z98.890 OTHER SPECIFIED POSTPROCEDURAL STATES 05/12/2017 MILTONOLIVIA DELGADO DO Ot Z48.01 ENCOUNTER FOR CHANGE OR REMOVAL OF SURGI 05/15/2017 BRAYDON OAKLEY MD Ot F17.210 NICOTINE DEPENDENCE, CIGARETTES, UNCOMPL 05/15/2017 BRAYDON OAKLEY MD Ot F32.9 MAJOR DEPRESSIVE DISORDER, SINGLE EPISOD 05/15/2017 BRAYDON OAKLEY MD Ot F90.9 ATTENTION-DEFICIT HYPERACTIVITY DISORDER 05/15/2017 BRAYDON OAKLEY MD Ot I34.1 NONRHEUMATIC MITRAL (VALVE) PROLAPSE 05/15/2017 BRAYDON OAKLEY MD Ot 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 05/15/2017 BRAYDON OAKLEY MD Ot L02.211 CUTANEOUS ABSCESS OF ABDOMINAL WALL 05/15/2017 BRAYDON OAKLEY MD Ot Z90.49 ACQUIRED ABSENCE OF OTHER SPECIFIED PART 05/21/2017 FABI ABDALLA DO Ot Z48.01 ENCOUNTER FOR CHANGE OR REMOVAL OF SURGI 05/21/2017 FABI ABDALLA DO Ot L02.91 CUTANEOUS ABSCESS, UNSPECIFIED 06/14/2017 FABI ABDALLA DO Ot Z48.01 ENCOUNTER FOR CHANGE OR REMOVAL OF SURGI 06/14/2017 GELLENDER DO, FABI Raines Ot L02.211 CUTANEOUS ABSCESS OF ABDOMINAL WALL 06/18/2017 GELLENDER DO, FABI Raines Ot Z48.01 ENCOUNTER FOR CHANGE OR REMOVAL OF SURGI 06/18/2017 GELLENDER DO, FABI Raines Ot L02.211 CUTANEOUS ABSCESS OF ABDOMINAL WALL 07/07/2017 GELLENDER DO, FABI Raines Ot Z48.01 ENCOUNTER FOR CHANGE OR REMOVAL OF SURGI 07/07/2017 GELLENDER DO, FABI Raines Ot L02.91 CUTANEOUS ABSCESS, UNSPECIFIED 07/13/2017 CELE CURRY, BRAYDON Burton Ot K43.9 VENTRAL HERNIA WITHOUT OBSTRUCTION OR GA 07/13/2017 CELE CURRY, BRAYDON Burton Ot Z90.49 ACQUIRED ABSENCE OF OTHER SPECIFIED PART 2017 CELE CURRY, BRAYDON Burton Ot K43.9 VENTRAL HERNIA WITHOUT OBSTRUCTION OR GA 2017 CELE CURRY, BRAYDON Burton Ot Z90.49 ACQUIRED ABSENCE OF OTHER SPECIFIED PART Procedures Code Description [place] [address] THERAPUTIC INJ SQ/IM 07/28/2012 J0696 ROCEPHIN INJ 07/28/2012 43234 ROUTINE VENIPUNCTURE 09/23/2012 17386 US BREAST ULTRASOUND, LEFT 09/23/2012 73353 CBC 09/23/2012 BRAYDON OWENS 09/23/2012 56847 EKG, TRACING (IN-HOUSE) 02/23/2013 45432 ROUTINE VENIPUNCTURE 02/26/2013 27084 A1C (IN-HOUSE) 02/26/2013 95029 CMP 02/26/2013 06539 VITAMIN D 25-HYDROXY (D2,D3 , TOTAL) 02/26/2013 89545 TSH 02/26/2013 54199 CBC 02/26/2013 33617 US BREAST ULTRASOUND, LEFT 04/19/2013 28390 US GUIDE FOR BIOPSY 04/19/2013 56166 MAMMOGRAM DX, FRED 04/19/2013 47646 US BREAST ULTRASOUND, LEFT 05/04/2013 49395 MAMMOGRAM DX, FRED 05/04/2013 62758 US GUIDE FOR BIOPSY 05/05/2013 92637 THERAPUTIC INJ SQ/IM 08/25/2013 J1885 TORADOL INJ 08/25/2013 J2930 SOLUMEDROL INJ 08/25/2013 16560 MAMMOGRAM DX, FRED 09/24/2013 GENERAL S NATALIA MORENO 09/02/2014 39050 MAMMOGRAM DX, LEFT 10/25/2014 59671 CULTURE WOUND (AEROBIC) 10/29/2014 [id number] EXTIRPATION OF MATTER FROM SMALL INTESTI 10/30/2016 [id number] RESECTION OF SMALL INTESTINE, OPEN APPRO 10/30/2016 [id number] DRAINAGE OF ABDOMINAL WALL , OPEN APPROAC 05/12/2017 Results Test Result Range Bacteria identification in isolate by anaerobe culture - 05/10/16 10:00 Bacteria identification in isolate by anaerobe culture NOANA NRG Gram stain microscopy - 05/10/16 10:00 GRAM STAIN RESULT NO WBC'S OR BACTERIA OBSERVED NRG Bacteria identification in wound by culture - 05/10/16 10:00 Bacteria identification in wound by culture [id number] NRG FREE TEXT EXTERNAL SENSITIVITY REPORTED 05/14/16 7:25 NRG QUANTITY OF GROWTH Scant Growth NRG Bacterial susceptibility panel - 05/10/16 10:00 Oxacillin susceptibility test by minimum inhibitory concentration < = NRG Gentamicin susceptibility test by minimum inhibitory concentration < = NRG Clindamycin susceptibility test by minimum inhibitory concentration >= NRG Erythromycin susceptibility test by minimum inhibitory concentration >= NRG Trimethoprim/sulfamethoxazole susceptibility test by minimum inhibitoryconcentration 20 NRG Vancomycin susceptibility test by minimum inhibitory concentration 1 NRG Levofloxacin susceptibility test by minimum inhibitory concentration <= NRG Rifampin susceptibility test by minimum inhibitory concentration <= NRG Tetracycline susceptibility test by minimum inhibitory concentration <= NRG Gram stain microscopy - 07/12/16 23:50 GRAM STAIN RESULT FEW GRAM POSITIVE COCCI RESEMBLING STAPH NRG Bacteria identification in wound by culture - 07/12/16 23:50 Bacteria identification in wound by culture [id number] NRG FREE TEXT EXTERNAL SENSITIVITY REPORTED 07/14/16 12:05 NRG QUANTITY OF GROWTH Moderate Growth NRG Bacterial susceptibility panel - 07/12/16 23:50 Oxacillin susceptibility test by minimum inhibitory concentration < = NRG Gentamicin susceptibility test by minimum inhibitory concentration < = NRG Clindamycin susceptibility test by minimum inhibitory concentration >= NRG Erythromycin susceptibility test by minimum inhibitory concentration >= NRG Trimethoprim/sulfamethoxazole susceptibility test by minimum inhibitoryconcentration <= NRG Vancomycin susceptibility test by minimum inhibitory concentration < = NRG Levofloxacin susceptibility test by minimum inhibitory concentration <= NRG Rifampin susceptibility test by minimum inhibitory concentration <= NRG Tetracycline susceptibility test by minimum inhibitory concentration <= NRG Complete blood count (CBC) with automated white blood cell (WBC) differential - 10/24/16 11:00 Blood leukocytes automated count (number/volume) 9.8 10*3/uL 4.3-11.0 Blood erythrocytes automated count (number/volume) 4.71 10*6/uL 4.35-5.85 Venous blood hemoglobin measurement (mass/volume) 14.8 g/dL 11.5-16.0 Blood hematocrit (volume fraction) 44 % 35-52 Automated erythrocyte mean corpuscular volume 93 [foz_us] 80-99 Automated erythrocyte mean corpuscular hemoglobin (mass per erythrocyte) 31 pg 25-34 Automated erythrocyte mean corpuscular hemoglobin concentration measurement ( mass/volume) 34 g/dL 32-36 Automated erythrocyte distribution width ratio 12.4 % 10.0-14.5 Automated blood platelet count (count/volume) 204 10*3/uL 130-400 Automated blood platelet mean volume measurement 10.4 [foz_us] 7.4-10.4 Automated blood neutrophils/100 leukocytes 67 % 42-75 Automated blood lymphocytes/100 leukocytes 25 % 12-44 Blood monocytes/100 leukocytes 6 % 0-12 Automated blood eosinophils/100 leukocytes 1 % 0-10 Automated blood basophils/100 leukocytes 0 % 0-10 Blood neutrophils automated count (number/volume) 6.6 10*3 1.8-7.8 Blood lymphocytes automated count (number/volume) 2.5 10*3 1.0-4.0 Blood monocytes automated count (number/volume) 0.6 10*3 0.0-1.0 Automated eosinophil count 0.1 10*3/uL 0.0-0.3 Automated blood basophil count (count/volume) 0.0 10*3/uL 0.0-0.1 Methicillin resistant Staphylococcus aureus (MRSA) screening culture - 11:00 Methicillin resistant Staphylococcus aureus (MRSA) screening culture NEG NRG Complete urinalysis with reflex to culture - 01/21/17 23:27 Urine color determination LIANNA NRG Urine clarity determination SLIGHTLY CLOUDY NRG Urine pH measurement by test strip 5 5-9 Specific gravity of urine by test strip 1.030 1.016- 1.022 Urine protein assay by test strip, semi-quantitative 2+ NEGATIVE Urine glucose detection by automated test strip NEGATIVE NEGATIVE Erythrocytes detection in urine sediment by light microscopy NEGATIVE NEGATIVE Urine ketones detection by automated test strip 1+ NEGATIVE Urine nitrite detection by test strip NEGATIVE NEGATIVE Urine total bilirubin detection by test strip NEGATIVE NEGATIVE Urine urobilinogen measurement by automated test strip (mass/volume) 4 mg/dL NORMAL Urine leukocyte esterase detection by dipstick 2+ NEGATIVE Automated urine sediment erythrocyte count by microscopy (number/high power field) NONE NRG Automated urine sediment leukocyte count by microscopy (number/high power field ) [HPF] NRG Bacteria detection in urine sediment by light microscopy FEW NRG Squamous epithelial cells detection in urine sediment by light microscopy 0-2 NRG Crystals detection in urine sediment by light microscopy NONE NRG Casts detection in urine sediment by light microscopy NONE NRG Mucus detection in urine sediment by light microscopy LARGE NRG Complete urinalysis with reflex to culture YES NRG Bacterial urine culture - 01/21/17 23:27 URINE CULTURE RESULTS <10,000/ML NRG Complete blood count (CBC) with automated white blood cell (WBC) differential - 01/21/17 23:32 Blood leukocytes automated count (number/volume) 12.0 10*3/uL 4.3-11.0 Blood erythrocytes automated count (number/volume) 4.71 10*6/uL 4.35-5.85 Venous blood hemoglobin measurement (mass/volume) 14.8 g/dL 11.5-16.0 Blood hematocrit (volume fraction) 44 % 35-52 Automated erythrocyte mean corpuscular volume 92 [foz_us] 80-99 Automated erythrocyte mean corpuscular hemoglobin (mass per erythrocyte) 31 pg 25-34 Automated erythrocyte mean corpuscular hemoglobin concentration measurement ( mass/volume) 34 g/dL 32-36 Automated erythrocyte distribution width ratio 12.4 % 10.0-14.5 Automated blood platelet count (count/volume) 220 10*3/uL 130-400 Automated blood platelet mean volume measurement 10.2 [foz_us] 7.4-10.4 Automated blood neutrophils/100 leukocytes 64 % 42-75 Automated blood lymphocytes/100 leukocytes 26 % 12-44 Blood monocytes/100 leukocytes 8 % 0-12 Automated blood eosinophils/100 leukocytes 1 % 0-10 Automated blood basophils/100 leukocytes 0 % 0-10 Blood neutrophils automated count (number/volume) 7.7 10*3 1.8-7.8 Blood lymphocytes automated count (number/volume) 3.1 10*3 1.0-4.0 Blood monocytes automated count (number/volume) 1.0 10*3 0.0-1.0 Automated eosinophil count 0.2 10*3/uL 0.0-0.3 Automated blood basophil count (count/volume) 0.0 10*3/uL 0.0-0.1 Comprehensive metabolic panel - 01/21/17 23:32 Serum or plasma sodium measurement (moles/volume) 142 mmol/L 135-145 Serum or plasma potassium measurement (moles/volume) 3.6 mmol/L 3.6-5.0 Serum or plasma chloride measurement (moles/volume) 104 mmol/L 98-107 Carbon dioxide 27 mmol/L 21-32 Serum or plasma anion gap determination (moles/volume) 11 mmol/L 5-14 Serum or plasma urea nitrogen measurement (mass/volume) 10 mg/dL 7-18 Serum or plasma creatinine measurement (mass/volume) 1.02 mg/dL 0.60-1.30 Serum or plasma urea nitrogen/creatinine mass ratio 10 NRG Serum or plasma creatinine measurement with calculation of estimated glomerular filtration rate > NRG Serum or plasma glucose measurement (mass/volume) 100 mg/dL 70-105 Serum or plasma calcium measurement (mass/volume) 9.6 mg/dL 8.5-10.1 Serum or plasma total bilirubin measurement (mass/volume) 0.4 mg/dL 0.1-1.0 Serum or plasma alkaline phosphatase measurement (enzymatic activity/volume) 80 U/L 40-136 Serum or plasma aspartate aminotransferase measurement (enzymatic activity/ volume) 18 U/L 5-34 Serum or plasma alanine aminotransferase measurement (enzymatic activity/volume ) 26 U/L 0-55 Serum or plasma protein measurement (mass/volume) 7.3 g/dL 6.4-8.2 Serum or plasma albumin measurement (mass/volume) 4.3 g/dL 3.2-4.5 Gram stain microscopy - 01/22/17 00:16 GRAM STAIN RESULT FEW WBC'S, NO BACTERIA OBSERVED NRG Bacteria identification in wound by culture - 01/22/17 00:16 Bacteria identification in wound by culture [id number] NRG FREE TEXT EXTERNAL SENSITIVITY REPORTED AT 1556, 5-17 NRG QUANTITY OF GROWTH Moderate Growth NRG MRSA AGAR Screening test for MRSA is NEGATIVE (Final to follow) NR Bacterial susceptibility panel - 01/22/17 00:16 Oxacillin susceptibility test by minimum inhibitory concentration < = NRG Gentamicin susceptibility test by minimum inhibitory concentration < = NRG Clindamycin susceptibility test by minimum inhibitory concentration >= NRG Erythromycin susceptibility test by minimum inhibitory concentration >= NRG Trimethoprim/sulfamethoxazole susceptibility test by minimum inhibitoryconcentration 20 NRG Vancomycin susceptibility test by minimum inhibitory concentration < = NRG Levofloxacin susceptibility test by minimum inhibitory concentration <= NRG Rifampin susceptibility test by minimum inhibitory concentration <= NRG Tetracycline susceptibility test by minimum inhibitory concentration <= NRG Bacterial blood culture - 01/22/17 02:20 Bacterial blood culture NG NRG Bacterial blood culture - 01/22/17 02:24 Bacterial blood culture NG NRG Blood lactic acid measurement (moles/volume) - 01/22/17 02:30 Blood lactic acid measurement (moles/volume) 0.75 mmol/L 0.50-2.00 Complete blood count (CBC) with automated white blood cell (WBC) differential - 01/28/17 23:23 Blood leukocytes automated count (number/volume) 11.1 10*3/uL 4.3-11.0 Blood erythrocytes automated count (number/volume) 4.36 10*6/uL 4.35-5.85 Venous blood hemoglobin measurement (mass/volume) 13.5 g/dL 11.5-16.0 Blood hematocrit (volume fraction) 41 % 35-52 Automated erythrocyte mean corpuscular volume 94 [foz_us] 80-99 Automated erythrocyte mean corpuscular hemoglobin (mass per erythrocyte) 31 pg 25-34 Automated erythrocyte mean corpuscular hemoglobin concentration measurement ( mass/volume) 33 g/dL 32-36 Automated erythrocyte distribution width ratio 12.2 % 10.0-14.5 Automated blood platelet count (count/volume) 257 10*3/uL 130-400 Automated blood platelet mean volume measurement 9.7 [foz_us] 7.4-10.4 Automated blood neutrophils/100 leukocytes 62 % 42-75 Automated blood lymphocytes/100 leukocytes 25 % 12-44 Blood monocytes/100 leukocytes 9 % 0-12 Automated blood eosinophils/100 leukocytes 3 % 0-10 Automated blood basophils/100 leukocytes 0 % 0-10 Blood neutrophils automated count (number/volume) 6.9 10*3 1.8-7.8 Blood lymphocytes automated count (number/volume) 2.8 10*3 1.0-4.0 Blood monocytes automated count (number/volume) 1.0 10*3 0.0-1.0 Automated eosinophil count 0.3 10*3/uL 0.0-0.3 Automated blood basophil count (count/volume) 0.0 10*3/uL 0.0-0.1 Comprehensive metabolic panel - 01/28/17 23:23 Serum or plasma sodium measurement (moles/volume) 143 mmol/L 135-145 Serum or plasma potassium measurement (moles/volume) 3.3 mmol/L 3.6-5.0 Serum or plasma chloride measurement (moles/volume) 105 mmol/L 98-107 Carbon dioxide 26 mmol/L 21-32 Serum or plasma anion gap determination (moles/volume) 12 mmol/L 5-14 Serum or plasma urea nitrogen measurement (mass/volume) 12 mg/dL 7-18 Serum or plasma creatinine measurement (mass/volume) 0.91 mg/dL 0.60-1.30 Serum or plasma urea nitrogen/creatinine mass ratio 13 NRG Serum or plasma creatinine measurement with calculation of estimated glomerular filtration rate > NRG Serum or plasma glucose measurement (mass/volume) 98 mg/dL 70-105 Serum or plasma calcium measurement (mass/volume) 9.4 mg/dL 8.5-10.1 Serum or plasma total bilirubin measurement (mass/volume) 0.3 mg/dL 0.1-1.0 Serum or plasma alkaline phosphatase measurement (enzymatic activity/volume) 70 U/L 40-136 Serum or plasma aspartate aminotransferase measurement (enzymatic activity/ volume) 15 U/L 5-34 Serum or plasma alanine aminotransferase measurement (enzymatic activity/volume ) 20 U/L 0-55 Serum or plasma protein measurement (mass/volume) 6.9 g/dL 6.4-8.2 Serum or plasma albumin measurement (mass/volume) 4.0 g/dL 3.2-4.5 Serum or plasma C reactive protein measurement (mass/volume) - 01/28/17 23:23 Serum or plasma C reactive protein measurement (mass/volume) 2.42 mg /dL 0.00-0.50 Complete blood count (CBC) with automated white blood cell (WBC) differential - 05/12/17 00:20 Blood leukocytes automated count (number/volume) 14.7 10*3/uL 4.3-11.0 Blood erythrocytes automated count (number/volume) 4.43 10*6/uL 4.35-5.85 Venous blood hemoglobin measurement (mass/volume) 13.5 g/dL 11.5-16.0 Blood hematocrit (volume fraction) 41 % 35-52 Automated erythrocyte mean corpuscular volume 92 [foz_us] 80-99 Automated erythrocyte mean corpuscular hemoglobin (mass per erythrocyte) 31 pg 25-34 Automated erythrocyte mean corpuscular hemoglobin concentration measurement ( mass/volume) 33 g/dL 32-36 Automated erythrocyte distribution width ratio 12.0 % 10.0-14.5 Automated blood platelet count (count/volume) 226 10*3/uL 130-400 Automated blood platelet mean volume measurement 10.0 [foz_us] 7.4-10.4 Automated blood neutrophils/100 leukocytes 77 % 42-75 Automated blood lymphocytes/100 leukocytes 13 % 12-44 Blood monocytes/100 leukocytes 9 % 0-12 Automated blood eosinophils/100 leukocytes 1 % 0-10 Automated blood basophils/100 leukocytes 0 % 0-10 Blood neutrophils automated count (number/volume) 11.3 10*3 1.8-7.8 Blood lymphocytes automated count (number/volume) 2.0 10*3 1.0-4.0 Blood monocytes automated count (number/volume) 1.3 10*3 0.0-1.0 Automated eosinophil count 0.1 10*3/uL 0.0-0.3 Automated blood basophil count (count/volume) 0.0 10*3/uL 0.0-0.1 Blood lactic acid measurement (moles/volume) - 05/12/17 00:20 Blood lactic acid measurement (moles/volume) 0.70 mmol/L 0.50-2.00 Comprehensive metabolic panel - 05/12/17 00:20 Serum or plasma sodium measurement (moles/volume) 141 mmol/L 135-145 Serum or plasma potassium measurement (moles/volume) 3.6 mmol/L 3.6-5.0 Serum or plasma chloride measurement (moles/volume) 106 mmol/L 98-107 Carbon dioxide 22 mmol/L 21-32 Serum or plasma anion gap determination (moles/volume) 13 mmol/L 5-14 Serum or plasma urea nitrogen measurement (mass/volume) 12 mg/dL 7-18 Serum or plasma creatinine measurement (mass/volume) 0.86 mg/dL 0.60-1.30 Serum or plasma urea nitrogen/creatinine mass ratio 14 NRG Serum or plasma creatinine measurement with calculation of estimated glomerular filtration rate > NRG Serum or plasma glucose measurement (mass/volume) 109 mg/dL 70-105 Serum or plasma calcium measurement (mass/volume) 9.4 mg/dL 8.5-10.1 Serum or plasma total bilirubin measurement (mass/volume) 0.4 mg/dL 0.1-1.0 Serum or plasma alkaline phosphatase measurement (enzymatic activity/volume) 90 U/L 40-136 Serum or plasma aspartate aminotransferase measurement (enzymatic activity/ volume) 16 U/L 5-34 Serum or plasma alanine aminotransferase measurement (enzymatic activity/volume ) 19 U/L 0-55 Serum or plasma protein measurement (mass/volume) 7.5 g/dL 6.4-8.2 Serum or plasma albumin measurement (mass/volume) 4.0 g/dL 3.2-4.5 Serum or plasma phosphate measurement (mass/volume) - 05/12/17 00:20 Serum or plasma phosphate measurement (mass/volume) 1.7 mg/dL 2.3-4.7 Magnesium - 05/12/17 00:20 Magnesium 1.9 mg/dL 1.8-2.4 Lipase - 05/12/17 00:20 Lipase 12 U/L 8-78 Complete urinalysis with reflex to culture - 05/12/17 02:10 Urine color determination YELLOW NRG Urine clarity determination CLEAR NRG Urine pH measurement by test strip 8 5-9 Specific gravity of urine by test strip 1.010 1.016- 1.022 Urine protein assay by test strip, semi-quantitative 1+ NEGATIVE Urine glucose detection by automated test strip NEGATIVE NEGATIVE Erythrocytes detection in urine sediment by light microscopy NEGATIVE NEGATIVE Urine ketones detection by automated test strip NEGATIVE NEGATIVE Urine nitrite detection by test strip NEGATIVE NEGATIVE Urine total bilirubin detection by test strip NEGATIVE NEGATIVE Urine urobilinogen measurement by automated test strip (mass/volume) NORMAL NORMAL Urine leukocyte esterase detection by dipstick 1+ NEGATIVE Automated urine sediment erythrocyte count by microscopy (number/high power field) RARE NRG Automated urine sediment leukocyte count by microscopy (number/high power field ) RARE NRG Bacteria detection in urine sediment by light microscopy NEGATIVE NRG Squamous epithelial cells detection in urine sediment by light microscopy 5-10 NRG Crystals detection in urine sediment by light microscopy NONE NRG Casts detection in urine sediment by light microscopy NONE NRG Mucus detection in urine sediment by light microscopy NEGATIVE NRG Complete urinalysis with reflex to culture NO NRG Complete blood count (CBC) with automated white blood cell (WBC) differential - 05/12/17 05:45 Blood leukocytes automated count (number/volume) 13.6 10*3/uL 4.3-11.0 Blood erythrocytes automated count (number/volume) 4.04 10*6/uL 4.35-5.85 Venous blood hemoglobin measurement (mass/volume) 12.4 g/dL 11.5-16.0 Blood hematocrit (volume fraction) 37 % 35-52 Automated erythrocyte mean corpuscular volume 92 [foz_us] 80-99 Automated erythrocyte mean corpuscular hemoglobin (mass per erythrocyte) 31 pg 25-34 Automated erythrocyte mean corpuscular hemoglobin concentration measurement ( mass/volume) 33 g/dL 32-36 Automated erythrocyte distribution width ratio 12.0 % 10.0-14.5 Automated blood platelet count (count/volume) 201 10*3/uL 130-400 Automated blood platelet mean volume measurement 10.3 [foz_us] 7.4-10.4 Automated blood neutrophils/100 leukocytes 75 % 42-75 Automated blood lymphocytes/100 leukocytes 15 % 12-44 Blood monocytes/100 leukocytes 10 % 0-12 Automated blood eosinophils/100 leukocytes 0 % 0-10 Automated blood basophils/100 leukocytes 0 % 0-10 Blood neutrophils automated count (number/volume) 10.2 10*3 1.8-7.8 Blood lymphocytes automated count (number/volume) 2.0 10*3 1.0-4.0 Blood monocytes automated count (number/volume) 1.3 10*3 0.0-1.0 Automated eosinophil count 0.1 10*3/uL 0.0-0.3 Automated blood basophil count (count/volume) 0.0 10*3/uL 0.0-0.1 Whole blood basic metabolic panel - 05/12/17 05:45 Serum or plasma sodium measurement (moles/volume) 140 mmol/L 135-145 Serum or plasma potassium measurement (moles/volume) 3.8 mmol/L 3.6-5.0 Serum or plasma chloride measurement (moles/volume) 109 mmol/L 98-107 Carbon dioxide 21 mmol/L 21-32 Serum or plasma anion gap determination (moles/volume) 10 mmol/L 5-14 Serum or plasma urea nitrogen measurement (mass/volume) 9 mg/dL 7-18 Serum or plasma creatinine measurement (mass/volume) 0.76 mg/dL 0.60-1.30 Serum or plasma urea nitrogen/creatinine mass ratio 12 NRG Serum or plasma creatinine measurement with calculation of estimated glomerular filtration rate > NRG Serum or plasma glucose measurement (mass/volume) 91 mg/dL 70-105 Serum or plasma calcium measurement (mass/volume) 8.5 mg/dL 8.5-10.1 Serum or plasma phosphate measurement (mass/volume) - 05/12/17 05:45 Serum or plasma phosphate measurement (mass/volume) 2.2 mg/dL 2.3-4.7 Gram stain microscopy - 05/12/17 08:00 GRAM STAIN RESULT FEW GRAM POSITIVE COCCI RESEMBLING STAPH NR Bacteria identification in wound by culture - 05/12/17 08:00 Bacteria identification in wound by culture [id number] NR FREE TEXT EXTERNAL SENSITIVITY REPORTED 05/14/17 7:30 NRG QUANTITY OF GROWTH Scant Growth NR Bacterial susceptibility panel - 05/12/17 08:00 Oxacillin susceptibility test by minimum inhibitory concentration > = NRG Gentamicin susceptibility test by minimum inhibitory concentration < = NRG Clindamycin susceptibility test by minimum inhibitory concentration 0.5 NRG Erythromycin susceptibility test by minimum inhibitory concentration <= NRG Trimethoprim/sulfamethoxazole susceptibility test by minimum inhibitoryconcentration <= NRG Vancomycin susceptibility test by minimum inhibitory concentration < = NRG Levofloxacin susceptibility test by minimum inhibitory concentration <= NRG Rifampin susceptibility test by minimum inhibitory concentration <= NRG Tetracycline susceptibility test by minimum inhibitory concentration <= NRG Methicillin resistant Staphylococcus aureus (MRSA) screening culture - 14:36 Methicillin resistant Staphylococcus aureus (MRSA) screening culture NEG NRG Complete blood count (CBC) with automated white blood cell (WBC) differential - 05/13/17 05:30 Blood leukocytes automated count (number/volume) 12.5 10*3/uL 4.3-11.0 Blood erythrocytes automated count (number/volume) 4.14 10*6/uL 4.35-5.85 Venous blood hemoglobin measurement (mass/volume) 12.8 g/dL 11.5-16.0 Blood hematocrit (volume fraction) 38 % 35-52 Automated erythrocyte mean corpuscular volume 93 [foz_us] 80-99 Automated erythrocyte mean corpuscular hemoglobin (mass per erythrocyte) 31 pg 25-34 Automated erythrocyte mean corpuscular hemoglobin concentration measurement ( mass/volume) 33 g/dL 32-36 Automated erythrocyte distribution width ratio 12.0 % 10.0-14.5 Automated blood platelet count (count/volume) 192 10*3/uL 130-400 Automated blood platelet mean volume measurement 9.8 [foz_us] 7.4-10.4 Automated blood neutrophils/100 leukocytes 82 % 42-75 Automated blood lymphocytes/100 leukocytes 10 % 12-44 Blood monocytes/100 leukocytes 8 % 0-12 Automated blood eosinophils/100 leukocytes 1 % 0-10 Automated blood basophils/100 leukocytes 0 % 0-10 Blood neutrophils automated count (number/volume) 10.3 10*3 1.8-7.8 Blood lymphocytes automated count (number/volume) 1.2 10*3 1.0-4.0 Blood monocytes automated count (number/volume) 1.0 10*3 0.0-1.0 Automated eosinophil count 0.1 10*3/uL 0.0-0.3 Automated blood basophil count (count/volume) 0.0 10*3/uL 0.0-0.1 Comprehensive metabolic panel - 05/13/17 05:30 Serum or plasma sodium measurement (moles/volume) 140 mmol/L 135-145 Serum or plasma potassium measurement (moles/volume) 3.9 mmol/L 3.6-5.0 Serum or plasma chloride measurement (moles/volume) 109 mmol/L 98-107 Carbon dioxide 23 mmol/L 21-32 Serum or plasma anion gap determination (moles/volume) 8 mmol/L 5-14 Serum or plasma urea nitrogen measurement (mass/volume) 5 mg/dL 7-18 Serum or plasma creatinine measurement (mass/volume) 0.76 mg/dL 0.60-1.30 Serum or plasma urea nitrogen/creatinine mass ratio 7 NRG Serum or plasma creatinine measurement with calculation of estimated glomerular filtration rate > NRG Serum or plasma glucose measurement (mass/volume) 106 mg/dL 70-105 Serum or plasma calcium measurement (mass/volume) 8.1 mg/dL 8.5-10.1 Serum or plasma total bilirubin measurement (mass/volume) 0.3 mg/dL 0.1-1.0 Serum or plasma alkaline phosphatase measurement (enzymatic activity/volume) 73 U/L 40-136 Serum or plasma aspartate aminotransferase measurement (enzymatic activity/ volume) 14 U/L 5-34 Serum or plasma alanine aminotransferase measurement (enzymatic activity/volume ) 14 U/L 0-55 Serum or plasma protein measurement (mass/volume) 6.0 g/dL 6.4-8.2 Serum or plasma albumin measurement (mass/volume) 3.3 g/dL 3.2-4.5 Complete urinalysis with reflex to culture - 05/13/17 21:05 Urine color determination YELLOW NRG Urine clarity determination SLIGHTLY CLOUDY NRG Urine pH measurement by test strip 6.5 5-9 Specific gravity of urine by test strip 1.010 1.016- 1.022 Urine protein assay by test strip, semi-quantitative NEGATIVE NEGATIVE Urine glucose detection by automated test strip NEGATIVE NEGATIVE Erythrocytes detection in urine sediment by light microscopy NEGATIVE NEGATIVE Urine ketones detection by automated test strip NEGATIVE NEGATIVE Urine nitrite detection by test strip NEGATIVE NEGATIVE Urine total bilirubin detection by test strip NEGATIVE NEGATIVE Urine urobilinogen measurement by automated test strip (mass/volume) NORMAL NORMAL Urine leukocyte esterase detection by dipstick 1+ NEGATIVE Automated urine sediment erythrocyte count by microscopy (number/high power field) NONE NRG Automated urine sediment leukocyte count by microscopy (number/high power field ) [HPF] NRG Bacteria detection in urine sediment by light microscopy TRACE NRG Squamous epithelial cells detection in urine sediment by light microscopy 10-25 NRG Crystals detection in urine sediment by light microscopy NONE NRG Casts detection in urine sediment by light microscopy NONE NRG Mucus detection in urine sediment by light microscopy NEGATIVE NRG Complete urinalysis with reflex to culture NO NRG Complete blood count (CBC) with automated white blood cell (WBC) differential - 05/14/17 06:20 Blood leukocytes automated count (number/volume) 13.6 10*3/uL 4.3-11.0 Blood erythrocytes automated count (number/volume) 3.95 10*6/uL 4.35-5.85 Venous blood hemoglobin measurement (mass/volume) 12.2 g/dL 11.5-16.0 Blood hematocrit (volume fraction) 37 % 35-52 Automated erythrocyte mean corpuscular volume 92 [foz_us] 80-99 Automated erythrocyte mean corpuscular hemoglobin (mass per erythrocyte) 31 pg 25-34 Automated erythrocyte mean corpuscular hemoglobin concentration measurement ( mass/volume) 33 g/dL 32-36 Automated erythrocyte distribution width ratio 11.9 % 10.0-14.5 Automated blood platelet count (count/volume) 185 10*3/uL 130-400 Automated blood platelet mean volume measurement 9.7 [foz_us] 7.4-10.4 Automated blood neutrophils/100 leukocytes 74 % 42-75 Automated blood lymphocytes/100 leukocytes 15 % 12-44 Blood monocytes/100 leukocytes 10 % 0-12 Automated blood eosinophils/100 leukocytes 1 % 0-10 Automated blood basophils/100 leukocytes 0 % 0-10 Blood neutrophils automated count (number/volume) 10.1 10*3 1.8-7.8 Blood lymphocytes automated count (number/volume) 2.0 10*3 1.0-4.0 Blood monocytes automated count (number/volume) 1.4 10*3 0.0-1.0 Automated eosinophil count 0.1 10*3/uL 0.0-0.3 Automated blood basophil count (count/volume) 0.0 10*3/uL 0.0-0.1 Whole blood basic metabolic panel - 05/14/17 06:20 Serum or plasma sodium measurement (moles/volume) 143 mmol/L 135-145 Serum or plasma potassium measurement (moles/volume) 3.5 mmol/L 3.6-5.0 Serum or plasma chloride measurement (moles/volume) 110 mmol/L 98-107 Carbon dioxide 22 mmol/L 21-32 Serum or plasma anion gap determination (moles/volume) 11 mmol/L 5-14 Serum or plasma urea nitrogen measurement (mass/volume) 5 mg/dL 7-18 Serum or plasma creatinine measurement (mass/volume) 0.71 mg/dL 0.60-1.30 Serum or plasma urea nitrogen/creatinine mass ratio 7 NRG Serum or plasma creatinine measurement with calculation of estimated glomerular filtration rate > NRG Serum or plasma glucose measurement (mass/volume) 99 mg/dL 70-105 Serum or plasma calcium measurement (mass/volume) 8.3 mg/dL 8.5-10.1 Bacterial blood culture - 05/14/17 17:55 Bacterial blood culture NG NRG Bacterial blood culture - 05/14/17 18:00 Bacterial blood culture NG [facility] Complete blood count (CBC) with automated white blood cell (WBC) differential - 05/15/17 06:10 Blood leukocytes automated count (number/volume) 10.0 10*3/uL 4.3-11.0 Blood erythrocytes automated count (number/volume) 3.68 10*6/uL 4.35-5.85 Venous blood hemoglobin measurement (mass/volume) 11.2 g/dL 11.5-16.0 Blood hematocrit (volume fraction) 34 % 35-52 Automated erythrocyte mean corpuscular volume 93 [foz_us] 80-99 Automated erythrocyte mean corpuscular hemoglobin (mass per erythrocyte) 30 pg 25-34 Automated erythrocyte mean corpuscular hemoglobin concentration measurement ( mass/volume) 33 g/dL 32-36 Automated erythrocyte distribution width ratio 12.0 % 10.0-14.5 Automated blood platelet count (count/volume) 195 10*3/uL 130-400 Automated blood platelet mean volume measurement 10.2 [foz_us] 7.4-10.4 Automated blood neutrophils/100 leukocytes 72 % 42-75 Automated blood lymphocytes/100 leukocytes 19 % 12-44 Blood monocytes/100 leukocytes 8 % 0-12 Automated blood eosinophils/100 leukocytes 2 % 0-10 Automated blood basophils/100 leukocytes 0 % 0-10 Blood neutrophils automated count (number/volume) 7.2 10*3 1.8-7.8 Blood lymphocytes automated count (number/volume) 1.9 10*3 1.0-4.0 Blood monocytes automated count (number/volume) 0.8 10*3 0.0-1.0 Automated eosinophil count 0.2 10*3/uL 0.0-0.3 Automated blood basophil count (count/volume) 0.0 10*3/uL 0.0-0.1 Comprehensive metabolic panel - 05/15/17 06:10 Serum or plasma sodium measurement (moles/volume) 144 mmol/L 135-145 Serum or plasma potassium measurement (moles/volume) 3.4 mmol/L 3.6-5.0 Serum or plasma chloride measurement (moles/volume) 111 mmol/L 98-107 Carbon dioxide 27 mmol/L 21-32 Serum or plasma anion gap determination (moles/volume) 6 mmol/L 5-14 Serum or plasma urea nitrogen measurement (mass/volume) 5 mg/dL 7-18 Serum or plasma creatinine measurement (mass/volume) 0.71 mg/dL 0.60-1.30 Serum or plasma urea nitrogen/creatinine mass ratio 7 NRG Serum or plasma creatinine measurement with calculation of estimated glomerular filtration rate > NRG Serum or plasma glucose measurement (mass/volume) 100 mg/dL 70-105 Serum or plasma calcium measurement (mass/volume) 8.2 mg/dL 8.5-10.1 Serum or plasma total bilirubin measurement (mass/volume) 0.2 mg/dL 0.1-1.0 Serum or plasma alkaline phosphatase measurement (enzymatic activity/volume) 75 U/L 40-136 Serum or plasma aspartate aminotransferase measurement (enzymatic activity/ volume) 18 U/L 5-34 Serum or plasma alanine aminotransferase measurement (enzymatic activity/volume ) 18 U/L 0-55 Serum or plasma protein measurement (mass/volume) 5.5 g/dL 6.4-8.2 Serum or plasma albumin measurement (mass/volume) 3.0 g/dL 3.2-4.5 Complete blood count (CBC) with automated white blood cell (WBC) differential - 05/20/17 13:00 Blood leukocytes automated count (number/volume) 11.4 10*3/uL 4.3-11.0 Blood erythrocytes automated count (number/volume) 4.47 10*6/uL 4.35-5.85 Venous blood hemoglobin measurement (mass/volume) 13.7 g/dL 11.5-16.0 Blood hematocrit (volume fraction) 41 % 35-52 Automated erythrocyte mean corpuscular volume 92 [foz_us] 80-99 Automated erythrocyte mean corpuscular hemoglobin (mass per erythrocyte) 31 pg 25-34 Automated erythrocyte mean corpuscular hemoglobin concentration measurement ( mass/volume) 33 g/dL 32-36 Automated erythrocyte distribution width ratio 12.1 % 10.0-14.5 Automated blood platelet count (count/volume) 346 10*3/uL 130-400 Automated blood platelet mean volume measurement 9.3 [foz_us] 7.4-10.4 Automated blood neutrophils/100 leukocytes 67 % 42-75 Automated blood lymphocytes/100 leukocytes 23 % 12-44 Blood monocytes/100 leukocytes 8 % 0-12 Automated blood eosinophils/100 leukocytes 2 % 0-10 Automated blood basophils/100 leukocytes 0 % 0-10 Blood neutrophils automated count (number/volume) 7.6 10*3 1.8-7.8 Blood lymphocytes automated count (number/volume) 2.7 10*3 1.0-4.0 Blood monocytes automated count (number/volume) 0.9 10*3 0.0-1.0 Automated eosinophil count 0.2 10*3/uL 0.0-0.3 Automated blood basophil count (count/volume) 0.0 10*3/uL 0.0-0.1 Encounters ACCT No. Visit Date/Time Discharge Status Pt. Type Provider Facility Loc./Unit Complaint [id number] 10/25/2014 17:22:00 10/25/2014 23:59:59 CLS Outpatient CAROLE HOOD APRN [id number] 09/02/2014 11:35:00 09/02/2014 23:59:59 CLS Outpatient FINN SALAS DO [id number] 08/25/2013 18:47:00 08/25/2013 23:59:59 CLS Outpatient DAVID SNYDER APRN [id number] 07/12/2013 15:56:00 07/12/2013 23:59:59 CLS Outpatient CAROLE HOOD APRN [id number] 11/19/2012 05:46:00 11/19/2012 23:59:59 CLS Outpatient [id number] 11/02/2012 16:39:00 11/02/2012 23:59:59 CLS Outpatient [id number] 10/19/2012 14:15:00 10/19/2012 23:59:59 CLS Outpatient FINN SALAS DO [id number] 09/23/2012 13:35:00 09/23/2012 23:59:59 [place] [id number] 07/28/2012 13:58:00 07/28/2012 23:59:59 CLS Outpatient FINN SALAS DO [id number] 04/12/2013 16:53:00 Document Registration [id number] 02/26/2013 08:27:00 Document Registration [id number] 02/23/2013 18:49:00 Document Registration [id number] 07/07/2017 11:43:00 07/07/2017 23:59:59 CLS Outpatient CELE CURRY, BRAYDON Garcia [facility] RAD AP R10.9, ABDOMINAL SWELLING R19.00 [id number] 06/15/2017 01:44:00 06/15/2017 23:59:59 CLS Preadmit FABI ABDALLA DO [facility] LAB AB [id number] 06/15/2017 01:02:00 06/15/2017 23:59:59 CLS Preadmit FABI ABDALLA DO Via [address] RCR PERITONEAL CUTANEOUS FISTULA/ABD WALL ABSCESS [id number] 05/20/2017 12:53:00 06/14/2017 00:01:00 DIS Outpatient FABI ABDALLA DO [facility] LAB AB [id number] 05/19/2017 13:30:00 06/14/2017 00:01:00 DIS Outpatient FABI ABDALLA DO [facility] 4TH RCR PERITONEAL CUTANEOUS FISTULA/ABD WALL ABSCESS [id number] 05/12/2017 02:15:00 05/15/2017 20:10:00 DIS Inpatient BRAYDON OAKLEY MD [facility] 4TH PERITONEAL CUTANEOUS FISTULA/ABD WALL ABSCESS [id number] 04/03/2017 08:03:00 04/03/2017 23:59:59 CLS Outpatient BRAYDON OAKLEY MD [facility] RAD NONHEALING SURGICAL WOUND,ABD PAIN R10.9 [id number] 01/29/2017 00:39:00 01/29/2017 02:04:00 DIS Emergency TYE ADKINS MD [facility] ER CELLULITIS ON STOMACH [id number] 01/22/2017 01:53:00 01/23/2017 09:45:00 DIS Inpatient BRAYDON OAKLEY MD [facility] 4TH SEPSIS,ABDOMINAL WALL CELLULITIS [id number] 10/30/2016 12:02:00 11/01/2016 14:24:00 DIS Inpatient BRAYDON OAKLEY MD [facility] 4TH INFECTED MESH [id number] 10/24/2016 10:40:00 10/24/2016 11:05:00 DIS Outpatient BRAYDON OAKLEY MD [facility] PREOP INFECTED MESH [id number] 10/14/2016 09:09:00 10/14/2016 23:59:59 CLS Outpatient BRAYDON OAKLEY MD [facility] RAD INFECTED MESH [id number] 07/12/2016 22:55:00 07/13/2016 01:15:00 DIS Emergency DAVID RAY DO [facility] ER DRAINAGE OF STOMACH WOUND [id number] 07/01/2016 15:16:00 07/01/2016 23:59:59 CLS Preadmit EMILIANA HNUT MD [facility] WOUNDCARE [id number] 05/29/2016 15:37:00 06/14/2016 12:00:00 DIS Outpatient EMILIANA HUNT MD [facility] WOUNDCARE [id number] 05/10/2016 09:40:00 05/10/2016 23:59:59 CLS Outpatient EMILIANA HUNT MD [facility] WOUNDCARE [id number] 02/19/2016 09:39:00 02/19/2016 14:42:00 DIS Outpatient NATALIA MORENO DO [facility] SDC ABDOMINAL WOUND [id number] 02/16/2016 09:09:00 02/16/2016 10:32:00 DIS Outpatient NATALIA MORENO DO [facility] PREOP [id number] 02/08/2016 13:47:00 02/08/2016 23:59:59 CLS Outpatient NATALIA MORENO DO [facility] RAD WOUND UMBILICAL AREA [id number] 02/07/2016 09:05:00 02/07/2016 12:00:00 DIS Outpatient EMILIANA HUNT MD [facility] WOUNDCARE [id number] 02/05/2016 16:49:00 02/05/2016 23:59:59 CLS Outpatient RACHEL CARRERA MD [facility] RAD NON PRESSURE CHRONIC ULCER [id number] 02/02/2016 11:30:00 02/02/2016 23:59:59 CLS Outpatient RACHEL CARRERA MD [facility] LAB DISRUPTION OF EXTERNAL OPERATIONCHRONIS ULSER [id number] 12/26/2015 00:11:00 12/26/2015 23:59:59 CLS Preadmit OLIVIA ROSE DO [facility] [id number] 10/15/2015 08:49:00 12/25/2015 00:01:00 DIS Outpatient OLIVIA ROSE DO [facility] [id number] 12/20/2015 22:03:00 12/20/2015 23:46:00 DIS Emergency SATNAM LOONEY [facility] ER SKIN RASH/WOUND [id number] 09/25/2015 09:15:00 09/25/2015 00:01:00 DIS Outpatient OLIVIA ROSE DO [facility] [id number] 06/23/2015 11:33:00 06/26/2015 17:50:00 DIS Outpatient OLIVIA ROSE DO [facility] [id number] 06/10/2015 02:58:00 06/12/2015 08:05:00 DIS Inpatient OLIVIA ROSE DO [facility] SURGICAL ABDDOMINAL WALL ABSCESS + CELLULITIS [id number] 06/01/2015 12:43:00 06/01/2015 23:59:59 CLS Outpatient SHAWNA NGP [facility] [id number] 05/29/2015 18:04:00 05/30/2015 10:40:00 DIS Inpatient OLIVIA ROSE DO [facility] SURGICAL CELLULITIS ABD WALL,LEUKOCYTOSIS [id number] 03/29/2015 21:22:00 03/30/2015 00:01:00 DIS Emergency TYE ADKINS MD [facility] ER ABD PAIN [id number] 02/18/2015 16:01:00 02/18/2015 16:26:00 DIS Emergency NORRIS BROWNLEE APRN [facility] ER [id number] 02/15/2015 22:31:00 02/16/2015 00:47:00 DIS Emergency SATNAM LOONEY [facility] ER PAIN UNDER R ARM [id number] 11/01/2014 13:30:00 11/01/2014 23:59:59 CLS Outpatient CAROLE HOOD APRN [facility] RAD RECURRENT LEFT MASTITIS [id number] 03/15/2014 09:50:00 03/15/2014 12:32:00 DIS Emergency AMARJIT MENA MD [facility] ER ABD PAIN [id number] 11/25/2013 09:18:00 12/09/2013 13:54:00 DIS Outpatient SHAWNA NG [facility] REHAB [id number] 07/18/2013 12:31:00 07/18/2013 15:40:00 DIS Emergency TYE ADKINS MD [facility] ER INFECTION ON BREAST [id number] 03/26/2013 13:10:00 03/26/2013 23:59:59 CLS Outpatient BRAYDON OAKLEY MD [facility] RAD LT BREAST ABCESS [id number] 03/25/2013 12:54:00 03/25/2013 23:59:59 CLS Outpatient BRAYDON OAKLEY MD [facility] RAD RECURRENT ABCESS [id number] 03/21/2013 11:59:00 03/21/2013 15:56:00 DIS Emergency SATNAM LOONEY Via [facility] ER L BREAST INFECTIN AND KIDNEY INFECTION [id number] 10/14/2016 09:20:00 Document Registration [id number] 06/20/2015 14:38:00 Document Registration [id number] 02/18/2015 16:02:00 Document Registration [id number] 10/26/2012 10:05:00 Document Registration [id number] 10/21/2012 12:01:00 Document Registration [id number] 10/06/2012 11:00:00 Document Registration [id number] 07/30/2012 16:30:00 Document Registration [id number] 02/12/2012 09:15:00 Document Registration [id number] 12/02/2011 09:29:00 Document Registration [id number] 11/27/2011 15:35:00 Document Registration [id number] 11/25/2011 17:02:00 Document Registration [id number] 11/24/2011 12:10:00 Document Registration [id number] 10/24/2011 05:48:00 Document Registration [id number] 10/17/2011 10:07:00 Document Registration [id number] 10/01/2011 12:04:00 Document Registration [id number] 09/04/2011 16:07:00 Document Registration [id number] 08/15/2011 08:01:00 Document Registration [id number] 06/16/2011 13:19:00 Document Registration [id number] 01/21/2011 05:39:00 Document Registration [id number] 01/16/2011 14:24:00 Document Registration [id number] 01/02/2011 13:47:00 Document Registration [id number] 12/09/2010 14:48:00 Document Registration [id number] 09/14/2010 09:03:00 Document Registration [id number] 08/28/2010 22:00:00 Document Registration [id number] 08/13/2010 16:53:00 Document Registration [id number] 03/31/2010 15:50:00 Document Registration [id number] 03/26/2010 11:09:00 Document Registration [id number] 03/23/2010 08:13:00 Document Registration [id number] 02/08/2010 15:20:00 Document Registration
[2017-10-13] MEDS ORDERED: FAMOTIDINE 20MG/2ML IV (PEPCID) IV STA (00:07)
[2017-10-13] MEDS ORDERED: KETOROLAC 30 MG/ML VIAL IVP STA (00:07)
[2017-10-13] MEDS ORDERED: LACTATED RINGERS 1,000 ML IV ONE (00:07)
[2017-10-13] MEDS ORDERED: ONDANSETRON 4 MG/2 ML (SDV) Z0FRAN IVP ONE (00:15)
[2017-10-13 00:30] LABS: BASOPHILS % (AUTO) 0 % (0-10); EOSINOPHILS # (AUTO) 0.2 10^3/uL (0.0-0.3); EOSINOPHILS % (AUTO) 2 % (0-10); HEMATOCRIT 37 % (35-52); HEMOGLOBIN 12.5 G/DL (11.5-16.0); LYMPHOCYTES % (AUTO) 20 % (12-44); MEAN CORPUSCULAR HEMOGLOBIN 31 PG (25-34); MEAN CORPUSCULAR HGB CONC 34 G/DL (32-36); MEAN CORPUSCULAR VOLUME 91 FL (80-99); MEAN PLATELET VOLUME 9.3 FL (7.4-10.4); MONOCYTES % (AUTO) 10 % (0-12); NEUTROPHILS # (AUTO) 6.7 X 10^3 (1.8-7.8); NEUTROPHILS % (AUTO) 68 % (42-75); PLATELET COUNT 259 10^3/uL (130-400); RED BLOOD COUNT 4.09 10^6/uL (4.35-5.85); RED CELL DISTRIBUTION WIDTH 12.2 % (10.0-14.5); WHITE BLOOD COUNT 9.9 10^3/uL (4.3-11.0)
[2017-10-13 00:50] LABS: ALANINE AMINOTRANSFERASE 16 U/L (0-55); ALBUMIN 3.6 GM/DL (3.2-4.5); ALKALINE PHOSPHATASE 70 U/L (40-136); AMYLASE 39 U/L (25-125); BILIRUBIN,TOTAL 0.3 MG/DL (0.1-1.0); BUN/CREATININE RATIO 14; CALCIUM 9.2 MG/DL (8.5-10.1); CARBON DIOXIDE 25 MMOL/L (21-32); CHLORIDE 105 MMOL/L (98-107); GFR ESTIMATED > 60; GLUCOSE 101 MG/DL (70-105); LIPASE 54 U/L (8-78); POTASSIUM 3.4 MMOL/L (3.6-5.0); SODIUM 141 MMOL/L (135-145)
[2017-10-13 01:58] LABS: BILIRUBIN,URINE NEGATIVE (NEGATIVE); CLARITY,URINE CLEAR; COLOR,URINE YELLOW; GLUCOSE, URINE (UA) NEGATIVE (NEGATIVE); KETONES,URINE NEGATIVE (NEGATIVE); LEUKOCYTE ESTERASE ,URINE 1+ (NEGATIVE); NITRITE,URINE NEGATIVE (NEGATIVE); PH,URINE 5 (5-9); PROTEIN,URINE NEGATIVE (NEGATIVE); UROBILINOGEN,URINE 1 MG/DL (NORMAL)
[2017-10-13 02:10] LABS: BACTERIA,URINE TRACE /HPF; CALCIUM OXALATE CRYSTALS,UR LARGE /LPF; WBC,URINE RARE /HPF
[2017-10-13] MEDS ORDERED: morphine INJ 10 MG/ML 1ML (SYR OR VIAL) IVP STA (02:13)
[2017-10-13] MEDS ORDERED: PANTOPRAZOLE 40 MG/10 ML (PROTONIX) VIAL IV ONE (02:15)
--- NOTE | 2017-10-13 02:20 | ED Abdominal Pain ---
General Chief Complaint: Abdominal/GI Problems Stated Complaint: STOMACH PAIN,CRAMPS, Nursing Triage Note: abdominal pain Sepsis Screen: No Definite Risk Source of Information: Patient History of Present Illness Date Seen by Provider: Oct 12, 2017 Time Seen by Provider: 23:40 Initial Comments PT C/O ABDOMINAL PAIN PT STATES SHE HAS A HERNIA AND A FISTULA--HAS HAD 6 HERNIA REPAIRS PREVIOUSLY AND HAS A RECURRENT VENTRAL AND UMBILICAL HERNIA AND RECURRENT ABSCESS/ CELLULITIS TO INCISION AREA., AND WAS REFERRED TO [facility] BY DR. OAKLEY. ADDITIONALLY SHE HAS HAD A BOWEL RESECTION FOR ? STRANGULATION DUE TO HERNIA ? SEEN THERE 2 WEEKS AGO, NO TESTS WERE DONE THERE AND NO SURGERY HAS BEEN SCHEDULED AT THIS TIME. 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 PT STATES SHE HAS HAD FEVER OF 101 OFF AND ON SINCE FRIDAY, BUT NONE TODAY. POSSIBLY HAD OTHER FLU-LIKE SYMPTOMS, WHICH ARE GETTING BETTER HAS PROBLEMS WITH ONGOING NAUSEA AND OCCASIONAL VOMITING--VOMITED X 1 TONIGHT PT STATES SHE "USED TO HAVE REALLY BAD ACID REFLUX AND GASTRITIS" BUT HAS NOT BEEN ON ANY MEDICATIONS FOR YEARS FOR THOSE PROBLEMS Allergies and Home Medications Allergies Coded Allergies: vancomycin (Verified Allergy, Intermediate, RED MAN SYNDRONE, 05/12/17) ciprofloxacin (Unverified Allergy, Unknown, 12/20/15) ciprofloxacin HCl (Unverified Allergy, Unknown, 12/20/15) duloxetine (Verified Allergy, Unknown, 12/20/15) Home Medications Hydrocodone Bit/Acetaminophen 1 Tab Tab, 1 EACH PO Q4H, #20 Prescribed by: MIAN GOMEZ on 10/13/17224 Lactobacillus Acidophilus 1 Each Capsule, 2 EACH PO QID, #80 Prescribed by: MIAN GOMEZ on 10/13/175 Ondansetron 4 Mg Tab.rapdis, 4 MG PO Q4H, #10 Prescribed by: MIAN GOMEZ on 10/13/17225 Pantoprazole Sodium 40 Mg Tablet.dr, 40 MG PO DAILY, #15 Prescribed by: MIAN GOMEZ on 10/13/17224 Sucralfate 1 Gm Tablet, 1 GM PO QIDACHS, #60 Prescribed by: MIAN GOMEZ on 10/13/17224 Review of Systems Constitutional: see HPI, fever, malaise EENTM: See HPI, Nose Congestion Respiratory: See HPI, Cough Cardiovascular: No Symptoms Reported Gastrointestinal: See HPI, Abdominal Pain, Nausea, Vomiting Genitourinary: No Symptoms Reported Musculoskeletal: no symptoms reported Skin: no symptoms reported Psychiatric/Neurological: No Symptoms Reported Endocrine: No Symptoms Reported Hematologic/Lymphatic: No Symptoms Reported Past Wvpmeoe-Anyqvy-Hytcak Hx Patient Social History Alcohol Use: Denies Use Recreational Drug Use: No Smoking Status: Current Everyday Smoker Type Used: Cigarettes 2nd Hand Smoke Exposure: Yes Recent Foreign Travel: No Contact w/Someone Who Travel: No Recent Infectious Disease Expo: No Recent Hopitalizations: No Immunizations Up To Date Tetanus Booster (TDap): Less than 5yrs Date of Pneumonia Vaccine: Sep 15, 2009 Date of Influenza Vaccine: Jul 11, 2016 Seasonal Allergies Seasonal Allergies: No Surgeries History of Surgeries: Yes (LT BREAST BX AND MULTIPLE LT BREAST DEBRIDEMENTS, HERNIA SX x6, C/S x4) Surgeries: Abdominal, Breast, Section, Gallbladder, 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 Respiratory History of Respiratory Disorde: Yes Respiratory Disorders: Pneumonia Currently Using CPAP: No Currently Using BIPAP: No Cardiovascular History of Cardiac Disorders: Yes (MITRAL VALVE PROLAPSE) Cardiac Disorders: Heart Murmur, Valvular Heart Disease Neurological History of Neurological Disord: Yes Neurological Disorders: Headaches /Migraines 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 System : No Hx 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 Disorders: No Sexually Transmitted Disease: No HIV/AIDS: No Female 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 Disorders: Endometriosis 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 Genitourinary History of Genitourinary Disor: No Genitourinary Disorders: UTI-Chronic Gastrointestinal History of Gastrointestinal Di: Yes (UMBILICAL & INCISIONAL HERNIA, GASTRITIS) Gastrointestinal Disorders: Abdominal Hernia, Gastroesophageal Reflux Musculoskeletal History of Musculoskeletal Dis: Yes Musculoskeletal Disorders: Degenerate Disk Disease, Scoliosis, Chronic Back Pain Endocrine History of Endocrine Disorders: No HEENT Loss of Vision: Denies Hearing Impairment: Denies Cancer History of Cancer: No Psychosocial History of Psychiatric Problem: Yes Behavioral Health Disorders: ADD/ADHD, Depression Integumentary History of Skin or Integumenta: Yes (CHRONIC BREAST INFECTIONS, ABDOMINAL WALL CELLULITIS) Skin/Integumentary Disorders: Psoriasis Blood Transfusions History of Blood Disorders: No Adverse Reaction to a Blood Tr: No Family Medical History Significant Family History: Cancer, GI Disease Family Medial History: Arthritis 19 MOTHER Asthma 19 MOTHER G8 BROTHER Cardiovascular disease 19 FATHER Colon cancer Deafness or hearing loss 19 MOTHER (grandfather) Diabetes mellitus 19 FATHER Drug abuse G8 BROTHER Gastroenteritis G8 SISTER (CROHNS) Headache disorder 19 MOTHER Hypertension 19 FATHER 19 MOTHER Myocardial infarction 19 FATHER Psychosocial problem 19 MOTHER Respiratory disorder 19 FATHER Physical Exam Vital Signs VS - Last 72 Hours, by Label 10/12/17 10/13/17 10/13/17 23:13 02:25 02:51 Temp 97.7 97.7 97.7 Pulse 102 76 Resp 18 16 B/P (MAP) 148/86 (106) Pulse Ox 98 95 O2 Delivery Room Air Room Air Capillary Refill : Less Than 3 Seconds General Appearance: WD/WN, no apparent distress HEENT: PERRL/EOMI Neck: normal inspection Respiratory: normal breath sounds, no respiratory distress, no accessory muscle use Cardiovascular: regular rate, rhythm, no murmur Gastrointestinal: normal bowel sounds, soft, no organomegaly, no pulsatile mass , No guarding, No rebound, tenderness, hernia, other (HAS SOME MILD SCABBING TO OLD SURGICAL SCAR AREAS. BUT NO EVIDENCE OF INFECTION/ABSCESS. PT HAS LARGE LEFT PERIUMBILICAL/VENTRAL HERNIA. 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, no motor/sensory deficits, alert, oriented x 3, other (FLAT AFFECT) Skin: normal color, warm/dry Progress/Results/Core Measures Results/Orders Lab Results Laboratory Tests Test 10/13/17 00:15 10/13/17 01:50 Range/Units White Blood Count 9.9 4.3-11.0 10^3/uL Red Blood Count 4.09 L 4.35-5.85 10^6/uL Hemoglobin 12.5 11.5-16.0 G/DL Hematocrit 37 35-52 % Mean Corpuscular Volume 91 80-99 FL Mean Corpuscular Hemoglobin 31 25-34 PG Mean Corpuscular Hemoglobin Concent 34 32-36 G/DL Red Cell Distribution Width 12.2 10.0-14.5 % Platelet Count 259 130-400 10^3/uL Mean Platelet Volume 9.3 7.4-10.4 FL Neutrophils (%) (Auto) 68 42-75 % Lymphocytes (%) (Auto) 20 12-44 % Monocytes (%) (Auto) 10 0-12 % Eosinophils (%) (Auto) 2 0-10 % Basophils (%) (Auto) 0 0-10 % Neutrophils # (Auto) 6.7 1.8-7.8 X 10^3 Lymphocytes # (Auto) 2.0 1.0-4.0 X 10^3 Monocytes # (Auto) 1.0 0.0-1.0 X 10^3 Eosinophils # (Auto) 0.2 0.0-0.3 10^3/uL Basophils # (Auto) 0.0 0.0-0.1 10^3/uL Sodium Level 141 135-145 MMOL/L Potassium Level 3.4 L 3.6-5.0 MMOL/L Chloride Level 105 98-107 MMOL/L Carbon Dioxide Level 25 21-32 MMOL/L Anion Gap 11 5-14 MMOL/L Blood Urea Nitrogen 11 7-18 MG/DL Creatinine 0.80 0.60-1.30 MG/DL Estimat Glomerular Filtration Rate > 60 BUN/Creatinine Ratio 14 Glucose Level 101 70-105 MG/DL Calcium Level 9.2 8.5-10.1 MG/DL Total Bilirubin 0.3 0.1-1.0 MG/DL Aspartate Amino Transf (AST/SGOT) 12 5-34 U/L Alanine Aminotransferase (ALT/SGPT) 16 0-55 U/L Alkaline Phosphatase 70 40-136 U/L Total Protein 7.0 6.4-8.2 GM/DL Albumin 3.6 3.2-4.5 GM/DL Amylase Level 39 25-125 U/L Lipase 54 8-78 U/L Urine Color YELLOW Urine Clarity CLEAR Urine pH 5 5-9 Urine Specific Dixon 1.030 H 1.016-1.022 Urine Protein NEGATIVE NEGATIVE Urine Glucose (UA) NEGATIVE NEGATIVE Urine Ketones NEGATIVE NEGATIVE Urine Nitrite NEGATIVE NEGATIVE Urine Bilirubin NEGATIVE NEGATIVE Urine Urobilinogen 1 NORMAL MG/DL Urine Leukocyte Esterase 1+ H NEGATIVE Urine RBC (Auto) NEGATIVE NEGATIVE Urine RBC NONE /HPF Urine WBC RARE /HPF Urine Squamous Epithelial Cells 2-5 /HPF Urine Crystals PRESENT H /LPF Urine Calcium Oxalate Crystals LARGE H /LPF Urine Bacteria TRACE /HPF Urine Casts NONE /LPF Urine Mucus LARGE H /LPF Urine Culture Indicated NO My Orders Orders - MIAN GOMEZ DO Saline Lock/Iv-Start (10/13/17 00:07) Ct Abdomen/Pelvis W (10/13/17 00:07) Amylase (10/13/17 00:07) Cbc With Automated Diff (10/13/17 00:07) Comprehensive Metabolic Panel (10/13/17 00:07) Lipase (10/13/17 00:07) Ua Culture If Indicated (10/13/17 00:07) Acute Abd Series (10/13/17 00:07) Lactated Ringers (Lr 1000 Ml Iv Solution (10/13/17 00:07) Ondansetron Injection (Zofran Injectio (10/13/17 00:15) Famotidine Injection (Pepcid Injection) (10/13/17 00:07) Ketorolac Injection (Toradol Injection) (10/13/17 00:07) Morphine Injection (Morphine Injection (10/13/17 02:13) Pantoprazole Injection (Protonix Injecti (10/13/17 02:15) Rx-Hydrocodone/Apap 5-325 Mg (Rx-Vicodin (10/13/17 02:30) Rx-Ondansetron Po (Rx-Zofran Po) (10/13/17 02:26) Rx-Hydrocodone/Apap 5-325 Mg (Rx-Vicodin (10/13/17 02:33) Medications Given in ED Vital Signs/I&O Vital Sign - Last 12Hours 10/12/17 10/13/17 10/13/17 23:13 02:25 02:51 Temp 97.7 97.7 97.7 Pulse 102 76 Resp 18 16 B/P (MAP) 148/86 (106) Pulse Ox 98 95 O2 Delivery Room Air Room Air Blood Pressure Mean: 106 Progress Note : Progress Note PAIN AND NAUSEA IMPROVED AT DISMISSAL Diagnostic Imaging Comments CT ABDOMEN/PELVIS--NO ACUTE PROCESS, LEFT PERIUMBILICAL HERNIA HAS INCREASED IN SIZE,BUT NO OBSTRUCTION, FEW PROMINENT MESENTERIC NODES--PER [facility] VIA FAX @ [id number] ACUTE ABDOMEN XRAYS--NO ACUTE PROCESS, PENDING RADIOLOGIST REVIEW Reviewed: Reviewed by Me Departure Impression Impression: Primary Impression: Abdominal wall pain Additional Impressions: Ventral hernia, recurrent Dyspepsia Disposition: 01 HOME, SELF-CARE Condition: Stable Departure-Patient Inst. Referrals: FABI ABDALLA DO (PCP/Family) Primary Care Physician Patient Instructions: Abdominal Hernia (DC), Abdominal Muscle Strain (DC), Dyspepsia (DC) Add. Discharge Instructions: FOLLOW UP WITH [facility] FOR FURTHER EVALUATION/TREATMENT OF HERNIA--CALL IN AM TO ARRANGE FOLLOW UP BLAND DIET--NO SPICY, GREASY/HIGH OR ACIDIC FOOD OR DRINK FOLLOW UP WITH DR. ABDALLA THIS WEEK FOR FURTHER CARE All discharge instructions reviewed with patient and/or family. Voiced understanding. Scripts Ondansetron (Zofran Odt) 4 Mg Tab.rapdis 4 MG PO Q4H for Nausea/Vomiting, #10 TAB Prov: MIAN GOMEZ DO 10/13/17 Pantoprazole Sodium (Protonix) 40 Mg Tablet.dr 40 MG PO DAILY, #15 TAB Prov: MIAN GOMEZ DO 10/13/17 Hydrocodone Bit/Acetaminophen (Hydrocodone/Acetaminophen 5/325mg Tablet) 1 Tab Tab 1 EACH PO Q4H, #20 TAB Prov: MIAN GOMEZ DO 10/13/17 Sucralfate (Carafate) 1 Gm Tablet 1 GM PO QIDACHS, #60 TAB Prov: MIAN GOMEZ K 10/13/17 Lactobacillus Acidophilus (Acidophilus) 1 Each Capsule 2 EACH PO QID, #80 CAP Prov: BLANCA GOMEZA K 10/13/17 BLANCA GOMEZA K Oct 13, 2017 02:20
[2017-10-13] MEDS ORDERED: PANT40TA2 PO (02:25)
[2017-10-13] MEDS ORDERED: SUCR1TAB36 PO (02:25)
[2017-10-13] MEDS ORDERED: LACT1CAP8 PO (02:25)
[2017-10-13] MEDS ORDERED: ACHD5005 PO (02:25)
[2017-10-13] MEDS ORDERED: ONDA4TAB8 PO (02:26)
[2017-10-13] MEDS ORDERED: RX-ONDANSETRON 4 MG ODT (ZOFRAN) PPK #4 PO STA (02:26)
[2017-10-13] MEDS ORDERED: RX-HYDROCODONE/APAP 5/325 MG #4 TAB PK PO PRN (02:30)
[2017-10-13] MEDS ORDERED: RX-HYDROCODONE/APAP 5/325 MG #4 TAB PK PO ONE (02:33)
[2017-10-13 02:51] VITALS: BP 119/61
--- NOTE | 2017-10-13 07:12 | Diagnostic Imaging Report ---
INDICATION: Abdominal pain and cramping. COMPARISON: CT abdomen and pelvis performed earlier same day. FINDINGS: Lungs are clear. No pleural effusion or pneumothorax. Heart is normal in size. Normal pulmonary vasculature. No free intraperitoneal air. Nonobstructive bowel gas pattern. Cholecystectomy. Changes from ventral abdominal hernia repair noted. Normal regional skeleton. IMPRESSION: 1. Nonobstructive bowel gas pattern and no free intraperitoneal air. 2. No acute cardiopulmonary process. Dictated by: Dictated on workstation # [id number]
--- NOTE | 2017-10-13 07:20 | Diagnostic Imaging Report ---
PROCEDURE: CT abdomen and pelvis with contrast. TECHNIQUE: Multiple contiguous axial images were obtained through the abdomen and pelvis after administration of intravenous contrast. INDICATION: Abdominal pain and cramping. COMPARISON: 07/07/2017 FINDINGS: Lower chest: The lung bases are clear. No pericardial or pleural effusion. Peritoneum: No free intraperitoneal air or fluid. Liver and biliary system: The liver is normal. Status post cholecystectomy. No biliary duct dilatation. Spleen and Pancreas: Spleen is normal. The pancreas enhances normally without mass lesion or peripancreatic inflammatory changes. Adrenals: Normal. tract: The kidneys enhance normally without suspicious mass or obstruction. Urinary bladder is distended without wall thickening. 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. GI tract: Stomach is decompressed. No bowel obstruction. There is a recurrent periumbilical hernia which has a wide neck with the hernia sac containing a few nondilated loops of bowel and peritoneal fat. Neck defect measures approximately 4 cm. There is no fluid within the hernia sac to indicate strangulation. There is abnormal wall thickening in the terminal ileum as well as a few loops of distal small bowel which have increased mucosal enhancement. No perforation. The colon is fluid-filled. Vasculature and Lymph nodes: Normal caliber aorta. No abdominal or pelvic lymphadenopathy. Musculoskeletal: No concerning osseous lesion. IMPRESSION: 1. Increased size of periumbilical hernia containing peritoneal fat and a few loops of normal caliber small bowel. No bowel obstruction or strangulation. 2. Enteritis involving the distal small bowel and terminal ileum. This could be infectious or inflammatory in etiology. No perforation. Findings are in agreement with the preliminary report. Dictated by: Dictated on workstation # [id number]
== END 2017-10-13 02:48 | disposition home or self-care (01) ==
LOC: EDUNIT# 22:53 → ER 22:54
DX: K43.2 Incisional hernia without obstruction or gangrene (principal); G43.909 Migraine, unspecified, not intractable, without status migrainosus; K21.9 Gastro-esophageal reflux disease without esophagitis; F90.9 Attention-deficit hyperactivity disorder, unspecified type; F32.9 Major depressive disorder, single episode, unspecified; F17.210 Nicotine dependence, cigarettes, uncomplicated; Z87.59 Personal history of other complications of pregnancy, childbirth and the puerperium; Z80.0 Family history of malignant neoplasm of digestive organs; Z82.49 Family history of ischemic heart disease and other diseases of the circulatory system; Z90.710 Acquired absence of both cervix and uterus; Z87.440 Personal history of urinary (tract) infections; Z87.19 Personal history of other diseases of the digestive system; Z87.01 Personal history of pneumonia (recurrent)
CPT/HCPCS: 36415; 74022; 74177; 80053; 81000; 82150; 83690; 85025

== ENCOUNTER 2018-02-15 12:53 | Emergency (ER) | payer SELFPAY ==
[~2018-02-15] VITALS: Ht 165.1 cm; Wt 87.5 kg
[~2018-02-15 12:53] MED LIST changes: +LACT1CAP8 PO; +ONDA4TAB8 PO; +PANT40TA2 PO; +SUCR1TAB36 PO
--- OUTSIDE RECORDS SUMMARY | 2018-02-15 13:07 | XMS REPORT | Continuity of Care Document ---
Author Author [facility] Ctr of [facility] Ctr of [facility] Address Unknown Phone Unavailable Allergies Active Description Code Type Severity Reaction Onset Reported/Identified Relationship to Patient Clinical Status Yes ampicillin [id number] Drug Allergy Unknown N/A 11/21/2006 Yes ampicillin Drug Allergy N/A N/A 09/29/2009 Yes ampicillin Drug Allergy 09/29/2009 Yes Cipro Drug Allergy N/A N/A 07/28/2012 Yes Cipro Drug Allergy 07/28/2012 Yes Cymbalta Drug Allergy N/A N/A 02/23/2013 Yes ciprofloxacin [id number] Drug Allergy Unknown N/A 12/20/2015 Yes ciprofloxacin HCl [id number] Drug Allergy Unknown N/A 12/20/2015 Yes duloxetine [id number] Drug Allergy Unknown N/A 12/20/2015 Yes vancomycin [id number] Drug Allergy Moderate RED MAN SYNDRON 05/12/2017 [...] 789.00 ABDOMINAL PAIN UNSPECIFIED SITE 09/29/2009 SANA AHNKINS CAROLE A 780.79 OTHER MALAISE AND FATIGUE [...] SYNDROME 12/14/2010 611.71 BREAST PAIN 12/14/2010 SANA PAINT TRIMMER PIPE BOWLS, CAROLE A 355.5 TARSAL TUNNEL SYNDROME 12/14/2010 SANA PAINT TRIMMER PIPE BOWLS, CAROLE A 611.71 BREAST PAIN 12/14/2010 DAVID SNYDER APRN T 355.5 TARSAL TUNNEL SYNDROME 12/14/2010 LILLIAN HANKINS DAVID T 611.71 BREAST PAIN 12/14/2010 SALAS DO, FINN K 355.5 TARSAL TUNNEL SYNDROME 12/14/2010 SALAS DO, FINN K 611.71 BREAST PAIN 12/14/2010 SANA PAINT TRIMMER PIPE BOWLS, CAROLE A 355.5 TARSAL TUNNEL SYNDROME 12/14/2010 SANA PAINT TRIMMER PIPE BOWLS, CAROLE A 611.71 BREAST PAIN 01/03/2011 SALAS [...] 782.2 LOCAL SUPRFICIAL SWELLNG 12/09/2013 SHAWNA NG MUSICAL INSTRUMENT MAKER OR REPAIRER Ot 739.4 SOMAT DYSFUNC SACRAL REG 12/09/2013 SHAWNA NG MUSICAL INSTRUMENT MAKER OR REPAIRER Ot V57.1 PHYSICAL THERAPY NEC 03/15/2014 TRINA CURRY, AMARJIT Harrison Ot 569.3 RECTAL ANAL HEMORRHAGE 03/15/2014 AMARJIT MENA MD Ot 787.03 VOMITING ALONE 03/15/2014 TRNIA CURRY, AMARJIT Harrison Ot 787.91 DIARRHEA 03/15/2014 [...] BRAYDON Burton Ot 611.0 02/18/2015 SANASERACAROLE A PAINT TRIMMER PIPE BOWLS Ot 611.0 02/18/2015 NORRIS BROWNLEE PAINT TRIMMER PIPE BOWLS Ot V58.49 OTHER SPECIFIED AFTERCARE FOLLOWING SURG [...] CELE CURRY, BRAYDON Burton Ot 611.0 05/30/2015 CELE CURRY, BRAYDON Burton Ot 611.0 05/30/2015 CAROLE [...] 06/12/2015 CAROLE HOOD APRN Ot 611.0 06/26/2015 [facility] DO, CHANDROUTIE Ot T85.79XS INFECT/INFLM REACT DUE TO OTH INT PROSTH 07/04/2015 [place] DO, CHANDROUTIE Ot Z48.01 07/05/2015 [place] DO, CHANDROUTIE Ot Z48.01 07/07/2015 [place] DO, CHANDROUTIE Ot Z48.01 07/08/2015 [place] DO, CHANDROUTIE Ot Z48.01 07/09/2015 [place] DO, CHANDROUTIE Ot Z48.01 07/11/2015 [facility] DO, CHANDROUTIE Ot Z48.01 07/13/2015 [facility] DO, CHANDROUTIE Ot Z48.01 07/14/2015 [place] DO, CHANDROUTIE Ot Z48.01 07/15/2015 [facility] DO, CHANDROUTIE Ot Z48.01 07/16/2015 [facility] DO, CHANDROUTIE Ot Z48.01 07/19/2015 [facility] DO, CHANDROUTIE Ot Z48.01 07/20/2015 [facility] DO, CHANDROUTIE Ot Z48.01 07/21/2015 [facility] DO, CHANDROUTIE Ot Z48.01 2015 [facility] DO, CHANDROUTIE Ot Z48.01 07/23/2015 [place] DO, [...] FOR CHANGE OR REMOVAL OF SURGI 09/25/2015 [facility] DO, CHANDROUTIE Ot Z48.01 09/26/2015 [facility] DO, CHANDROUTIE Ot Z48.01 09/26/2015 [place] DO, CHANDROUTIE Ot Z48.01 09/26/2015 [facility] DO, CHANDROUTIE Ot Z48.01 09/27/2015 [facility] DO, WAQASROUTIE Ot Z48.01 09/27/2015 [facility] DO, WAQASROUTIE Ot Z48.01 09/28/2015 [facility] DO, WAQASROUTIE Ot Z48.01 09/29/2015 [facility] DO, WAQASROUTIE Ot Z48.01 09/29/2015 [facility] DO, WAQASROUTIE Ot Z48.01 09/30/2015 [facility] DO, WAQASROUTIE Ot Z48.01 10/01/2015 [facility] DO, WAQASROUTIE Ot Z48.01 10/03/2015 [facility] DO, WAQASROUTIE Ot Z48.01 10/05/2015 [facility] DO, WAQASROUTIE Ot Z48.01 10/08/2015 [facility] DO, WAQASROUTIE Ot Z48.01 10/10/2015 [facility] DO, WAQASROUTIE Ot Z48.01 10/12/2015 [facility] DO, WAQASROUTIE Ot Z48.01 10/14/2015 [facility] DO, WAQASROUTIE Ot Z48.01 10/15/2015 [facility] DO, WAQASROUTIE Ot Z48.01 12/20/2015 Ot 625.9 [...] UNSPECIFIED 05/22/2016 EMILIANA HUNT MD, Ot L92.8 [facility] GRANULOMATOUS DISORDERS OF THE SKIN, 05/22/2016 EMILIANA [...] INFLAM DISEASE OF BREAST 08/19/2016 CAROLE HOOD PAINT TRIMMER PIPE BOWLS Ot 611.0 INFLAM DISEASE OF BREAST 08/19/2016 [...] INFLAM DISEASE OF BREAST 10/21/2016 SHAWNA NG MUSICAL INSTRUMENT MAKER OR REPAIRER Ot V70.0 ROUTINE MEDICAL EXAM 10/21/2016 DEANDRE [...] Ot F17.210 NICOTINE DEPENDENCE, CIGARETTES, UNCOMPL 01/23/2017 CLEE CURRY, BRAYDON Burton Ot F41.9 ANXIETY DISORDER, [...] DISEASE OF BREAST 04/02/2017 SANA, CAROLE A PAINT TRIMMER PIPE BOWLS Ot 611.0 INFLAM DISEASE OF BREAST 04/02/2017 SHAWNA NG MUSICAL INSTRUMENT MAKER OR REPAIRER Ot V70.0 ROUTINE MEDICAL EXAM 04/02/2017 RACHEL CARRERA MD Ot R10.9 UNSPECIFIED ABDOMINAL PAIN 04/02/2017 RACHEL CARRERA MD Ot L92.8 OTH GRANULOMATOUS DISORDERS OF THE SKIN, 04/02/2017 RACHEL CARRERA MD Ot L98.491 NON-PRS CHRONIC [...] INFLAM DISEASE OF BREAST 05/11/2017 CAROLE HOOD PAINT TRIMMER PIPE BOWLS Ot 611.0 INFLAM DISEASE OF BREAST 05/11/2017 SHAWNA NG MUSICAL INSTRUMENT MAKER OR REPAIRER Ot V70.0 ROUTINE MEDICAL EXAM 05/11/2017 RACHEL [...] Raines Ot L02.91 CUTANEOUS ABSCESS, UNSPECIFIED 07/13/2017 ECLE CURRY, BRAYDON Burton Ot K43.9 VENTRAL HERNIA WITHOUT OBSTRUCTION OR GA 07/13/2017 CELE CURRY, BRAYDON Burton Ot Z90.49 ACQUIRED ABSENCE OF OTHER SPECIFIED PART 2017 CELE CURRY, BRAYDON Burton Ot K43.9 VENTRAL HERNIA WITHOUT OBSTRUCTION OR GA 2017 CELE CURRY, BRAYDON Burton Ot Z90.49 ACQUIRED ABSENCE OF OTHER SPECIFIED PART 10/13/2017 MIAN GOMEZ DO Ot F17.210 NICOTINE DEPENDENCE, CIGARETTES, UNCOMPL 10/13/2017 MIAN GOMEZ DO Ot F32.9 MAJOR DEPRESSIVE DISORDER, SINGLE EPISOD 10/13/2017 MIAN GOMEZ DO Ot F90.9 ATTENTION-DEFICIT HYPERACTIVITY DISORDER 10/13/2017 MIAN GOMEZ DO Ot G43.909 MIGRAINE, UNSP, NOT INTRACTABLE, WITHOUT 10/13/2017 MIAN GOMEZ DO Ot K21.9 GASTRO-ESOPHAGEAL REFLUX DISEASE WITHOUT 10/13/2017 MIAN GOMEZ DO Ot K43.2 INCISIONAL HERNIA WITHOUT OBSTRUCTION OR 10/13/2017 MIAN GOMEZ DO Ot R10.13 EPIGASTRIC PAIN 10/13/2017 MIAN GOMEZ DO Ot Z80.0 FAMILY HISTORY OF MALIGNANT NEOPLASM OF 10/13/2017 MIAN GOMEZ DO Ot Z82.49 FAMILY HX OF ISCHEM HEART DIS AND OTH DI 10/13/2017 MIAN GOMEZ DO Ot Z87.01 PERSONAL HISTORY OF PNEUMONIA (RECURRENT 10/13/2017 MIAN GOMEZ DO Ot Z87.19 PERSONAL HISTORY OF OTHER DISEASES OF TH 10/13/2017 MIAN GOMEZ DO Ot Z87.440 PERSONAL HISTORY OF URINARY (TRACT) INFE 10/13/2017 JASON MIAN MARAVILLA Ot Z87.59 PERSONAL HISTORY OF COMP OF PREG, CHLDBR 10/13/2017 JASON BLANCA MARAVILLAA Dustin Ot Z90.710 ACQUIRED ABSENCE OF BOTH CERVIX AND UTER 10/13/2017 RM MARAVILLA FABI Raines Ot Z48.01 ENCOUNTER FOR CHANGE OR REMOVAL OF SURGI 10/13/2017 RM MARAVILLA FABI Raines Ot L02.91 CUTANEOUS ABSCESS, UNSPECIFIED 10/14/2017 JASON MIAN MARAVILLA Ot F17.210 NICOTINE DEPENDENCE, CIGARETTES, UNCOMPL 10/14/2017 JASON MIAN MARAVILLA Ot F32.9 MAJOR DEPRESSIVE DISORDER, SINGLE EPISOD 10/14/2017 JASON MIAN MARAVILLA Ot F90.9 ATTENTION-DEFICIT HYPERACTIVITY DISORDER 10/14/2017 JASON MIAN MARAVILLA Ot G43.909 MIGRAINE, UNSP, NOT INTRACTABLE, WITHOUT 10/14/2017 JASON BLANCA MARAVILLAA Dustin Ot K21.9 GASTRO-ESOPHAGEAL REFLUX DISEASE WITHOUT 10/14/2017 JASON DOMIAN Ot K43.2 INCISIONAL HERNIA WITHOUT OBSTRUCTION OR 10/14/2017 JASON MIAN MARAVILLA Ot R10.13 EPIGASTRIC PAIN 10/14/2017 JASON MIAN MARAVILLA Ot Z80.0 FAMILY HISTORY OF MALIGNANT NEOPLASM OF 10/14/2017 JSAON MIAN MARAVILLA Ot Z82.49 FAMILY HX OF ISCHEM HEART DIS AND OTH DI 10/14/2017 JASON MIAN MARAVILLA Ot Z87.01 PERSONAL HISTORY OF PNEUMONIA (RECURRENT 10/14/2017 JASON MIAN MARAVILLA Ot Z87.19 PERSONAL HISTORY OF OTHER DISEASES OF TH 10/14/2017 JASON MIAN MARAVILLA Ot Z87.440 PERSONAL HISTORY OF URINARY (TRACT) INFE 10/14/2017 MIAN GOMEZ DO Ot Z87.59 PERSONAL HISTORY OF COMP OF PREG, CHLDBR 10/14/2017 JASON MIAN MARAVILLA Ot Z90.710 ACQUIRED ABSENCE OF BOTH CERVIX AND UTER 10/14/2017 MIAN GOMEZ DO Ot F17.210 NICOTINE DEPENDENCE, CIGARETTES, UNCOMPL 10/14/2017 MIAN GOMEZ DO Ot F32.9 MAJOR DEPRESSIVE DISORDER, SINGLE EPISOD 10/14/2017 JASONMIAN Weber DO Ot F90.9 ATTENTION-DEFICIT HYPERACTIVITY DISORDER 10/14/2017 JASON MIAN Dustin Ot G43.909 MIGRAINE, UNSP, NOT INTRACTABLE, WITHOUT 10/14/2017 JASON MARAVILLAMIAN Ot K21.9 GASTRO-ESOPHAGEAL REFLUX DISEASE WITHOUT 10/14/2017 JASON MIAN Ot K43.2 INCISIONAL HERNIA WITHOUT OBSTRUCTION OR 10/14/2017 JASON MIAN MARAVILLA Ot R10.13 EPIGASTRIC PAIN 10/14/2017 JASON MIAN Ot Z80.0 FAMILY HISTORY OF MALIGNANT NEOPLASM OF 10/14/2017 JASON MIAN Ot Z82.49 FAMILY HX OF ISCHEM HEART DIS AND OTH DI 10/14/2017 JASON MIAN MARAVILLA Ot Z87.01 PERSONAL HISTORY OF PNEUMONIA (RECURRENT 10/14/2017 JASON MIAN Ot Z87.19 PERSONAL HISTORY OF OTHER DISEASES OF TH 10/14/2017 JASON MIAN Ot Z87.440 PERSONAL HISTORY OF URINARY (TRACT) INFE 10/14/2017 JASON MIAN Ot Z87.59 PERSONAL HISTORY OF COMP OF PREG, CHLDBR 10/14/2017 JASON MIAN Ot Z90.710 ACQUIRED ABSENCE OF BOTH CERVIX AND UTER 02/15/2018 FABI ABDALLA DO Ot Z48.01 ENCOUNTER FOR CHANGE OR REMOVAL OF SURGI 02/15/2018 FABI ABDALLA DO Ot L02.91 CUTANEOUS ABSCESS, UNSPECIFIED Procedures Code Description [place] [address] THERAPUTIC INJ SQ/IM 07/28/2012 J0696 ROCEPHIN INJ 07/28/2012 37572 ROUTINE VENIPUNCTURE 09/23/2012 53593 US BREAST ULTRASOUND, LEFT 09/23/2012 73915 CBC 09/23/2012 BRAYDON OWENS 09/23/2012 24062 EKG, TRACING (IN-HOUSE) 02/23/2013 90064 ROUTINE VENIPUNCTURE 02/26/2013 94020 A1C (IN-HOUSE) 02/26/2013 24573 CMP 02/26/2013 67512 VITAMIN D 25-HYDROXY (D2,D3 , TOTAL) 02/26/2013 44950 TSH 02/26/2013 06628 CBC 02/26/2013 95397 US BREAST ULTRASOUND, LEFT 04/19/2013 18165 US GUIDE FOR BIOPSY 04/19/2013 74319 MAMMOGRAM DX, FRED 04/19/2013 68092 US BREAST ULTRASOUND, LEFT 05/04/2013 62331 MAMMOGRAM DX, FRED 05/04/2013 57946 US GUIDE FOR BIOPSY 05/05/2013 11107 THERAPUTIC INJ SQ/IM 08/25/2013 J1885 TORADOL INJ 08/25/2013 J2930 SOLUMEDROL INJ 08/25/2013 51456 MAMMOGRAM DX, FRED 09/24/2013 GENERAL S MOREONMARTHA PONCETT 09/02/2014 18729 MAMMOGRAM DX, LEFT 10/25/2014 08459 CULTURE WOUND (AEROBIC) 10/29/2014 [id number] EXTIRPATION OF MATTER FROM SMALL INTESTI 10/30/2016 [id number] RESECTION OF SMALL INTESTINE, OPEN APPRO 10/30/2016 [id number] DRAINAGE OF ABDOMINAL WALL , OPEN APPROAC 05/12/2017 Results Test Result Range Bacteria identification in isolate by anaerobe culture - 05/10/16 10:00 Bacteria identification in isolate by anaerobe culture NOANA NRG Gram stain microscopy - 05/10/16 10:00 GRAM STAIN RESULT NO WBC'S OR BACTERIA OBSERVED NRG Bacteria identification in wound by culture - 05/10/16 10:00 Bacteria identification in wound by culture [id number] NRG FREE TEXT EXTERNAL SENSITIVITY REPORTED 05/14/16 [...] 23:50 Bacteria identification in wound by culture [id number] NRG FREE TEXT EXTERNAL SENSITIVITY REPORTED 07/14/16 [...] STAIN RESULT FEW WBC'S, NO BACTERIA OBSERVED NR Bacteria identification in wound by culture - 01/22/17 00:16 Bacteria identification in wound by culture [id number] NR FREE TEXT EXTERNAL SENSITIVITY REPORTED AT 1556, 01-23-17 NRG QUANTITY OF GROWTH Moderate Growth NRG MRSA AGAR Screening test for MRSA is NEGATIVE (Final to follow) [facility] Bacterial susceptibility panel - 01/22/17 00:16 Oxacillin [...] 08:00 Bacteria identification in wound by culture [id number] NR FREE TEXT EXTERNAL SENSITIVITY REPORTED 05/14/17 [...] - 05/14/17 18:00 Bacterial blood culture NG NRG Complete blood count (CBC) with automated [...] blood basophil count (count/volume) 0.0 10*3/uL 0.0-0.1 CMP - 06/30/17 10:05 Glucose, Serum 98 mg/dL 65-99 BUN 11 mg/dL 6-20 Creatinine, Serum 0.85 mg/dL 0.57-1.00 eGFR If NonAfricn Am 88 mL/min/1.73 >59 eGFR If Africn Am 102 mL/min/1.73 >59 BUN/Creatinine Ratio 13 9-23 Sodium, Serum 142 mmol/L 134-144 Potassium, Serum 4.3 mmol/L 3.5-5.2 Chloride, Serum 102 mmol/L 96-106 Carbon Dioxide, Total 22 mmol/L 18-29 Calcium, Serum 9.3 mg/dL 8.7-10.2 Protein, Total, Serum 6.8 g/dL 6.0-8.5 Albumin, Serum 4.1 g/dL 3.5-5.5 Globulin, Total 2.7 g/dL 1.5-4.5 A/G Ratio 1.5 1.2-2.2 Bilirubin, Total <0.2 mg/dL 0.0-1.2 Alkaline Phosphatase, S 83 IU/L 39-117 AST (SGOT) 12 IU/L 0-40 ALT (SGPT) 16 IU/L 0-32 CBC With Differential/Platelet - 06/30/17 10:05 WBC 10.0 x10E3/uL 3.4-10.8 RBC 4.49 x10E6/uL 3.77-5.28 Hemoglobin 13.8 g/dL 11.1-15.9 Hematocrit 41.7 % 34.0-46.6 MCV 93 fL 79-97 MCH 30.7 pg 26.6-33.0 MCHC 33.1 g/dL 31.5-35.7 RDW 13.5 % 12.3-15.4 Platelets 282 x10E3/uL 150-379 Neutrophils 71 % Not Estab. Lymphs 21 % Not Estab. Monocytes 6 % Not Estab. Eos 2 % Not Estab. Basos 0 % Not Estab. Neutrophils (Absolute) 7.1 x10E3/uL 1.4-7.0 Lymphs (Absolute) 2.1 x10E3/uL 0.7-3.1 Monocytes(Absolute) 0.6 x10E3/uL 0.1-0.9 Eos (Absolute) 0.2 x10E3/uL 0.0-0.4 Baso (Absolute) 0.0 x10E3/uL 0.0-0.2 Immature Granulocytes 0 % Not Estab. Immature Grans (Abs) 0.0 x10E3/uL 0.0-0.1 Comp. Metabolic Panel (14) - 06/30/17 10:05 Glucose, Serum 98 mg/dL 65-99 BUN 11 mg/dL 6-20 Creatinine, Serum 0.85 mg/dL 0.57-1.00 eGFR If NonAfricn Am 88 mL/min/1.73 >59 eGFR If Africn Am 102 mL/min/1.73 >59 BUN/Creatinine Ratio 13 9-23 Sodium, Serum 142 mmol/L 134-144 Potassium, Serum 4.3 mmol/L 3.5-5.2 Chloride, Serum 102 mmol/L 96-106 Carbon Dioxide, Total 22 mmol/L 18-29 Calcium, Serum 9.3 mg/dL 8.7-10.2 Protein, Total, Serum 6.8 g/dL 6.0-8.5 Albumin, Serum 4.1 g/dL 3.5-5.5 Globulin, Total 2.7 g/dL 1.5-4.5 A/G Ratio 1.5 1.2-2.2 Bilirubin, Total <0.2 mg/dL 0.0-1.2 Alkaline Phosphatase, S 83 IU/L 39-117 AST (SGOT) 12 IU/L 0-40 ALT (SGPT) 16 IU/L 0-32 Lipid Panel - 06/30/17 10:05 Cholesterol, Total 174 mg/dL 100-199 Triglycerides 144 mg/dL 0-149 HDL Cholesterol 41 mg/dL >39 VLDL Cholesterol Lemuel 29 mg/dL 5-40 LDL Cholesterol Calc 104 mg/dL 0-99 Thyroid Kaufman Profile - 06/30/17 10:05 TSH 1.920 uIU/mL 0.450-4.500 Complete blood count (CBC) with automated white blood cell (WBC) differential - 10/13/17 00:15 Blood leukocytes automated count (number/volume) 9.9 10*3/uL 4.3-11.0 Blood erythrocytes automated count (number/volume) 4.09 10*6/uL 4.35-5.85 Venous blood hemoglobin measurement (mass/volume) 12.5 g/dL 11.5-16.0 Blood hematocrit (volume fraction) 37 % 35-52 Automated erythrocyte mean corpuscular volume 91 [foz_us] 80-99 Automated erythrocyte mean corpuscular hemoglobin (mass per erythrocyte) 31 pg 25-34 Automated erythrocyte mean corpuscular hemoglobin concentration measurement ( mass/volume) 34 g/dL 32-36 Automated erythrocyte distribution width ratio 12.2 % 10.0-14.5 Automated blood platelet count (count/volume) 259 10*3/uL 130-400 Automated blood platelet mean volume measurement 9.3 [foz_us] 7.4-10.4 Automated blood neutrophils/100 leukocytes 68 % 42-75 Automated blood lymphocytes/100 leukocytes 20 % 12-44 Blood monocytes/100 leukocytes 10 % 0-12 Automated blood eosinophils/100 leukocytes 2 % 0-10 Automated blood basophils/100 leukocytes 0 % 0-10 Blood neutrophils automated count (number/volume) 6.7 10*3 1.8-7.8 Blood lymphocytes automated count (number/volume) 2.0 10*3 1.0-4.0 Blood monocytes automated count (number/volume) 1.0 10*3 0.0-1.0 Automated eosinophil count 0.2 10*3/uL 0.0-0.3 Automated blood basophil count (count/volume) 0.0 10*3/uL 0.0-0.1 Comprehensive metabolic panel - 10/13/17 00:15 Serum or plasma sodium measurement (moles/volume) 141 mmol/L 135-145 Serum or plasma potassium measurement (moles/volume) 3.4 mmol/L 3.6-5.0 Serum or plasma chloride measurement (moles/volume) 105 mmol/L 98-107 Carbon dioxide 25 mmol/L 21-32 Serum or plasma anion gap determination (moles/volume) 11 mmol/L 5-14 Serum or plasma urea nitrogen measurement (mass/volume) 11 mg/dL 7-18 Serum or plasma creatinine measurement (mass/volume) 0.80 mg/dL 0.60-1.30 Serum or plasma urea nitrogen/creatinine mass ratio 14 NRG Serum or plasma creatinine measurement with calculation of estimated glomerular filtration rate > NRG Serum or plasma glucose measurement (mass/volume) 101 mg/dL 70-105 Serum or plasma calcium measurement (mass/volume) 9.2 mg/dL 8.5-10.1 Serum or plasma total bilirubin measurement (mass/volume) 0.3 mg/dL 0.1-1.0 Serum or plasma alkaline phosphatase measurement (enzymatic activity/volume) 70 U/L 40-136 Serum or plasma aspartate aminotransferase measurement (enzymatic activity/ volume) 12 U/L 5-34 Serum or plasma alanine aminotransferase measurement (enzymatic activity/volume ) 16 U/L 0-55 Serum or plasma protein measurement (mass/volume) 7.0 g/dL 6.4-8.2 Serum or plasma albumin measurement (mass/volume) 3.6 g/dL 3.2-4.5 Serum or plasma amylase measurement (enzymatic activity/volume) - 10/13/17 00: 15 Serum or plasma amylase measurement (enzymatic activity/volume) 39 U /L 25-125 Lipase - 10/13/17 00:15 Lipase 54 U/L 8-78 Complete urinalysis with reflex to culture - 10/13/17 01:50 Urine color determination YELLOW NRG Urine clarity [...] urobilinogen measurement by automated test strip (mass/volume) 1 mg/dL NORMAL Urine leukocyte esterase detection by dipstick 1+ NEGATIVE Automated urine sediment erythrocyte count by microscopy (number/high power field) NONE NRG Automated urine sediment leukocyte count by microscopy (number/high power field ) RARE NRG Bacteria detection in urine sediment by light microscopy TRACE NRG Squamous epithelial cells detection in urine sediment by light microscopy 2-5 NRG Crystals detection in urine sediment by light microscopy PRESENT NRG Casts detection in urine sediment by light microscopy NONE NRG Mucus detection in urine sediment by light microscopy LARGE NRG Complete urinalysis with reflex to culture NO NRG Calcium oxalate crystals detection in urine sediment by light microscopy LARGE NRG Encounters ACCT No. Visit Date/Time Discharge Status Pt. Type Provider Facility Loc./Unit Complaint [id number] 10/25/2014 17:22:00 10/25/2014 23:59:59 CLS Outpatient CAROLE HOOD APRN [id number] 09/02/2014 11:35:00 09/02/2014 23:59:59 CLS Outpatient FINN SALAS DO [id number] 08/25/2013 18:47:00 08/25/2013 23:59:59 CLS Outpatient LILLIAN PAINT TRIMMER PIPE BOWLSDAVID Myles [id number] 07/12/2013 15:56:00 07/12/2013 23:59:59 CLS Outpatient CAROLE HOOD APRN [id number] 11/19/2012 05:46:00 11/19/2012 23:59:59 CLS Outpatient [id number] 11/02/2012 16:39:00 11/02/2012 23:59:59 CLS Outpatient [id number] 10/19/2012 14:15:00 10/19/2012 23:59:59 CLS Outpatient FINN SALAS DO [id number] 09/23/2012 13:35:00 09/23/2012 23:59:59 [place] [id number] 07/28/2012 13:58:00 07/28/2012 23:59:59 CLS Outpatient FINN SALAS DO [id number] 04/12/2013 16:53:00 Document Registration [id number] 02/26/2013 08:27:00 Document Registration [id number] 02/23/2013 18:49:00 Document Registration [id number] 06/27/2015 13:14:09 ACT Document Registration [id number] 10/16/2017 16:40:00 10/16/2017 23:59:59 CLS Outpatient ANAND MYERS [facility] [id number] 06/30/2017 09:00:00 Document Registration [id number] 07/01/2017 12:09:00 Document Registration [id number] 10/12/2017 22:54:00 10/13/2017 02:48:00 DIS Emergency MIAN GOMEZ DO [facility] ER STOMACH PAIN,CRAMPS, [id number] 07/07/2017 11:43:00 07/07/2017 23:59:59 CLS Outpatient BRAYDON OAKLEY MD [facility] RAD AP R10.9, ABDOMINAL SWELLING R19.00 [id number] 06/15/2017 01:44:00 06/15/2017 23:59:59 CLS Preadmit GELLENDER DOFABI [facility] LAB AB [id number] 06/15/2017 01:02:00 06/15/2017 23:59:59 CLS Preadmit GELLENDER DOFABI [facility] 4TH RCR PERITONEAL CUTANEOUS FISTULA/ABD WALL ABSCESS [id number] 05/20/2017 12:53:00 06/14/2017 00:01:00 DIS Outpatient FABI ABDALLA DO [facility] LAB AB [id number] 05/19/2017 13:30:00 06/14/2017 00:01:00 DIS Outpatient GELLENFABI GARCIA DO [facility] 4TH RCR PERITONEAL CUTANEOUS FISTULA/ABD WALL ABSCESS [id number] 05/12/2017 02:15:00 05/15/2017 20:10:00 DIS Inpatient BRAYDON OAKLEY MD [facility] 4TH PERITONEAL CUTANEOUS FISTULA/ABD WALL ABSCESS [id number] 04/03/2017 08:03:00 04/03/2017 23:59:59 CLS Outpatient BRAYDON OAKLEY MD [facility] RAD NONHEALING SURGICAL WOUND,ABD PAIN R10.9 [id number] 01/29/2017 00:39:00 01/29/2017 02:04:00 DIS Emergency JED CURRY, TYE Cowan [facility] ER CELLULITIS ON STOMACH [id number] 01/22/2017 01:53:00 01/23/2017 09:45:00 DIS Inpatient CELE CURRY, BRAYDON Burton [facility] 4TH SEPSIS,ABDOMINAL WALL CELLULITIS [id number] 10/30/2016 12:02:00 11/01/2016 14:24:00 DIS Inpatient CELE CURRY, BRAYDON Burton [facility] 4TH INFECTED MESH [id number] 10/24/2016 10:40:00 10/24/2016 11:05:00 DIS Outpatient BRAYDON OAKLEY MD [facility] PREOP INFECTED MESH [id number] 10/14/2016 09:09:00 10/14/2016 23:59:59 CLS Outpatient BRAYDON OAKLEY MD [facility] RAD INFECTED MESH [id number] 07/12/2016 22:55:00 07/13/2016 01:15:00 DIS Emergency DAVID RAY DO [facility] ER DRAINAGE OF STOMACH WOUND [id number] 07/01/2016 15:16:00 07/01/2016 23:59:59 CLS Preadmit EMILIANA HUNT MD [facility] WOUNDCARE [id number] 05/29/2016 15:37:00 06/14/2016 12:00:00 DIS Outpatient EMILIANA HUNT MD [facility] WOUND[facility] [id number] 05/10/2016 09:40:00 05/10/2016 23:59:59 CLS Outpatient EMILIANA HUNT MD [facility] WOUND[facility] [id number] 02/19/2016 09:39:00 02/19/2016 14:42:00 [id number] 02/16/2016 09:09:00 02/16/2016 10:32:00 DIS Outpatient NATALIA MORENO DO [facility] PREOP [id number] 02/08/2016 13:47:00 02/08/2016 23:59:59 CLS Outpatient NATALIA MORENO DO [facility] RAD WOUND UMBILICAL AREA [id number] 02/07/2016 09:05:00 02/07/2016 12:00:00 DIS Outpatient EMILIANA HUNT MD [facility] WOUND[facility] [id number] 02/05/2016 16:49:00 02/05/2016 23:59:59 CLS Outpatient RACHEL CARRERA MD Via [facility] RAD NON PRESSURE CHRONIC ULCER [id number] 02/02/2016 11:30:00 02/02/2016 23:59:59 CLS Outpatient RACHEL CARRERA MD Via [facility] LAB DISRUPTION OF EXTERNAL OPERATIONCHRONIS ULSER [id number] 12/26/2015 00:11:00 12/26/2015 23:59:59 CLS Preadmit OLIVIA ROSE DO [facility] [id number] 10/15/2015 08:49:00 12/25/2015 00:01:00 DIS Outpatient OLIVIA ROSE DO [facility] [id number] 12/20/2015 22:03:00 12/20/2015 23:46:00 DIS Emergency SATNAM LOONEY [facility] ER SKIN RASH/WOUND [id number] 09/25/2015 09:15:00 09/25/2015 00:01:00 DIS Outpatient WAQAS ROSE DOROUTIE [facility] [id number] 06/23/2015 11:33:00 06/26/2015 17:50:00 DIS Outpatient WAQAS ROSE DOROUTIE [facility] [id number] 06/10/2015 02:58:00 06/12/2015 08:05:00 DIS Inpatient KHLOE ROSE DOTIE [facility] SURGICAL ABDDOMINAL WALL ABSCESS + CELLULITIS [id number] 06/01/2015 12:43:00 06/01/2015 23:59:59 CLS Outpatient SHAWNA NG [facility] [id number] 05/29/2015 18:04:00 05/30/2015 10:40:00 DIS Inpatient OLIVIA ROSE DO [facility] SURGICAL CELLULITIS ABD WALL,LEUKOCYTOSIS [id number] 03/29/2015 21:22:00 03/30/2015 00:01:00 DIS Emergency TYE ADKINS MD Via [facility] ABD PAIN [id number] 02/18/2015 16:01:00 02/18/2015 16:26:00 DIS Emergency NORRIS BROWNLEE [employer] [facility] [id number] 02/15/2015 22:31:00 02/16/2015 00:47:00 DIS Emergency SATNAM LOONEY [facility] PAIN UNDER R ARM [id number] 11/01/2014 13:30:00 11/01/2014 23:59:59 CLS Outpatient CAROLE HOOD [employer] [facility] RECURRENT LEFT MASTITIS [id number] 03/15/2014 09:50:00 03/15/2014 12:32:00 DIS Emergency AMARJIT MENA MD [facility] ABD PAIN [id number] 11/25/2013 09:18:00 12/09/2013 13:54:00 DIS Outpatient SHAWNA NG [facility] REHAB [id number] 07/18/2013 12:31:00 07/18/2013 15:40:00 DIS Emergency TYE ADKINS MD [facility] ER INFECTION ON BREAST [id number] 03/26/2013 13:10:00 03/26/2013 23:59:59 CLS Outpatient BRAYDON OAKLEY MD [facility] LT BREAST ABCESS [id number] 03/25/2013 12:54:00 03/25/2013 23:59:59 CLS Outpatient BRAYDON OAKLEY MD [facility] RECURRENT ABCESS [id number] 03/21/2013 11:59:00 03/21/2013 15:56:00 DIS Emergency SATNAM LOONEY [facility] L BREAST INFECTIN AND KIDNEY INFECTION [id number] 02/15/2018 12:55:00 ACT Emergency TOMAS CURRY, XIAO Chan [facility] STIFFNESS IN NECK, HEADACHE, FEVER [id number] 10/14/2016 09:20:00 Document Registration [id number] 06/20/2015 14:38:00 Document Registration [id number] 02/18/2015 16:02:00 Document Registration [id number] 10/26/2012 10:05:00 Document Registration [id number] 10/21/2012 12:01:00 Document Registration [id number] 10/06/2012 11:00:00 Document Registration [id number] 07/30/2012 16:30:00 Document Registration [id number] 02/12/2012 09:15:00 Document Registration [id number] 12/02/2011 09:29:00 Document Registration [id number] 11/27/2011 15:35:00 Document Registration [id number] 11/25/2011 17:02:00 Document Registration [id number] 11/24/2011 12:10:00 Document Registration [id number] 10/24/2011 05:48:00 Document Registration [id number] 10/17/2011 10:07:00 Document Registration [id number] 10/01/2011 12:04:00 Document Registration [id number] 09/04/2011 16:07:00 Document Registration [id number] 08/15/2011 08:01:00 Document Registration [id number] 06/16/2011 13:19:00 Document Registration [id number] 01/21/2011 05:39:00 Document Registration [id number] 01/16/2011 14:24:00 Document Registration [id number] 01/02/2011 13:47:00 Document Registration [id number] 12/09/2010 14:48:00 Document Registration [id number] 09/14/2010 09:03:00 Document Registration [id number] 08/28/2010 22:00:00 Document Registration [id number] 08/13/2010 16:53:00 Document Registration [id number] 03/31/2010 15:50:00 Document Registration [id number] 03/26/2010 11:09:00 Document Registration [id number] 03/23/2010 08:13:00 Document Registration [id number] 02/08/2010 15:20:00 Document Registration [id number] 08/11/2017 16:02:06 08/11/2017 23:59:59 [facility] Outpatient Ángel CURRY, Oc
[2018-02-15] MEDS ORDERED: NS IV 500 ML 500 ML IV ONE (13:52)
[2018-02-15] MEDS ORDERED: NS IV 1000 ML 1,000 ML IV SCH (13:52)
[2018-02-15] MEDS ORDERED: fentaNYL INJECTION 100 MCG/2 ML AMP IVP ONE (14:00)
[2018-02-15] MEDS ORDERED: AMPH15CA5 (14:00)
[2018-02-15] MEDS ORDERED: ONDANSETRON 4 MG/2 ML (SDV) Z0FRAN IVP PRN (14:00)
[2018-02-15] MEDS ORDERED: ACETAMINOPHEN 500 MG TAB (TYLENOL) PO PRN (14:00)
--- NOTE | 2018-02-15 14:00 | ED Abdominal Pain ---
General Chief Complaint: Fever-Adult/Adol Stated Complaint: STIFFNESS IN NECK, HEADACHE, FEVER Source of Information: Patient Exam Limitations: No Limitations History of Present Illness Date Seen by Provider: Feb 15, 2018 Time Seen by Provider: 13:47 Initial Comments Patient presents to ER by private conveyance with a chief complaint she's had fever Tmax 103 Fahrenheit for the past 2 days with nausea without vomiting and abdominal pain around the site of her ventral hernia that has had abscesses in the past. She also is having a headache and neck stiffness. This is the first been seen for this. She has plans to get down to [place] to have surgical revision of her ventral hernia but her plans are limited by her financial means. She was last seen in July for abscess. She is not having any diarrhea or constipation. She's had some redness and felt some popping sensation under the skin around her hernia. Drains small amount of purulent material every day for the past day is not draining anything. She is not having any dysuria, cough, shortness of breath. Allergies and Home Medications Allergies Coded Allergies: vancomycin (Verified Allergy, Intermediate, RED MAN SYNDRONE, 05/12/17) ciprofloxacin (Unverified Allergy, Unknown, 12/20/15) ciprofloxacin HCl (Unverified Allergy, Unknown, 12/20/15) duloxetine (Verified Allergy, Unknown, 12/20/15) Home Medications Hydrocodone Bit/Acetaminophen 1 Tab Tab, 1 EACH PO Q4H Prescribed by: MIAN GOMEZ on 10/13/17224 Lactobacillus Acidophilus 1 Each Capsule, 2 EACH PO QID Prescribed by: MIAN GOMEZ on 10/13/17224 Ondansetron 4 Mg Tab.rapdis, 4 MG PO Q4H Prescribed by: MIAN GOMEZ on 10/13/17225 Pantoprazole Sodium 40 Mg Tablet.dr, 40 MG PO DAILY Prescribed by: MIAN GOMEZ on 10/13/17224 Sucralfate 1 Gm Tablet, 1 GM PO QIDACHS Prescribed by: MIAN GOMEZ on 10/13/17224 Patient Home Medication List Home Medication List Reviewed: Yes Review of Systems Constitutional: chills; No diaphoresis; fever, malaise, weakness EENTM: No Blurred Vision, No Double Vision Respiratory: Denies Cough, Denies Shortness of Air Cardiovascular: Denies Chest Pain, Denies Edema Gastrointestinal: Denies Abdomen Distended, Denies Constipated, Denies Diarrhea ; Nausea Genitourinary: Denies Burning, Denies Discharge, Denies Drainage Musculoskeletal: No back pain, No joint pain Skin: see HPI Past Vgecluh-Tusmtn-Vpvzjc Hx Patient Social History Recreational Drug Use: No Smoking Status: Current Everyday Smoker Type Used: Cigarettes 2nd Hand Smoke Exposure: Yes Recent Foreign Travel: No Contact w/Someone Who Travel: No Recent Hopitalizations: No Immunizations Up To Date Tetanus Booster (TDap): Less than 5yrs Date of Pneumonia Vaccine: Sep 15, 2009 Date of Influenza Vaccine: Jul 11, 2016 Seasonal Allergies Seasonal Allergies: No Past Medical History Surgeries: Yes (LT BREAST BX AND MULTIPLE LT BREAST DEBRIDEMENTS, HERNIA SX x6 , C/S x4) Abdominal, Breast, Section, Gallbladder, 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 Respiratory: Yes Pneumonia Currently Using CPAP: No Currently Using BIPAP: No Cardiac: Yes (MITRAL VALVE PROLAPSE) Heart Murmur, Valvular Heart Disease Neurological: Yes Headaches /Migraines 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 Disorders: No Female 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 Disorders: Endometriosis [employer]RE[employer] History: 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 Sexually Transmitted Disease: No HIV/AIDS: No Genitourinary: No UTI-Chronic Gastrointestinal: Yes (UMBILICAL & INCISIONAL HERNIA, GASTRITIS) Abdominal Hernia, Gastroesophageal Reflux Musculoskeletal: Yes Degenerate Disk Disease, Scoliosis, Chronic Back Pain Endocrine: No Loss of Vision: Denies Hearing Impairment: Denies Cancer: No Psychosocial: Yes ADD/ADHD, Depression Integumentary: Yes (CHRONIC BREAST INFECTIONS, ABDOMINAL WALL CELLULITIS) Psoriasis Blood Disorders: No Adverse Reaction/Blood Tranf: No Family Medical History Arthritis 19 MOTHER Asthma 19 MOTHER G8 BROTHER Cardiovascular disease 19 FATHER Colon cancer Deafness or hearing loss 19 MOTHER (grandfather) Diabetes mellitus 19 FATHER Drug abuse G8 BROTHER Gastroenteritis G8 SISTER (CROHNS) Headache disorder 19 MOTHER Hypertension 19 FATHER 19 MOTHER Myocardial infarction 19 FATHER Psychosocial problem 19 MOTHER Respiratory disorder 19 FATHER Cancer, GI Disease Physical Exam Vital Signs Vital Signs - First Documented 02/15/18 13:45 Temp 99.8 Pulse 100 Resp 18 B/P (MAP) 123/80 (94) Pulse Ox 98 Capillary Refill : General Appearance: WD/WN, no apparent distress HEENT: PERRL/EOMI, normal ENT inspection, TMs normal, pharynx normal (oral mucosa is mildly dry) Neck: full range of motion, supple, normal inspection, tender lateral (elliot) Respiratory: chest non-tender, lungs clear, normal breath sounds, no respiratory distress, no accessory muscle use Cardiovascular: normal peripheral pulses, regular rate, rhythm, no edema Peripheral Pulses: 2+ Radial Pulses (R), 2+ Radial Pulses (L) Gastrointestinal: normal bowel sounds, non tender, soft Extremities: normal range of motion, non-tender, normal inspection, normal capillary refill Neurologic/Psychiatric: coater carbon paper II-XII nml as tested, alert, normal mood/affect, oriented x 3 Skin: normal color, warm/dry, other (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 No palpable fluctuance but tenderness all around it and some mild to moderate erythema surrounding the skin on her ventral abdomen.) Focused Exam Lactate Level 02/15/18 13:30: Lactic Acid Level 1.31 Lactic Acid Level Laboratory Tests Test 02/15/18 13:30 Lactic Acid Level 1.31 MMOL/L (0.50-2.00) Progress/Results/Core Measures Results/Orders Lab Results Laboratory Tests Test 02/15/18 13:30 02/15/18 15:05 Range/Units White Blood Count 4.9 4.3-11.0 10^3/uL Red Blood Count 4.66 4.35-5.85 10^6/uL Hemoglobin 13.9 11.5-16.0 G/DL Hematocrit 42 35-52 % Mean Corpuscular Volume 91 80-99 FL Mean Corpuscular Hemoglobin 30 25-34 PG Mean Corpuscular Hemoglobin Concent 33 32-36 G/DL Red Cell Distribution Width 13.4 10.0-14.5 % Platelet Count 167 130-400 10^3/uL Mean Platelet Volume 9.7 7.4-10.4 FL Neutrophils (%) (Auto) 76 H 42-75 % Lymphocytes (%) (Auto) 17 12-44 % Monocytes (%) (Auto) 7 0-12 % Eosinophils (%) (Auto) 0 0-10 % Basophils (%) (Auto) 0 0-10 % Neutrophils # (Auto) 3.8 1.8-7.8 X 10^3 Lymphocytes # (Auto) 0.8 L 1.0-4.0 X 10^3 Monocytes # (Auto) 0.3 0.0-1.0 X 10^3 Eosinophils # (Auto) 0.0 0.0-0.3 10^3/uL Basophils # (Auto) 0.0 0.0-0.1 10^3/uL Prothrombin Time 13.1 12.2-14.7 SEC INR Comment 1.0 0.8-1.4 Activated Partial Thromboplast Time 27 24-35 SEC Sodium Level 141 135-145 MMOL/L Potassium Level 3.9 3.6-5.0 MMOL/L Chloride Level 107 98-107 MMOL/L Carbon Dioxide Level 23 21-32 MMOL/L Anion Gap 11 5-14 MMOL/L Blood Urea Nitrogen 8 7-18 MG/DL Creatinine 0.85 0.60-1.30 MG/DL Estimat Glomerular Filtration Rate > 60 BUN/Creatinine Ratio 9 Glucose Level 121 H 70-105 MG/DL Lactic Acid Level 1.31 0.50-2.00 MMOL/L Calcium Level 8.9 8.5-10.1 MG/DL Total Bilirubin 0.3 0.1-1.0 MG/DL Aspartate Amino Transf (AST/SGOT) 28 5-34 U/L Alanine Aminotransferase (ALT/SGPT) 33 0-55 U/L Alkaline Phosphatase 74 40-136 U/L Total Protein 7.0 6.4-8.2 GM/DL Albumin 3.8 3.2-4.5 GM/DL Urine Color YELLOW Urine Clarity CLEAR Urine pH 6.5 5-9 Urine Specific [place] 1.015 L 1.016-1.022 Urine Protein 2+ H NEGATIVE Urine Glucose (UA) NEGATIVE NEGATIVE Urine Ketones NEGATIVE NEGATIVE Urine Nitrite NEGATIVE NEGATIVE Urine Bilirubin NEGATIVE NEGATIVE Urine Urobilinogen NORMAL NORMAL MG/DL Urine Leukocyte Esterase NEGATIVE NEGATIVE Urine RBC (Auto) NEGATIVE NEGATIVE Urine RBC NONE /HPF Urine WBC NONE /HPF Urine Squamous Epithelial Cells 2-5 /HPF Urine Crystals NONE /LPF Urine Bacteria NEGATIVE /HPF Urine Casts NONE /LPF Urine Mucus NEGATIVE /LPF Urine Culture Indicated NO My Orders Orders - HAMMAD BEARD Ct Abdomen/Pelvis W (02/15/18 13:52) Cbc With Automated Diff (02/15/18 13:52) Comprehensive Metabolic Panel (02/15/18 13:52) Lactic Acid Analyzer (02/15/18 13:52) Blood Culture (02/15/18 13:52) Sputum Culture (02/15/18 13:52) Ua Culture If Indicated (02/15/18 13:52) Protime With Inr (02/15/18 13:52) Partial Thromboplastin Time (02/15/18 13:52) Chest 1 View, Ap/Pa Only (02/15/18 13:52) O2 (02/15/18 13:52) Ondansetron Injection (Zofran Injectio (02/15/18 14:00) Acetaminophen Tablet (Tylenol Tablet) (02/15/18 14:00) Saline Lock/Iv-Start (02/15/18 13:52) Saline Lock/Iv-Start (02/15/18 13:52) Piperacillin Sodium/Tazobactam (Zosyn Vi (02/15/18 14:00) Vital Signs Adult Sepsis Patie Q1H (02/15/18 13:52) Remove Rings In Anticipation O (02/15/18 13:52) Saline Lock/Iv-Start (02/15/18 13:52) Ns Iv 500 Ml (Sodium Chloride 0.9%) (02/15/18 13:52) Ns Iv 1000 Ml (Sodium Chloride 0.9%) (02/15/18 13:52) Fentanyl Injection (Sublimaze Injection (02/15/18 14:00) Iohexol Injection (Omnipaque 350 Mg/Ml 1 (02/15/18 14:15) Ns (Ivpb) (Sodium Chloride 0.9% Ivpb Bag (02/15/18 14:15) Medications Given in ED Current Medications Medications Dose Ordered Sig/Sheila Route Start Time Stop Time Status Last Admin Dose Admin Acetaminophen 1,000 mg ONCE PRN PO 02/15/18 14:00 02/15/18 15:11 DC 02/15/18 15:11 1,000 MG Fentanyl Citrate 50 mcg ONCE ONCE IVP 02/15/18 14:00 02/15/18 14:01 DC 02/15/18 15:10 50 MCG Ondansetron HCl 4 mg ONCE PRN IVP 02/15/18 14:00 02/15/18 15:11 DC 02/15/18 15:10 4 MG Piperacillin Sod/ Tazobactam Sod 4.5 gm/Sodium Chloride 100 ml @ 200 mls/hr ONCE ONCE IV 02/15/18 14:00 02/15/18 14:29 DC 02/15/18 15:37 200 MLS/HR Sodium Chloride 100 ml ONCE ONCE IV 02/15/18 14:15 02/15/18 14:16 DC 02/15/18 14:18 100 ML Vital Signs/I&O 02/15/18 13:45 Temp 99.8 Pulse 100 Resp 18 B/P (MAP) 123/80 (94) Pulse Ox 98 Progress Progress Note : Time: 14:00 Progress Note Patient is septic based on vital signs. Strong concern for being her recurrent abdominal abscess. With the stiffness in her neck but no neurologic symptoms is probably his body aches from her sepsis however if we do not find an obvious source of her infection and her initial workup then we could consider other sources. There is no physical evidence for upper respiratory tract infection or pulmonary. We'll start her on some Zosyn. 20 mL/kg of normal saline is about 1500 cc per 175 pound female. She took Motrin 3 hours prior to arrival. We will give her some Tylenol and fentanyl for her abdominal pain. Diagnostic Imaging Diagonstic Imaging: Xray Plain Films/CT/US/NM/MRI: chest (1v) Comments [facility] [place] [place] NAME: JEANNA MILLIGAN [facility] REC#: [id number] PT STATUS: REG ER : 1980 PHYSICIAN: HAMMAD BEARD MD ADMIT DATE: 02/15/18/ER Draft Date of Exam:02/15/18 CHEST 1 VIEW, AP/PA ONLY PA chest at 236. INDICATION: Fever, malaise Heart size is within normal limits and stable when compared to 10/13/2017. The lungs are clear. There is no evidence for failure, pneumonia or a pleural effusion. Mediastinum is not widened. The osseous structures are intact. IMPRESSION: There is no evidence for an acute cardiopulmonary abnormality. Dictated on workstation # [id number] Dict: 02/15/18 1428 Trans: 02/15/18 1439 [facility] [id number] Interpreted by: HENRI JERONIMO MD Electronically signed by: Reviewed: Reviewed by Me Diagonstic Imaging: CT Plain Films/CT/US/NM/MRI: abdomen, pelvis (with contrast) Comments [facility] [place] [place] NAME: JEANNA MILLIGAN [facility] REC#: [id number] PT STATUS: REG ER : 1980 PHYSICIAN: HAMMAD BEARD MD ADMIT DATE: 02/15/18/ER Draft Date of Exam:02/15/18 CT ABDOMEN/PELVIS W PROCEDURE: CT abdomen and pelvis with contrast. TECHNIQUE: Multiple contiguous axial images were obtained through the abdomen and pelvis after administration of intravenous contrast. INDICATION: Abdominal pain. FINDINGS: The previous CT abdomen/pelvis exam of 10/13/17 noted a periumbilical hernia containing a few loops of small bowel. There is no sign of a bowel obstruction, however. On this exam, the defect in the anterior abdominal wall is again evident and no different. As on the previous study, there are still segments of small bowel extending through this defect but there is no incarceration or obstruction of the bowel. The previous study also noted enteritis of the distal small bowel and the terminal ileum. There still appears to be some generalized mild thickening of the distal small bowel and the terminal ileum. There is no pelvic mass, abscess or free fluid collection noted, however. As seen on the prior exam, the uterus is surgically absent. The urinary bladder is grossly unremarkable. The appendix does not appear to be abnormally thickened. The liver, spleen, pancreas, adrenals, kidneys, aorta and inferior vena cava are unremarkable for an acute abnormality. As noted on the prior exam, the gallbladder is surgically absent. The stomach is filled with particulate matter and consequently difficult to assess. The lung bases are clear. The bone windows show no sign of a fracture or of a destructive lesion. IMPRESSION: 1. The appearance of the abdomen and pelvis is similar to the prior exam. The defect in the anterior abdominal wall and the segments of bowel extending through the defect seen previously are again evident. There is still no sign of obstruction or incarceration of the bowel. 2. There seems to be persistent enteritis of the distal small bowel and terminal ileum. If further study is desired, then a contrast small bowel exam would be recommended. 3. There is no acute abnormality of the abdomen or pelvis noted otherwise. Dictated on workstation # [id number] Dict: 02/15/18 1430 Trans: 02/15/18 1445 [facility] [id number] Interpreted by: HENRI JERONIMO MD Electronically signed by: Reviewed: Reviewed by Me Departure Impression Primary Impression: Gastroenteritis and colitis, viral Disposition: 01 HOME, SELF-CARE Condition: Improved Departure-Patient Inst. Decision time for Depature: 16:17 Referrals: FABI ABDALLA DO (PCP/Family) Primary Care Physician Patient Instructions: Viral Gastroenteritis, Adult (DC) Add. Discharge Instructions: Drink plenty of fluids, use Zofran 1 tablet every 6 hours as needed for nausea or vomiting. Follow-up with primary care doctor if your symptoms are not improving in 5 days. All discharge instructions reviewed with patient and/or family. Voiced understanding. Work/School Note: Work Release Form Date Seen in the Emergency Department: Feb 15, 2018 Return to Work: Feb 18, 2018 Restrictions: No Restrictions Copy Copies To 1: FABI ABDALLA TITUS J Feb 15, 2018 14:00
[2018-02-15 14:02] LABS: BASOPHILS % (AUTO) 0 % (0-10); EOSINOPHILS % (AUTO) 0 % (0-10); HEMATOCRIT 42 % (35-52); HEMOGLOBIN 13.9 G/DL (11.5-16.0); LYMPHOCYTES # (AUTO) 0.8 X 10^3 (1.0-4.0); LYMPHOCYTES % (AUTO) 17 % (12-44); MEAN CORPUSCULAR HEMOGLOBIN 30 PG (25-34); MEAN CORPUSCULAR HGB CONC 33 G/DL (32-36); MEAN CORPUSCULAR VOLUME 91 FL (80-99); MEAN PLATELET VOLUME 9.7 FL (7.4-10.4); MONOCYTES # (AUTO) 0.3 X 10^3 (0.0-1.0); MONOCYTES % (AUTO) 7 % (0-12); NEUTROPHILS # (AUTO) 3.8 X 10^3 (1.8-7.8); NEUTROPHILS % (AUTO) 76 % (42-75); PLATELET COUNT 167 10^3/uL (130-400); RED BLOOD COUNT 4.66 10^6/uL (4.35-5.85); RED CELL DISTRIBUTION WIDTH 13.4 % (10.0-14.5); WHITE BLOOD COUNT 4.9 10^3/uL (4.3-11.0)
[2018-02-15 14:10] LABS: PROTHROMBIN TIME PATIENT 13.1 SEC (12.2-14.7)
[2018-02-15] MEDS ORDERED: NS 100 ML (IVPB) BAG IV ONE (14:15)
[2018-02-15] MEDS ORDERED: IOHEXOL 350 MG/ML 100 ML (OMNIPAQUE 350) VIAL IV ONE (14:15)
[2018-02-15 14:16] LABS: ALANINE AMINOTRANSFERASE 33 U/L (0-55); ALBUMIN 3.8 GM/DL (3.2-4.5); ALKALINE PHOSPHATASE 74 U/L (40-136); BILIRUBIN,TOTAL 0.3 MG/DL (0.1-1.0); BUN/CREATININE RATIO 9; CALCIUM 8.9 MG/DL (8.5-10.1); CARBON DIOXIDE 23 MMOL/L (21-32); CHLORIDE 107 MMOL/L (98-107); CREATININE SERUM 0.85 MG/DL (0.60-1.30); GFR ESTIMATED > 60; GLUCOSE 121 MG/DL (70-105); POTASSIUM 3.9 MMOL/L (3.6-5.0); SODIUM 141 MMOL/L (135-145)
--- NOTE | 2018-02-15 14:40 | Diagnostic Imaging Report ---
PA chest at 236. INDICATION: Fever, malaise Heart size is within normal limits and stable when compared to 10/13/2017. The lungs are clear. There is no evidence for failure, pneumonia or a pleural effusion. Mediastinum is not widened. The osseous structures are intact. IMPRESSION: There is no evidence for an acute cardiopulmonary abnormality. Dictated by: Dictated on workstation # [id number]
--- NOTE | 2018-02-15 14:46 | Diagnostic Imaging Report ---
PROCEDURE: CT abdomen and pelvis with contrast. TECHNIQUE: Multiple contiguous axial images were obtained through the abdomen and pelvis after administration of intravenous contrast. INDICATION: Abdominal pain. FINDINGS: The previous CT abdomen/pelvis exam of 10/13/17 noted a periumbilical hernia containing a few loops of small bowel. There is no sign of a bowel obstruction, however. On this exam, the defect in the anterior abdominal wall is again evident and no different. As on the previous study, there are still segments of small bowel extending through this defect but there is no incarceration or obstruction of the bowel. The previous study also noted enteritis of the distal small bowel and the terminal ileum. There still appears to be some generalized mild thickening of the distal small bowel and the terminal ileum. There is no pelvic mass, abscess or free fluid collection noted, however. As seen on the prior exam, the uterus is surgically absent. The urinary bladder is grossly unremarkable. The appendix does not appear to be abnormally thickened. The liver, spleen, pancreas, adrenals, kidneys, aorta and inferior vena cava are unremarkable for an acute abnormality. As noted on the prior exam, the gallbladder is surgically absent. The stomach is filled with particulate matter and consequently difficult to assess. The lung bases are clear. The bone windows show no sign of a fracture or of a destructive lesion. IMPRESSION: 1. The appearance of the abdomen and pelvis is similar to the prior exam. The defect in the anterior abdominal wall and the segments of bowel extending through the defect seen previously are again evident. There is still no sign of obstruction or incarceration of the bowel. 2. There seems to be persistent enteritis of the distal small bowel and terminal ileum. If further study is desired, then a contrast small bowel exam would be recommended. 3. There is no acute abnormality of the abdomen or pelvis noted otherwise. Dictated by: Dictated on workstation # [id number]
[2018-02-15 15:10] LABS: BILIRUBIN,URINE NEGATIVE (NEGATIVE); CLARITY,URINE CLEAR; COLOR,URINE YELLOW; GLUCOSE, URINE (UA) NEGATIVE (NEGATIVE); KETONES,URINE NEGATIVE (NEGATIVE); LEUKOCYTE ESTERASE ,URINE NEGATIVE (NEGATIVE); NITRITE,URINE NEGATIVE (NEGATIVE); PH,URINE 6.5 (5-9); PROTEIN,URINE 2+ (NEGATIVE); UROBILINOGEN,URINE NORMAL (NORMAL)
[2018-02-15] MEDS: PIPERACILLIN SODIUM/TAZOBACTAM 4.5 GM in NS (IVPB) 100 ML IV ONE ×2 (15:11→15:37)
[2018-02-15 15:17] LABS: BACTERIA,URINE NEGATIVE /HPF
[2018-02-15 16:28] VITALS: BP 102/59
== END 2018-02-15 16:28 | disposition home or self-care (01) ==
LOC: EDUNIT# 12:53 → ER 12:55
DX: A08.4 Viral intestinal infection, unspecified (principal); K21.9 Gastro-esophageal reflux disease without esophagitis; F90.9 Attention-deficit hyperactivity disorder, unspecified type; F32.9 Major depressive disorder, single episode, unspecified; G43.909 Migraine, unspecified, not intractable, without status migrainosus; F17.210 Nicotine dependence, cigarettes, uncomplicated; Z80.0 Family history of malignant neoplasm of digestive organs; Z82.49 Family history of ischemic heart disease and other diseases of the circulatory system; Z87.59 Personal history of other complications of pregnancy, childbirth and the puerperium; Z90.710 Acquired absence of both cervix and uterus; Z87.440 Personal history of urinary (tract) infections; Z87.01 Personal history of pneumonia (recurrent); Z88.1 Allergy status to other antibiotic agents; Z88.8 Allergy status to other drugs, medicaments and biological substances; Z88.0 Allergy status to penicillin; Z87.19 Personal history of other diseases of the digestive system
CPT/HCPCS: 36415; 71045; 74177; 80053; 81000; 83605; 85025; 85610; 85730; 87040; 87077; 96361; 96365; 96375

== ENCOUNTER → 2020-03-12 | Outpatient (CLI) | payer SELFPAY ==
[~2020-03-12] MED LIST changes: +ACHYD1T PO; +AMPH15CA5; -HYDR-3820 PO; -IBUP-2055 PO; +IBUP-2473 PO; -MINO100C2 PO; +MINO100C5 PO; -OXYC-197 PO; +OXYC1TAB87 PO
--- NOTE | 2020-03-12 18:00 | Diagnostic Imaging Report ---
EXAMINATION: CT head without contrast. TECHNIQUE: Multiple contiguous axial images were obtained through the brain without the use of intravenous contrast. All CT scans use one or more of the following dose optimizing techniques: automated exposure control, MA and/or KvP adjustment based on patient size and exam type or iterative reconstruction. HISTORY: Scalp tenderness. COMPARISON: None available. FINDINGS: The montoya-white matter differentiation is normal. No mass effect or midline shift. The ventricles are normal in size and configuration. Basilar cisterns are patent. There are no intra- or extra-axial fluid collections. There is no intracranial hemorrhage. No abnormality is seen posterior to the left ear. There is a normal-appearing 5 mm lymph node at this location. The orbits are normal. Paranasal sinuses are normal. Mastoid air cells are clear. No soft tissue abnormality is seen. No osseus lesions or fractures are seen. IMPRESSION: No acute intracranial abnormality. No abnormality is seen posterior to the left ear. Dictated by: Dictated on workstation # [id number]
== END ==
LOC: RAD 17:32
PROVIDERS: ATTEND Nurse Practitioner Family
DX: L98.8 Other specified disorders of the skin and subcutaneous tissue (principal)
CPT/HCPCS: 70450

== ENCOUNTER 2021-12-29 18:56 | Emergency (ER) | payer SELFPAY ==
[~2021-12-29] VITALS: Ht 165 cm; Wt 100.0 kg
[~2021-12-29 18:56] MED LIST changes: +CLIN-144 PO; -CLIN300C11 PO; -SULF1TAB35 PO
--- NOTE | 2021-12-29 20:19 | ED Abdominal Pain ---
General Chief Complaint: Abdominal/GI Problems Stated Complaint: ABD/BACK PAIN Nursing Triage Note: sharp/throbbing mid abdominal pain, lower/mid back pain x3 days. Source of Information: Patient Exam Limitations: No Limitations History of Present Illness Date Seen by Provider: Dec 29, 2021 Time Seen by Provider: 20:02 Initial Comments Patient is a 41-year-old female who presents to the emergency department today with a chief complaint of low back pain, worsening over the last 3 days. Also in the last 24 hours some significantly intense diffuse abdominal pain. She has a fairly extensive past surgical history regarding her abdomen with multiple different hernia repairs. She is not really nauseated. She states she has had chronic diarrhea. Nothing black nothing bloody. She states she is not exactly sure what caused the back pain to start. It is worse with movement and walking. She denies any numbness tingling or weakness to her lower extremities. She states it hurts to bear weight more on her left leg than her right leg. She denies any saddle anesthesia, loss of bowel or bladder function. She is able to urinate when needed. No fevers or chills. Nothing makes the abdominal pain any better or any worse. She has been using [id number]-kwptczy medications and lidocaine patches on her back without relief of symptoms. She was concerned either her back was making her abdomen hurt or her abdomen was making her back hurt. No dysuria, urgency or frequency. She has had a hysterectomy, no abnormal vaginal discharge. All other review of systems reviewed and negative except as stated. Timing/Duration: 2-3 Days Severity/Quality: Cramping, Sharp Location: Generalized Abdomen Radiation: No Radiation Activities at Onset: None Modifying Factors: Worsens With Movement Associated Symptoms: Back Pain Allergies and Home Medications Allergies Coded Allergies: vancomycin (Verified Allergy, Intermediate, [employer], 05/12/17) ciprofloxacin (Unverified Allergy, Unknown, 12/20/15) ciprofloxacin HCl (Unverified Allergy, Unknown, 12/20/15) duloxetine (Verified Allergy, Unknown, 12/20/15) Patient Home Medication List Home Medication List Reviewed: Yes Hydrocodone/Acetaminophen (Hydrocodone-Acetamin 5-325 mg) 1 Each Tablet, 1 TAB PO Q6H PRN for PAIN-MODERATE (5-7) Prescribed by: ALLISON MARIN on 12/29/212225 Methocarbamol (Methocarbamol) 750 Mg Tablet, 750 MG PO Q8H PRN for muscle spasm Prescribed by: ALLISON MARIN on 12/29/212224 Discontinued Medications Dextroamphetamine/Amphetamine (Adderall Xr 15 mg Capsule) 15 Mg Cap.er.24h, (Reported) Discontinued Reason: No Longer Taking Entered as Reported by: JC ROBBINS on 02/15/18 1400 Last Action: Discontinued Hydrocodone Bit/Acetaminophen (Lortab 5 Mg Tablet) 1 Tab Tab, 1 EACH PO Q4H Discontinued Reason: No Longer Taking Prescribed by: MIAN GOMEZ on 10/13/17224 Last Action: Discontinued Lactobacillus Acidophilus (Acidophilus) 1 Each Capsule, 2 EACH PO QID Discontinued Reason: No Longer Taking Prescribed by: MIAN GOMEZ on 10/13/17224 Last Action: Discontinued Ondansetron (Zofran Odt) 4 Mg Tab.rapdis, 4 MG PO Q4H Discontinued Reason: No Longer Taking Prescribed by: MIAN GOMEZ on 10/13/17225 Last Action: Discontinued Pantoprazole Sodium (Protonix) 40 Mg Tablet.dr, 40 MG PO DAILY Discontinued Reason: No Longer Taking Prescribed by: MIAN GOMEZ on 10/13/17224 Last Action: Discontinued Sucralfate (Carafate) 1 Gm Tablet, 1 GM PO QIDACHS Discontinued Reason: No Longer Taking Prescribed by: MIAN GOMEZ on 10/13/17224 Last Action: Discontinued Review of Systems Review of Systems Constitutional: see HPI EENTM: No Symptoms Reported Respiratory: No Symptoms Reported Cardiovascular: No Symptoms Reported Gastrointestinal: Abdominal Pain, Diarrhea Genitourinary: No Symptoms Reported Musculoskeletal: back pain Skin: no symptoms reported Psychiatric/Neurological: No Symptoms Reported All Other Systems Reviewed Negative Unless Noted: Yes Past Kzrrhkr-Nidwqu-Rghrue Hx Patient Social History Tobacco Use?: Yes Tobacco type used: Cigarettes Substance use?: No Alcohol Use?: No Pt feels they are or have been: No Immunizations Up To Date Tetanus Booster (TDap): Less than 5yrs Seasonal Allergies Seasonal Allergies: No Past Medical History Surgery/Hospitalization HX: hernia x7, c-sect x4, gall bladder, hysterectomy, mv prolapse. 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 Sexually Transmitted Disease: No HIV/AIDS: No Genitourinary: No UTI-Chronic Gastrointestinal: Yes (UMBILICAL & INCISIONAL HERNIA, GASTRITIS) Abdominal Hernia, Gastroesophageal Reflux Musculoskeletal: Yes Degenerate Disk Disease, Scoliosis, Chronic Back Pain Endocrine: No Loss of Vision: Denies Hearing Impairment: Denies Cancer: No Psychosocial: Yes ADD/ADHD, Depression Integumentary: Yes (CHRONIC BREAST INFECTIONS, ABDOMINAL WALL CELLULITIS) Psoriasis Blood Disorders: No Adverse Reaction/Blood Tranf: No Family Medical History Arthritis 19 MOTHER Asthma 19 MOTHER G8 BROTHER Cardiovascular disease 19 FATHER Colon cancer Deafness or hearing loss 19 MOTHER (grandfather) Diabetes mellitus 19 FATHER Drug abuse G8 BROTHER Gastroenteritis G8 SISTER (CROHNS) Headache disorder 19 MOTHER Hypertension 19 FATHER 19 MOTHER Myocardial infarction 19 FATHER Psychosocial problem 19 MOTHER Respiratory disorder 19 FATHER Cancer, GI Disease Physical Exam Vital Signs Vital Signs - First Documented 12/29/21 19:50 Temp 36.9 Pulse 110 Resp 16 B/P (MAP) 132/87 (102) Pulse Ox 100 O2 Delivery Room Air Capillary Refill : Less Than 3 Seconds Height/Weight/BMI Height: 5'5.00" Weight: 193lbs. 0oz. [id number]; 36.00 BMI Method:Stated General Appearance: WD/WN, no apparent distress HEENT: PERRL/EOMI Neck: full range of motion Respiratory: lungs clear, normal breath sounds, no respiratory distress Cardiovascular: regular rate, rhythm Gastrointestinal: soft, tenderness (diffuse tenderness without anything focal - BS are present; no rebound or involuntary guarding) Extremities: normal range of motion, non-tender, normal inspection Back: normal inspection, vertebral tenderness (approx L3- sacrum and para spinous muscles), other (neg SLR bilat; normal DTR's) Neurologic/Psychiatric: no motor/sensory deficits, alert, normal mood/affect, oriented x 3 Skin: normal color, warm/dry Progress/Results/Core Measures Results/Orders Lab Results Laboratory Tests Test 12/29/21 20:24 4/16/22 22:00 Range/Units White Blood Count 11.3 H 4.3-11.0 10^3/uL Red Blood Count 4.75 3.80-5.11 10^6/uL Hemoglobin 14.4 11.5-16.0 g/dL Hematocrit 45 35-52 % Mean Corpuscular Volume 94 80-99 fL Mean Corpuscular Hemoglobin 30 25-34 pg Mean Corpuscular Hemoglobin Concent 32 32-36 g/dL Red Cell Distribution Width 12.5 10.0-14.5 % Platelet Count 241 130-400 10^3/uL Mean Platelet Volume 9.6 9.0-12.2 fL Immature Granulocyte % (Auto) 0 % Neutrophils (%) (Auto) 61 42-75 % Lymphocytes (%) (Auto) 29 12-44 % Monocytes (%) (Auto) 8 0-12 % Eosinophils (%) (Auto) 2 0-10 % Basophils (%) (Auto) 0 0-10 % Neutrophils # (Auto) 6.9 1.8-7.8 10^3/uL Lymphocytes # (Auto) 3.3 1.0-4.0 10^3/uL Monocytes # (Auto) 0.9 0.0-1.0 10^3/uL Eosinophils # (Auto) 0.2 0.0-0.3 10^3/uL Basophils # (Auto) 0.0 0.0-0.1 10^3/uL Immature Granulocyte # (Auto) 0.0 0.0-0.1 10^3/uL Sodium Level 143 135-145 MMOL/L Potassium Level 3.5 L 3.6-5.0 MMOL/L Chloride Level 103 98-107 MMOL/L Carbon Dioxide Level 28 21-32 MMOL/L Anion Gap 12 5-14 MMOL/L Blood Urea Nitrogen 9 7-18 MG/DL Creatinine 0.89 0.60-1.30 MG/DL Estimat Glomerular Filtration Rate 83 BUN/Creatinine Ratio 10 Glucose Level 95 70-105 MG/DL Calcium Level 9.4 8.5-10.1 MG/DL Corrected Calcium 9.3 8.5-10.1 MG/DL Total Bilirubin 0.2 0.1-1.0 MG/DL Aspartate Amino Transf (AST/SGOT) 18 5-34 U/L Alanine Aminotransferase (ALT/SGPT) 22 0-55 U/L Alkaline Phosphatase 74 40-136 U/L Total Protein 7.2 6.4-8.2 GM/DL Albumin 4.1 3.2-4.5 GM/DL Urine Color YELLOW Urine Clarity CLEAR Urine pH 7.0 5-9 Urine Specific [place] <=1.005 1.016-1.022 Urine Protein NEGATIVE NEGATIVE Urine Glucose (UA) NEGATIVE NEGATIVE Urine Ketones NEGATIVE NEGATIVE Urine Nitrite NEGATIVE NEGATIVE Urine Bilirubin NEGATIVE NEGATIVE Urine Urobilinogen 0.2 < = 1.0 MG/DL Urine Leukocyte Esterase NEGATIVE NEGATIVE Urine RBC (Auto) NEGATIVE NEGATIVE Urine RBC NONE /HPF Urine WBC 0-2 /HPF Urine Squamous Epithelial Cells 5-10 /HPF Urine Crystals NONE /LPF Urine Bacteria FEW H /HPF Urine Casts NONE /LPF Urine Mucus NEGATIVE /LPF Urine Culture Indicated YES My Orders Orders - ALLISON MARIN MD Ed Iv/Invasive Line Start (12/29/21 20:16) Cbc With Automated Diff (12/29/21 20:16) Comprehensive Metabolic Panel (12/29/21 20:16) Ct Abdomen/Pelvis W (12/29/21 20:16) Ns Iv 1000 Ml (Sodium Chloride 0.9%) (12/29/21 20:30) Fentanyl Inj (Sublimaze Injection) (12/29/21 20:30) Ondansetron Injection (Zofran Injectio (12/29/21 20:30) Ua Culture If Indicated (12/29/21 20:19) Iohexol Injection (Omnipaque 350 Mg/Ml 1 (12/29/21 21:00) Ns (Ivpb) (Sodium Chloride 0.9% Ivpb Bag (12/29/21 21:00) Urine Culture (12/29/21 22:00) Ketorolac Injection (Toradol Injection) (12/29/21 22:30) Orphenadrine Inj (Ed Only) (Norflex Inje (12/29/21 22:30) Medications Given in ED Current Medications Medications Dose Ordered Sig/Sheila Route Start Time Stop Time Status Last Admin Dose Admin Fentanyl Citrate 50 mcg ONCE ONCE IVP 12/29/21 20:30 12/29/21 20:32 DC 12/29/21 20:24 50 MCG Iohexol 100 ml ONCE ONCE IV 12/29/21 21:00 12/29/21 21:01 DC 12/29/21 20:52 100 ML Ondansetron HCl 4 mg ONCE ONCE IVP 12/29/21 20:30 12/29/21 20:32 DC 12/29/21 20:24 4 MG Sodium Chloride 100 ml ONCE ONCE IV 12/29/21 21:00 12/29/21 21:01 DC 12/29/21 20:52 80 ML Vital Signs/I&O 12/29/21 19:50 Temp 36.9 Pulse 110 Resp 16 B/P (MAP) 132/87 (102) Pulse Ox 100 O2 Delivery Room Air Blood Pressure Mean: 102 Progress Progress Note : Time: 22:21 Progress Note Patient reevaluated after IV fluids and fentanyl. She states her pain is improved in her abdomen. Pain in back is still there. CT is suggestive of maybe some mild terminal ileitis otherwise unremarkable. Labs are also unremarkable. CT also was unremarkable as far as bony structures relating to her back pain. We will add Toradol and Norflex to her pain medications. I will send her home with some muscle relaxers and pain medications as well. Return precautions are discussed. I do not believe there is any indication at this time for oral antibiotics regarding the terminal ileitis. I recommend she follow-up with her primary care physician. She is comfortable with this plan of care. All questions are sought and answered. Diagnostic Imaging Diagonstic Imaging: CT Comments [facility], [place] NAME: JEANNA DOMINGO [facility] REC#: [id number] PT STATUS: REG ER : 1980 PHYSICIAN: ALLISON MARIN MD ADMIT DATE: 12/29/21/ER Draft Date of Exam:12/29/21 CT ABDOMEN/PELVIS W EXAMINATION: CT abdomen and pelvis with intravenous contrast. TECHNIQUE: Multiple contiguous axial images were obtained through the abdomen and pelvis after the uneventful administration of intravenous contrast. All CT scans use one or more of the following dose optimizing techniques: automated exposure control, MA and/or KvP adjustment based on patient size and exam type or iterative reconstruction. HISTORY: Severe abdominal pain. COMPARISON: 02/15/2018. FINDINGS: Limited views of the lower thorax are unremarkable. The liver is normal without focal lesion. There is no biliary ductal dilation. Gallbladder is absent. Pancreas is normal. Spleen is normal. Adrenal glands are normal. The kidneys are normal. There is no hydronephrosis. Urinary bladder is normal. There is mild wall thickening of the terminal ileum with adjacent enlarged lymph nodes. There has been a ventral abdominal hernia repair. No free fluid or air. No abdominal or pelvic lymphadenopathy. Aorta is normal in caliber without aneurysm. There are no suspicious osseus lesions. IMPRESSION: Mild wall thickening of the terminal ileum with adjacent enlarged lymph nodes concerning for terminal ileitis. Dictated on workstation # [id number] Dict: 12/29/212058 Trans: 12/29/212107 [facility] [phone] Interpreted by: RACHEL ALEGRE MD Electronically signed by: Departure Impression Primary Impression: Abdominal pain Qualified Codes: R10.84 - Generalized abdominal pain Additional Impression: Low back pain Qualified Codes: M54.50 - Low back pain, unspecified Disposition: 01 HOME, SELF-CARE Condition: Improved Departure-Patient Inst. Decision time for Depature: 22:22 Referrals: MADHURI MAJANO DO (PCP/Family) Primary Care Physician Patient Instructions: Low Back Pain in Adults Add. Discharge Instructions: Drink plenty of fluids to stay well-hydrated. Monitor yourself for fever, worsening abdominal pain and diarrhea. You should follow-up with your surgeon as well as your primary care physician regarding your chronic abdominal complaints. I have written your prescription for pain medications as well as muscle relaxers to take for your back. Pain medications can be addictive. Take them only as needed. I have only given you a few tablets. You can also take extra strength Tylenol every 6 hours or Aleve, 2 pills in the morning with food and 2 pills at night with food for pain. Alternate heat and ice to the areas of your low back that are painful. You may also look into getting the Salonpas patches which are lidocaine patches and using those as directed on the packaging to help relieve your pain. Return to the emergency department if you develop high fever, vomiting, bloody stool or any other worsening complaints. Scripts Hydrocodone/Acetaminophen (Hydrocodone-Acetamin 5-325 mg) 1 Each Tablet 1 TAB PO Q6H PRN for PAIN-MODERATE (5-7), #10 TAB Prov: ALLISON MARIN MD 12/29/21 Methocarbamol (Methocarbamol) 750 Mg Tablet 750 MG PO Q8H PRN for muscle spasm, #15 TAB Prov: ALLISON MARIN MD 12/29/21 ALLISON MARIN MD Dec 29, 2021 20:19
[2021-12-29] MEDS ORDERED: NS IV 1000 ML 1,000 ML IV SCH (20:30)
[2021-12-29] MEDS ORDERED: fentaNYL INJ 100 MCG/2 ML AMP IVP ONE (20:30)
[2021-12-29] MEDS ORDERED: ONDANSETRON 4 MG/2 ML (SDV) Z0FRAN IVP ONE (20:30)
[2021-12-29 20:34] LABS: BASOPHILS % (AUTO) 0 % (0-10); EOSINOPHILS # (AUTO) 0.2 10^3/uL (0.0-0.3); EOSINOPHILS % (AUTO) 2 % (0-10); HEMATOCRIT 45 % (35-52); HEMOGLOBIN 14.4 g/dL (11.5-16.0); LYMPHOCYTES # (AUTO) 3.3 10^3/uL (1.0-4.0); LYMPHOCYTES % (AUTO) 29 % (12-44); MEAN CORPUSCULAR HEMOGLOBIN 30 pg (25-34); MEAN CORPUSCULAR HGB CONC 32 g/dL (32-36); MEAN CORPUSCULAR VOLUME 94 fL (80-99); MEAN PLATELET VOLUME 9.6 fL (9.0-12.2); MONOCYTES # (AUTO) 0.9 10^3/uL (0.0-1.0); MONOCYTES % (AUTO) 8 % (0-12); NEUTROPHILS # (AUTO) 6.9 10^3/uL (1.8-7.8); NEUTROPHILS % (AUTO) 61 % (42-75); PLATELET COUNT 241 10^3/uL (130-400); WHITE BLOOD COUNT 11.3 10^3/uL (4.3-11.0)
[2021-12-29 20:54] LABS: ALBUMIN 4.1 GM/DL (3.2-4.5); POTASSIUM 3.5 MMOL/L (3.6-5.0)
[2021-12-29 20:55] LABS: CALCIUM 9.4 MG/DL (8.5-10.1)
[2021-12-29 20:57] LABS: TOTAL PROTEIN 7.2 GM/DL (6.4-8.2)
[2021-12-29 20:58] LABS: BILIRUBIN,TOTAL 0.2 MG/DL (0.1-1.0)
[2021-12-29 21:00] LABS: CREATININE SERUM 0.89 MG/DL (0.60-1.30)
[2021-12-29] MEDS ORDERED: NS 100 ML (IVPB) BAG IV ONE (21:00)
[2021-12-29] MEDS ORDERED: IOHEXOL 350 MG/ML 100 ML (OMNIPAQUE 350) VIAL IV ONE (21:00)
--- NOTE | 2021-12-29 21:09 | Diagnostic Imaging Report ---
EXAMINATION: CT abdomen and pelvis with intravenous contrast. TECHNIQUE: Multiple contiguous axial images were obtained through the abdomen and pelvis after the uneventful administration of intravenous contrast. All CT scans use one or more of the following dose optimizing techniques: automated exposure control, MA and/or KvP adjustment based on patient size and exam type or iterative reconstruction. HISTORY: Severe abdominal pain. COMPARISON: 02/15/2018. FINDINGS: Limited views of the lower thorax are unremarkable. The liver is normal without focal lesion. There is no biliary ductal dilation. Gallbladder is absent. Pancreas is normal. Spleen is normal. Adrenal glands are normal. The kidneys are normal. There is no hydronephrosis. Urinary bladder is normal. There is mild wall thickening of the terminal ileum with adjacent enlarged lymph nodes. There has been a ventral abdominal hernia repair. No free fluid or air. No abdominal or pelvic lymphadenopathy. Aorta is normal in caliber without aneurysm. There are no suspicious osseus lesions. IMPRESSION: Mild wall thickening of the terminal ileum with adjacent enlarged lymph nodes concerning for terminal ileitis. Dictated by: Dictated on workstation # [id number]
[2021-12-29 22:04] LABS: BILIRUBIN,URINE NEGATIVE (NEGATIVE); CLARITY,URINE CLEAR; COLOR,URINE YELLOW; GLUCOSE, URINE (UA) NEGATIVE (NEGATIVE); KETONES,URINE NEGATIVE (NEGATIVE); LEUKOCYTE ESTERASE ,URINE NEGATIVE (NEGATIVE); NITRITE,URINE NEGATIVE (NEGATIVE); PROTEIN,URINE NEGATIVE (NEGATIVE)
[2021-12-29 22:12] LABS: BACTERIA,URINE FEW /HPF; WBC,URINE 0-2 /HPF
[2021-12-29] MEDS ORDERED: METH-732 PO (22:25)
[2021-12-29] MEDS ORDERED: ACHD5005 PO (22:25)
[2021-12-29 22:30] VITALS: BP 113/79
[2021-12-29] MEDS ORDERED: ORPHENADRINE 60 MG/2 ML (NORFLEX) AMP (ED ONLY) IV ONE (22:30)
[2021-12-29] MEDS ORDERED: KETOROLAC 30 MG/ML VIAL IVP ONE (22:30)
== END 2021-12-29 22:33 | disposition home or self-care (01) ==
LOC: EDUNIT# 18:56 → ER 18:59
DX: R10.84 Generalized abdominal pain (principal); M54.50 Low back pain, unspecified
CPT/HCPCS: 36415; 74177; 80053; 81000; 85025; 87077; 87088